=== PATIENT | female | born 1935 | race Caucasian/White ===

== ENCOUNTER 2017-07-02 12:01 | Inpatient (IN) | payer MEDICARE, OTHER ==
[~2017-07-02] VITALS: Ht 157.5 cm; Wt 51.9 kg
[~2017-07-02 12:01] MED LIST: ATV/1 PO; LEVO50TA6 PO; LSN5 PO; MULTTAB58 PO; QUET1TAB34 PO; THM100 PO; ULT50X PO; VENL150T33 PO; VERA240C2 PO; WLLXL300 PO
[2017-07-02] MEDS ORDERED: SODIUM CHLORIDE 0.9% 1000ML 1,000 ML IV STA (12:17)
[2017-07-02] MEDS ORDERED: ACETAMINOPHEN 500 MG TAB PO STA (12:17)
[2017-07-02] MEDS ORDERED: SODIUM CHLORIDE 0.9% 1000ML 1,000 ML IV ONE (12:17)
--- NOTE | 2017-07-02 12:18 | EMERGENCY ROOM VISIT NOTE ---
History Report prepared by Cain: Elizabeth Foote Under the Supervision of: Dr. Chencho Phillips M.D. First contact with patient: 12:11 Chief Complaint: RESPIRATORY PROBLEMS Stated Complaint: COUGH,ACHY, CAN' WALK, TROUBLE BREATHING Nursing Triage Summary: c/o dry cough for 1 wk getting worse and increasing weakness and feeling like she is going to fall History of Present Illness The patient is a 81 year old female who presents to the Emergency Room with complaints of constant generalized illness beginning two days ago. The patient notes a difficulty ambulating, sore throat, cough, and fever. She denies any nausea, vomiting, or diarrhea. She reports taking alkalizer and aspirin for her symptoms with no relief. The patient takes a baby aspirin daily. Source of History: patient Onset: two days ago Position: other (generalized) Quality: other (illness) Timing: constant Associated Symptoms: + fevers, + sorethroat, + cough, No nausea, No vomiting Review of Systems See HPI for pertinent positives & negatives. A total of 10 systems reviewed and were otherwise negative. Past Medical & Surgical Medical Problems: (1) Alcohol abuse (2) Anxiety (3) Anxiety disorder (4) Chronic back pain (5) Chronic hepatitis C (6) Chronic pain (7) Depression (8) Essential hypertension (9) History of alcohol abuse (10) Hypothyroidism (11) Mechanincal Fall (12) Skin Tare/Skin infection Surgical Problems: (1) History of appendectomy (2) Hx of cholecystectomy Family History Patient reports no known family medical history. Social History Smoking Status: Former Smoker Alcohol Use: occasionally Drug Use: none Marital Status: Housing Status: lives with significant other Occupation Status: retired Current/Historical Medications Scheduled Amlodipine Besylate (Amlodipine Besylate), 10 MG PO DAILY Buspirone HCl (Buspirone HCl), 5 MG PO BID Duloxetine HCl (Duloxetine HCl), 20 MG PO DAILY Duloxetine HCl (Duloxetine HCl), 60 MG PO DAILY Folic Acid (Folic Acid), 1 MG PO DAILY Levothyroxine Sodium (Levothyroxine Sodium), 50 MCG PO DAILY Olanzapine (Olanzapine), 15 MG PO DAILY Trazodone Hcl (Trazodone), 50 MG PO DAILY Allergies Coded Allergies: No Known Allergies (Verified , 05/12/13) Physical Exam Vital Signs Date Time Temp Pulse Resp B/P (MAP) Pulse Ox O2 Delivery O2 Flow Rate FiO2 07/02/17 14:39 93 20 93/43 91 Room Air 07/02/17 13:22 37.7 85 20 93/58 94 Room Air 07/02/17 12:34 93 07/02/17 12:27 93 Room Air 07/02/17 12:03 38.1 111 22 106/72 94 Physical Exam GENERAL: Awake, alert, well-appearing, in no acute distress HENT: Normocephalic, atraumatic. Oropharynx unremarkable. EYES: Normal conjunctiva. Sclera non-icteric. NECK: Supple. No nuchal rigidity. FROM. No JVD. RESPIRATORY: Clear to auscultation. CARDIAC: Regular rate, normal rhythm. Extremities warm and well perfused. Pulses equal. ABDOMEN: Soft, non-distended. No tenderness to palpation. No rebound or guarding. No masses. RECTAL: Deferred. MUSCULOSKELETAL: Chest examination reveals no tenderness. The back is symmetrical on inspection without obvious abnormality. There is no CVA tenderness to palpation. No joint edema. LOWER EXTREMITIES: Calves are equal size bilaterally and non-tender. No edema. No discoloration. NEURO: Normal sensorium. No sensory or motor deficits noted. SKIN: No rash or jaundice noted. Medical Decision & Procedures ER Provider Diagnostic Interpretation: Radiology results as stated below per my review and radiologist interpretation: CHEST ONE VIEW PORTABLE FINDINGS: The bones soft tissues and hemidiaphragms are normal. The cardiomediastinal silhouette is normal. The lungs are clear. The pulmonary vasculature is normal. IMPRESSION: Negative chest. The above report was generated using voice recognition software. It may contain grammatical, syntax or spelling errors. Electronically signed by: Ander Rivera M.D. Laboratory Results 07/02/17 12:38 Red Blood Count 4.13, Mean Corpuscular Volume 93.7, Mean Corpuscular Hemoglobin 32.0, Mean Corpuscular Hemoglobin Concent 34.1, Mean Platelet Volume 10.3, Neutrophils (%) (Auto) 80.0, Lymphocytes (%) (Auto) 9.3, Monocytes (%) (Auto) 10.1, Eosinophils (%) (Auto) 0.0, Basophils (%) (Auto) 0.2, Neutrophils # (Auto ) 10.97, Lymphocytes # (Auto) 1.28, Monocytes # (Auto) 1.38, Eosinophils # (Auto ) 0.00, Basophils # (Auto) 0.03 07/02/17 12:38 Test 07/02/17 12:38 07/02/17 13:01 07/02/17 13:16 White Blood Count 13.71 K/uL (4.8-10.8) Red Blood Count 4.13 M/uL (4.2-5.4) Hemoglobin 13.2 g/dL (12.0-16.0) Hematocrit 38.7 % (37-47) Mean Corpuscular Volume 93.7 fL (80-100) Mean Corpuscular Hemoglobin 32.0 pg (25-34) Mean Corpuscular Hemoglobin Concent 34.1 g/dl (32-36) Platelet Count 186 K/uL (130-400) Mean Platelet Volume 10.3 fL (7.4-10.4) Neutrophils (%) (Auto) 80.0 % Lymphocytes (%) (Auto) 9.3 % Monocytes (%) (Auto) 10.1 % Eosinophils (%) (Auto) 0.0 % Basophils (%) (Auto) 0.2 % Neutrophils # (Auto) 10.97 K/uL (1.4-6.5) Lymphocytes # (Auto) 1.28 K/uL (1.2-3.4) Monocytes # (Auto) 1.38 K/uL (0.11-0.59) Eosinophils # (Auto) 0.00 K/uL (0-0.5) Basophils # (Auto) 0.03 K/uL (0-0.2) RDW Standard Deviation 50.0 fL (36.4-46.3) RDW Coefficient of Variation 14.9 % (11.5-14.5) Immature Granulocyte % (Auto) 0.4 % Immature Granulocyte # (Auto) 0.05 K/uL (0.00-0.02) Prothrombin Time 10.8 SECONDS (9.0-12.0) Prothromb Time International Ratio 1.0 (0.9-1.1) Activated Partial Thromboplast Time 25.4 SECONDS (21.0-31.0) Partial Thromboplastin Ratio 1.0 Anion Gap 9.0 mmol/L (3-11) Est Creatinine Clear Calc Drug Dose 25.4 ml/min Estimated GFR () 40.9 Estimated GFR (Non- 35.3 BUN/Creatinine Ratio 10.3 (10-20) Calcium Level 7.9 mg/dl (8.5-10.1) Total Bilirubin 0.5 mg/dl (0.2-1) Aspartate Amino Transf (AST/SGOT) 38 U/L (15-37) Alanine Aminotransferase (ALT/SGPT) 39 U/L (12-78) Alkaline Phosphatase 91 U/L (45-117) Total Creatine Kinase 52 U/L (26-192) Creatine Kinase MB 0.5 ng/ml (0.5-3.6) Creatine Kinase MB Ratio 1.0 (0-3.0) Troponin I 0.040 ng/ml (0-0.045) Total Protein 7.0 gm/dl (6.4-8.2) Albumin 3.1 gm/dl (3.4-5.0) Globulin 3.9 gm/dl (2.5-4.0) Albumin/Globulin Ratio 0.8 (0.9-2) Influenza Type A Antigen Neg for Influ A (NEG) Influenza Type B Antigen Neg for Influ B (NEG) Bedside Lactic Acid Venous 2.89 mmol/L (0.90-1.70) Labs reviewed by ED physician. Medications Administered Medications (Trade) Dose Ordered Sig/Kenzie Route Start Time Stop Time Status Last Admin Dose Admin Sodium Chloride 1,000 ml @ 999 mls/hr Q1H1M STAT IV 07/02/17 12:17 07/02/17 13:17 DC 07/02/17 12:17 999 MLS/HR Acetaminophen (Tylenol Tab) 1,000 mg NOW STAT PO 07/02/17 12:17 07/02/17 12:21 DC 07/02/17 12:24 1,000 MG Albuterol Sulfate (Ventolin 0.083% 2.5MG/3ML Neb) 2.5 mg NOW STAT INH 07/02/17 13:08 07/02/17 13:09 DC 07/02/17 13:34 2.5 MG Albuterol Sulfate (Ventolin 0.083% 2.5MG/3ML Neb) 2.5 mg NOW STAT INH 07/02/17 13:23 07/02/17 13:25 DC 07/02/17 13:23 2.5 MG Potassium Chloride (Stephie Ciel Elix) 40 meq NOW STAT PO 07/02/17 13:23 07/02/17 13:25 DC 07/02/17 13:33 40 MEQ Ceftriaxone Sodium (Rocephin Inj) 1 gm NOW STAT IV 07/02/17 14:13 07/02/17 14:15 DC 07/02/17 14:29 1 GM Vancomycin HCl (Vancomycin 1gm/ 270ml Nss) 1 gm NOW STAT IV 07/02/17 14:13 07/02/17 14:15 DC 07/02/17 14:30 1 GM Potassium Chloride (Stephie Ciel Elix) 40 meq NOW STAT PO 07/02/17 14:45 07/02/17 14:47 DC 07/02/17 16:10 40 MEQ ECG Per My Interpretation Indication: weakness Rate (beats per minute): 96 Rhythm: sinus rhythm Findings: T-wave inversion (Lateral), other (no ST elevation or depression) ED Course 1212: Past medical records reviewed. The patient was evaluated in room A3. A complete history and physical examination was performed. 1217: Ordered Tylenol Tab 1000 mg PO, Sodium Chloride 1000 ml @ 999 mls/hr, Sodium Chloride 1000 ml @ 999 mls/hr. 1308: Ordered Albuterol Sulfate 2.5 mg INH. 1323: Ordered Potassium Chloride 40 meq PO, Albuterol Sulfate 2.5 mg INH. 1339: I updated the patient on her test results. She is resting comfortably. 1413: Ordered Vancomycin HCl 1 gm IV, Rocephin Inj 1 gm IV. 1427: I discussed the patient's case with Dr. Vargas, he has agreed to evaluate the patient for further management and care. Medical Decision Differential diagnosis: Etiologies such as viral syndrome, otitis, pharyngitis, pneumonia, influenza, meningitis, urinary tract infection, sepsis, bacteremia, as well as others were entertained. This is an 81-year-old female who presents complaining of weakness. Patient is hypotensive tachycardic and febrile upon arrival to the emergency department and therefore blood cultures and lactic acid were obtained. The patient was given 30 mL's per kilogram of fluid and started on antibiotics. Patient does not have any evidence of pneumonia on chest x-ray. Flu swab is negative. Patient does have an elevation in her white blood cell count. I did discuss the case with the hospitalist service who agreed to admit the patient. Patient is in agreement with treatment plan. Medication Reconcilliation Current Medication List: was personally reviewed by me Blood Pressure Screening Patient's blood pressure: Low blood pressure Consults Time Called: 1420 Consulting Physician: Dr. Vargas Returned Call: 1429 I discussed the patient's case with Dr. Vargas, he has agreed to evaluate the patient for further management and care. Impression Primary Impression: Sepsis Critical Care I have personally spent greater than 30 minutes of critical care time in the direct management of this patient. This includes bedside care, interpretation of diagnostic studies, and testing, discussion with consultants, patient, and family members, and other required patient management activities. This 30 minutes is in excess of all separately billable procedures. Scribe Attestation The scribe's documentation has been prepared under my direction and personally reviewed by me in its entirety. I confirm that the note above accurately reflects all work, treatment, procedures, and medical decision making performed by me. Departure Information Dispostion Being Evaluated By Hospitalist Referrals Cesar Parra M.D. (PCP) Patient Instructions My [facility] Problem Qualifiers Primary Impression: Sepsis Sepsis type: sepsis due to unspecified organism Qualified Codes: A41.9 - Sepsis, unspecified organism
[2017-07-02 13:01] LABS: HEMATOCRIT 38.7 % (37-47); HEMOGLOBIN 13.2 g/dL (12.0-16.0); MEAN CELL VOLUME 93.7 fL (80-100); MEAN CORPUSCULAR HGB CONC 34.1 g/dl (32-36); MEAN PLATELET VOLUME 10.3 fL (7.4-10.4); PLATELET COUNT 186 K/uL (130-400); RED CELL DISTRIBUTION WIDTH CV 14.9 % (11.5-14.5); WHITE BLOOD COUNT 13.71 K/uL (4.8-10.8)
[2017-07-02] MEDS ORDERED: ALBUTEROL 0.083% NEBU SOLN 3 ML VIAL INH STA ×2 (13:08→13:23)
[2017-07-02 13:09] LABS: PTT PATIENT 25.4 SECONDS (21.0-31.0)
[2017-07-02 13:18] LABS: BASO % 0.2 %; BASO ABS # 0.03 K/uL (0-0.2); IG# 0.05 K/uL (0.00-0.02); LYMPH % 9.3 %; LYMPH ABS # 1.28 K/uL (1.2-3.4); MONO % 10.1 %; MONO ABS # 1.38 K/uL (0.11-0.59); NEUT ABS # 10.97 K/uL (1.4-6.5)
[2017-07-02 13:19] LABS: ALBUMIN 3.1 gm/dl (3.4-5.0); CALCIUM 7.9 mg/dl (8.5-10.1); CREATININE 1.38 mg/dl (0.60-1.20); POTASSIUM 3.1 mmol/L (3.5-5.1)
[2017-07-02] MEDS ORDERED: POTASSIUM CHLORIDE 20 MEQ/15 ML UDC PO STA ×2 (13:23→14:45)
[2017-07-02 13:24] LABS: CKMB 0.5 ng/ml (0.5-3.6)
[2017-07-02] MEDS ORDERED: BSP/5 PO (13:40)
[2017-07-02] MEDS ORDERED: ZYP15 PO (13:40)
[2017-07-02] MEDS ORDERED: NRV/10 PO (13:40)
[2017-07-02] MEDS ORDERED: FLV1 PO (13:40)
[2017-07-02] MEDS ORDERED: TRAZ50TA35 PO (13:40)
[2017-07-02] MEDS ORDERED: CYM20 PO (13:40)
[2017-07-02] MEDS ORDERED: CYM60 PO (13:40)
[2017-07-02 13:46] LABS: INFLUENZA B ANTIGEN Neg for Influ B (NEG)
--- NOTE | 2017-07-02 13:53 | DIAGNOSTIC IMAGING REPORT ---
CHEST ONE VIEW PORTABLE CLINICAL HISTORY: Sepsis dyspnea COMPARISON STUDY: 05/12/2013 FINDINGS: The bones soft tissues and hemidiaphragms are normal. The cardiomediastinal silhouette is normal. The lungs are clear. The pulmonary vasculature is normal. IMPRESSION: Negative chest. The above report was generated using voice recognition software. It may contain grammatical, syntax or spelling errors. Electronically signed by: Ander Rivera M.D. 07/02/2017 1:52 PM Dictated Date/Time: 07/02/2017 1:51 PM
[2017-07-02] MEDS ORDERED: CEFTRIAXONE SOD INJ 1 GM ADDVIAL IV STA (14:13)
[2017-07-02] MEDS ORDERED: VANCOMYCIN 1GM ED/ASU OMNICELL IV STA (14:13)
[2017-07-02] MEDS ORDERED: ONDANSETRON INJ 2 MG/ML 2 ML VIAL IV STA (14:45)
[2017-07-02] MEDS ORDERED: ALUMINUM/MAGNESIUM/SIMETH (MAALOX MAX) 30 ML UDC PO PRN (15:45)
[2017-07-02] MEDS ORDERED: ONDANSETRON INJ 2 MG/ML 2 ML VIAL IV PRN (15:45)
[2017-07-02] MEDS ORDERED: MAGNESIUM HYDROXIDE SUSP 30 ML UDC PO PRN (15:45)
[2017-07-02] MEDS ORDERED: ACETAMINOPHEN 325 MG TAB PO PRN (15:45)
[2017-07-02 17:04] VITALS: BP 114/60; PULSE 89; TEMP 36.9; O2SAT 91; Ht 157.5 cm; Wt 51.9 kg
--- NOTE | 2017-07-02 17:24 | History and Physical ---
History & Physical Date & Time of Service: Jul 02, 2017 at 17:10 Chief Complaint: Sepsis Primary Care Physician: Cesar Parra M.D. History of Present Illness Source: patient, family, clinic records This is an 81 year old female with a PMH of major depressive disorder with anxiety, hypertension, hypothyroidism, CKD stage 3 - presents with a 3-4 day history of a cough, which became more productive yesterday (07/01) - and worsening weakness/ambulatory dysfunction and lethargy. Patient tells me she feels some fevers/chills, muscle weakness throughout; she has a cough. Patient' s son brought her in because he was concerned with how weak she was. Upon presentation, patient noted to have a fever, hypotension, tachycardia, elevated white count and lactic acid level. Patient tells me the only difference she noted was urinary frequency nocturnally. As per family though, she has had this for a long-time now. Denies chest pain, minimal shortness of breath. Past Medical/Surgical History Medical Problems: (1) Abdominal pain (2) Alcohol abuse (3) Anxiety (4) Anxiety disorder (5) Chronic back pain (6) Chronic hepatitis C (7) Chronic pain (8) Contusion of multiple sites (9) Depression (10) Diarrhea (11) Diarrhea (12) Diverticulitis (13) Essential hypertension (14) Fall (15) Fall (16) Forehead laceration (17) Hematoma (18) Hematoma (19) History of alcohol abuse (20) Hypothyroidism (21) Mechanincal Fall (22) Pelvic fracture (23) Radius fracture (24) Skin Tare/Skin infection (25) Wrist fracture, left Surgical Problems: (1) History of appendectomy (2) Hx of cholecystectomy Family History Patient reports no known family medical history. Social History Smoking Status: Former Smoker Drug Use: none Marital Status: Housing status: lives with family Occupational Status: retired Immunizations History of Influenza Vaccine: Unknown History of Tetanus Vaccine?: UNKNOWN Tetanus Immunization Date: Sep 19, 1999 History of Pneumococcal: Yes Pneumococcal Date: Jan 18, 2006 History of Hepatitis B Vaccine: No Hepatitis Immunization Date: Dec 18, 2000 Allergies Coded Allergies: No Known Allergies (Verified , 05/12/13) Home Medications Scheduled Amlodipine Besylate (Amlodipine Besylate), 10 MG PO DAILY Buspirone HCl (Buspirone HCl), 5 MG PO BID Duloxetine HCl (Duloxetine HCl), 20 MG PO DAILY Duloxetine HCl (Duloxetine HCl), 60 MG PO DAILY Folic Acid (Folic Acid), 1 MG PO DAILY Levothyroxine Sodium (Levothyroxine Sodium), 50 MCG PO DAILY Olanzapine (Olanzapine), 15 MG PO DAILY Trazodone Hcl (Trazodone), 50 MG PO DAILY Review of Systems Constitutional: No fever, No chills Eyes: No worsening of vision ENT: No hearing loss Respiratory: + cough, + dyspnea on exertion, No sputum, No wheezing, No shortness of breath, No dyspnea at rest, No hemoptysis Cardiovascular: No chest pain, No edema, No palpitations Abdomen: No pain, No nausea, No vomiting, No diarrhea, No constipation, No GI bleeding Musculoskeletal: No joint pain, No muscle pain Genitourinary - Female: + urinary frequency, No dysuria, No urinary urgency, No urinary incontinence, No urinary retention, No hematuria Neurologic: No memory loss Psychiatric: No depression symptoms, No anxiety, No insomnia Endocrine: No fatigue Hematologic / Lymphatic: No abnormal bleeding/bruising Integumentary: No rash Allergic / Immunologic: No environmental allergies, No seasonal allergies Physical Exam Vital Signs Date Time Temp Pulse Resp B/P (MAP) Pulse Ox O2 Delivery O2 Flow Rate FiO2 07/02/17 16:47 92 20 111/60 92 07/02/17 16:14 92 20 111/60 92 Room Air 07/02/17 14:39 93 20 93/43 91 Room Air 07/02/17 13:22 37.7 85 20 93/58 94 Room Air 07/02/17 12:34 93 07/02/17 12:27 93 Room Air 07/02/17 12:03 38.1 111 22 106/72 94 General Appearance: WD/WN, no apparent distress Head: normocephalic, atraumatic Eyes: normal inspection ENT: hearing grossly normal Neck: supple Respiratory/Chest: chest non-tender, lungs clear, normal breath sounds, no respiratory distress, no accessory muscle use Cardiovascular: no edema, no murmur, normal peripheral pulses, + tachycardia Abdomen/GI: normal bowel sounds, non tender, soft Back: no muscle spasm Extremities/Musculoskelatal: normal inspection, no calf tenderness, normal capillary refill, no pedal edema, normal range of motion Neurologic/Psych: tax manager II-XII nml as tested, no motor/sensory deficits, alert, normal mood/affect, oriented x 3 Skin: normal color Lymphatic: no adenopathy Diagnostics Laboratory Results Results Past 24 Hours Test 07/02/17 12:38 07/02/17 13:01 07/02/17 13:16 07/02/17 16:43 Range/Units White Blood Count 13.71 4.8-10.8 K/uL Red Blood Count 4.13 4.2-5.4 M/uL Hemoglobin 13.2 12.0-16.0 g/dL Hematocrit 38.7 37-47 % Mean Corpuscular Volume 93.7 80-100 fL Mean Corpuscular Hemoglobin 32.0 25-34 pg Mean Corpuscular Hemoglobin Concent 34.1 32-36 g/dl Platelet Count 186 130-400 K/uL Mean Platelet Volume 10.3 7.4-10.4 fL Neutrophils (%) (Auto) 80.0 % Lymphocytes (%) (Auto) 9.3 % Monocytes (%) (Auto) 10.1 % Eosinophils (%) (Auto) 0.0 % Basophils (%) (Auto) 0.2 % Neutrophils # (Auto) 10.97 1.4-6.5 K/uL Lymphocytes # (Auto) 1.28 1.2-3.4 K/uL Monocytes # (Auto) 1.38 0.11-0.59 K/uL Eosinophils # (Auto) 0.00 0-0.5 K/uL Basophils # (Auto) 0.03 0-0.2 K/uL RDW Standard Deviation 50.0 36.4-46.3 fL RDW Coefficient of Variation 14.9 11.5-14.5 % Immature Granulocyte % (Auto) 0.4 % Immature Granulocyte # (Auto) 0.05 0.00-0.02 K/uL Prothrombin Time 10.8 9.0-12.0 SECONDS Prothromb Time International Ratio 1.0 0.9-1.1 Activated Partial Thromboplast Time 25.4 21.0-31.0 SECONDS Partial Thromboplastin Ratio 1.0 Sodium Level 136 136-145 mmol/L Potassium Level 3.1 3.5-5.1 mmol/L Chloride Level 100 98-107 mmol/L Carbon Dioxide Level 27 21-32 mmol/L Anion Gap 9.0 3-11 mmol/L Blood Urea Nitrogen 14 7-18 mg/dl Creatinine 1.38 0.60-1.20 mg/dl Est Creatinine Clear Calc Drug Dose 25.4 ml/min Estimated GFR () 40.9 Estimated GFR (Non- 35.3 BUN/Creatinine Ratio 10.3 10-20 Random Glucose 182 70-99 mg/dl Calcium Level 7.9 8.5-10.1 mg/dl Total Bilirubin 0.5 0.2-1 mg/dl Aspartate Amino Transf (AST/SGOT) 38 15-37 U/L Alanine Aminotransferase (ALT/SGPT) 39 12-78 U/L Alkaline Phosphatase 91 45-117 U/L Total Creatine Kinase 52 26-192 U/L Creatine Kinase MB 0.5 0.5-3.6 ng/ml Creatine Kinase MB Ratio 1.0 0-3.0 Troponin I 0.040 0-0.045 ng/ml Total Protein 7.0 6.4-8.2 gm/dl Albumin 3.1 3.4-5.0 gm/dl Globulin 3.9 2.5-4.0 gm/dl Albumin/Globulin Ratio 0.8 0.9-2 Influenza Type A Antigen Neg for Influ A NEG Influenza Type B Antigen Neg for Influ B NEG Bedside Lactic Acid Venous 2.89 0.90-1.70 mmol/L Urine Color DK YELLOW Urine Appearance CLOUDY CLEAR Urine pH 6.0 4.5-7.5 Urine Specific [place] 1.021 1.000-1.030 Urine Protein TRACE NEG Urine Glucose (UA) NEG NEG Urine Ketones TRACE NEG Urine Occult Blood NEG NEG Urine Nitrite NEG NEG Urine Bilirubin NEG NEG Urine Urobilinogen NEG NEG Urine Leukocyte Esterase MODERATE NEG Urine WBC (Auto) 10-30 0-5 /hpf Urine RBC (Auto) 0-4 0-4 /hpf Urine Hyaline Casts (Auto) 1-5 0-5 /lpf Urine Epithelial Cells (Auto) >30 0-5 /lpf Urine Bacteria (Auto) NEG NEG Urine Renal Epithelial Cells 10-20 0-5 /lpf Test 07/02/17 17:00 Range/Units Microbiology Results 07/02/17 Blood Culture, Received Pending 07/02/17 Blood Culture, Received Pending 07/02/17 Urine Culture, Received Pending Diagnostic Radiology CHEST ONE VIEW PORTABLE CLINICAL HISTORY: Sepsis dyspnea COMPARISON STUDY: 05/12/2013 FINDINGS: The bones soft tissues and hemidiaphragms are normal. The cardiomediastinal silhouette is normal. The lungs are clear. The pulmonary vasculature is normal. IMPRESSION: Negative chest. EKG Sinus rhythm with Premature atrial complexes ST & T wave abnormality, consider inferior ischemia Impression Assessment and Plan This is an 81 year old female with a PMH of major depressive disorder with anxiety, hypertension, hypothyroidism, CKD stage 3 - presents with flu-like symptoms and found to meet sepsis criteria Sepsis - unsure of the cause - possibly related to urine infection, blood culture and urine culture pending - patient meets sepsis criteria, fever, tachycardia, hypotension, leukocytosis, lactic acidosis - plan for broad abx. - will give Rocephin and Azithromycin for now - will give IVFs - monitor vitals, monitor in tele - check flu PCR - recheck lactic acid at 1700 Acute Kidney Injury superimposed on CKD stage 3 - creatinine at baseline is around 0.9 - creatinine today is closer to 1.4 - received bolus in the ED - will give NS @ 100mL/hr Major Depressive Disorder with Anxiety - continue home medications: Buspar, Cymbalta, Trazodone, Zyprexa HTN - hold Amlodipine - monitor BP Hypothyroidism - continue Synthroid DVT ppx - subq heparin FULL CODE Resuscitation Status VTE Prophylaxis Will order VTE Prophylaxis: Yes
[2017-07-02] MEDS: SODIUM CHLORIDE 0.9% 1000ML 1,000 ML IV SCH ×2 (17:44→18:23)
[2017-07-02] MEDS ORDERED: AZITHROMYCIN 250 MG TAB PO SCH (18:00)
[2017-07-02 18:26] LABS: INFLUENZA A PCR Neg for Influ A (NEG)
[2017-07-02 18:28] LABS: INFLUENZA B PCR POS for Influ B (NEG)
[2017-07-02 18:46] VITALS: BP 91/54; PULSE 80; TEMP 36.7; O2SAT 96
--- NOTE | 2017-07-02 19:59 | History and Physical ---
History & Physical Date of Service Jul 02, 2017. History & Physical At about 5PM, patient's serum lactic acid returned >5. Patient had been getting NS @ 100mL/hr. This was changed to NS @ 150mL/hr. Repeat lactic acid ordered for around 9PM. Examined the patient; patient clinically feeling better. Does not appear significantly dehydrated. Patient's Influenza PCR returned + for influenza B. Added Tamiflu, renally dosed. Sepsis likely secondary to Influenza B. Will continue Rocephin to cover possible UTI. Stopped azithromycin at this time; if cough persists or worsens, may add this back on to cover possible bronchitis.
[2017-07-02] MEDS ORDERED: OSELTAMIVIR PHOSPHATE SUSP 30 MG/5 ML UDP PO ONE (20:15)
[2017-07-02] MEDS: HEPARIN SOD 5000 UNIT/0.5 ML CARP SQ SCH (22:13)
[2017-07-02] MEDS ORDERED: ZOLPIDEM TARTRATE 5 MG TAB PO ONE (23:15)
[2017-07-02 23:38] VITALS: BP 93/46; PULSE 77; TEMP 36.7; O2SAT 96
[2017-07-03] VITALS (9 sets, daily range): BP systolic 100–164; BP diastolic 57–90; PULSE 67–118; TEMP 36.7–37.2; O2SAT 92–98
[2017-07-03] MEDS: SODIUM CHLORIDE 0.9% 1000ML 1,000 ML IV SCH (00:22)
[2017-07-03] MEDS ORDERED: ALBUTEROL 0.083% NEBU SOLN 3 ML VIAL INH STA (05:11)
[2017-07-03] MEDS: LEVOTHYROXINE 50 MCG TAB PO SCH (05:36)
[2017-07-03] MEDS: HEPARIN SOD 5000 UNIT/0.5 ML CARP SQ SCH ×3 (05:41→20:14)
--- NOTE | 2017-07-03 06:21 | DIAGNOSTIC IMAGING REPORT ---
CHEST ONE VIEW PORTABLE CLINICAL HISTORY: 81 years-old Female presenting with rule out pulmonary congestion. TECHNIQUE: Portable upright AP view of the chest was obtained. COMPARISON: 07/02/2017. FINDINGS: Atherosclerosis of the aortic arch. Cardiac silhouette normal in size. Mitral annular calcification noted. Bronchial wall thickening. Interval development of right basilar hazy and reticular opacities. Small right pleural effusion suspected. No large pneumothorax. Bandlike opacity at the left lung base. Osteopenia may be present. IMPRESSION: 1. Right basilar infiltrate raises concern for pneumonia, aspiration, or asymmetric edema. 2. Small right pleural effusion. 3. Bronchial wall thickening, nonspecific and could be seen in the setting of congestive change or bronchitis. Electronically signed by: Pacheco Blount M.D. 07/03/2017 6:20 AM Dictated Date/Time: 07/03/2017 6:18 AM
[2017-07-03 06:57] LABS: BASO % 0.3 %; BASO ABS # 0.02 K/uL (0-0.2); EOS % 0.4 %; EOS ABS # 0.03 K/uL (0-0.5); HEMATOCRIT 34.6 % (37-47); HEMOGLOBIN 11.6 g/dL (12.0-16.0); IG# 0.02 K/uL (0.00-0.02); LYMPH % 19.6 %; LYMPH ABS # 1.46 K/uL (1.2-3.4); MEAN CELL VOLUME 96.1 fL (80-100); MEAN CORPUSCULAR HEMOGLOBIN 32.2 pg (25-34); MEAN CORPUSCULAR HGB CONC 33.5 g/dl (32-36); MEAN PLATELET VOLUME 10.3 fL (7.4-10.4); MONO % 10.3 %; MONO ABS # 0.77 K/uL (0.11-0.59); NEUT % 69.1 %; NEUT ABS # 5.15 K/uL (1.4-6.5); PLATELET COUNT 147 K/uL (130-400); RED CELL DISTRIBUTION WIDTH CV 15.1 % (11.5-14.5); RED CELL DISTRIBUTION WIDTH SD 53.6 fL (36.4-46.3); WHITE BLOOD COUNT 7.45 K/uL (4.8-10.8)
[2017-07-03] MEDS: DULOXETINE HCL 20 MG CAP PO SCH (07:18)
[2017-07-03] MEDS: DULOXETINE HCL 60 MG CAP PO SCH (07:19)
[2017-07-03 07:32] LABS: CALCIUM 7.4 mg/dl (8.5-10.1); CREATININE 0.79 mg/dl (0.60-1.20); POTASSIUM 3.6 mmol/L (3.5-5.1)
[2017-07-03] MEDS: ALBUTEROL 0.083% NEBU SOLN 3 ML VIAL INH PRN ×2 (07:47→19:09)
[2017-07-03] MEDS ORDERED: OLANZAPINE 5 MG TAB PO SCH (09:00)
[2017-07-03] MEDS ORDERED: TRAZODONE HCL 50 MG TAB PO SCH (09:00)
[2017-07-03] MEDS ORDERED: LEVOFLOXACIN CONSULT ACTIVE PRN (10:45)
[2017-07-03] MEDS ORDERED: LEVOFLOXACIN / D5W 750 MG in PREMIXED IN D5W 150 ML IV SCH (11:00)
--- NOTE | 2017-07-03 12:27 | Progress Note ---
Internal Med Progress Note Date of Service: Jul 03, 2017. Provider Documentation: SUBJECTIVE: The patient was seen and examined in the telemetry unit She is admitted with sepsis secondary to pneumonia and complicated by influenza She has been feeling a little better this morning. OBJECTIVE: Vital Signs-as noted below Exam: General-no apparent distress Eyes-normal ENT-normal Neck-supple Lungs-decreased breath sounds bilaterally with crackles in the right base Heart-S1-S2 regular no murmur appreciated Abdomen-benign, soft, nontender bowel sounds present Extremities-no edema Neuro-alert awake and oriented 3 No focal sensory or motor deficit appreciated Lab data as noted below. ASSESSMENT & PLAN: This is an 81 year old female with a PMH of major depressive disorder with anxiety, hypertension, hypothyroidism, CKD stage 3 - presents with flu-like symptoms and found to meet sepsis criteria Sepsis -Secondary to right lower lobe infiltration and complicated by influenza B -May have urine infection urine infection, blood culture and urine culture pending - patient met sepsis criteria, fever, tachycardia, hypotension, leukocytosis, lactic acidosis -Received 1 dose of Rocephin and azithromycin, antibiotic changed to Levaquin - will give IVFs -Initial lactic acidosis improved Acute Kidney Injury superimposed on CKD stage 3 - creatinine at baseline is around 0.9 - creatinine today is closer to 1.4 - received bolus in the ED - will give NS @ 100mL/hr -normalized Major Depressive Disorder with Anxiety - continue home medications: Buspar, Cymbalta, Trazodone, Zyprexa HTN - hold Amlodipine - monitor BP Hypothyroidism - continue Synthroid DVT ppx - subq heparin FULL CODE Vital Signs: Date Time Temp Pulse Resp B/P (MAP) Pulse Ox O2 Delivery O2 Flow Rate FiO2 07/03/17 10:51 37.1 78 16 100/61 (74) 97 2.0 07/03/17 07:48 80 18 95 Nasal Cannula 2.0 07/03/17 07:46 36.7 90 16 109/70 (83) 97 2.0 07/03/17 06:02 79 18 97 Nasal Cannula 3.0 07/03/17 04:00 Nasal Cannula 3.0 07/03/17 03:16 37.1 67 20 100/57 (71) 94 Nasal Cannula 3.0 07/03/17 00:01 Nasal Cannula 3.0 07/02/17 23:38 36.7 77 20 93/46 (62) 96 Nasal Cannula 3.0 07/02/17 20:00 Nasal Cannula 3.0 07/02/17 18:46 36.7 80 18 91/54 (66) 96 Room Air 3.0 07/02/17 17:04 36.9 89 20 114/60 91 Room Air 07/02/17 16:47 92 20 111/60 92 07/02/17 16:14 92 20 111/60 92 Room Air 07/02/17 14:39 93 20 93/43 91 Room Air 07/02/17 13:22 37.7 85 20 93/58 94 Room Air 07/02/17 12:34 93 07/02/17 12:27 93 Room Air Lab Results: Results Past 24 Hours Test 07/02/17 12:38 07/02/17 13:01 07/02/17 13:16 07/02/17 16:43 Range/Units White Blood Count 13.71 4.8-10.8 K/uL Red Blood Count 4.13 4.2-5.4 M/uL Hemoglobin 13.2 12.0-16.0 g/dL Hematocrit 38.7 37-47 % Mean Corpuscular Volume 93.7 80-100 fL Mean Corpuscular Hemoglobin 32.0 25-34 pg Mean Corpuscular Hemoglobin Concent 34.1 32-36 g/dl Platelet Count 186 130-400 K/uL Mean Platelet Volume 10.3 7.4-10.4 fL Neutrophils (%) (Auto) 80.0 % Lymphocytes (%) (Auto) 9.3 % Monocytes (%) (Auto) 10.1 % Eosinophils (%) (Auto) 0.0 % Basophils (%) (Auto) 0.2 % Neutrophils # (Auto) 10.97 1.4-6.5 K/uL Lymphocytes # (Auto) 1.28 1.2-3.4 K/uL Monocytes # (Auto) 1.38 0.11-0.59 K/uL Eosinophils # (Auto) 0.00 0-0.5 K/uL Basophils # (Auto) 0.03 0-0.2 K/uL RDW Standard Deviation 50.0 36.4-46.3 fL RDW Coefficient of Variation 14.9 11.5-14.5 % Immature Granulocyte % (Auto) 0.4 % Immature Granulocyte # (Auto) 0.05 0.00-0.02 K/uL Prothrombin Time 10.8 9.0-12.0 SECONDS Prothromb Time International Ratio 1.0 0.9-1.1 Activated Partial Thromboplast Time 25.4 21.0-31.0 SECONDS Partial Thromboplastin Ratio 1.0 Sodium Level 136 136-145 mmol/L Potassium Level 3.1 3.5-5.1 mmol/L Chloride Level 100 98-107 mmol/L Carbon Dioxide Level 27 21-32 mmol/L Anion Gap 9.0 3-11 mmol/L Blood Urea Nitrogen 14 7-18 mg/dl Creatinine 1.38 0.60-1.20 mg/dl Est Creatinine Clear Calc Drug Dose 25.4 ml/min Estimated GFR () 40.9 Estimated GFR (Non- 35.3 BUN/Creatinine Ratio 10.3 10-20 Random Glucose 182 70-99 mg/dl Calcium Level 7.9 8.5-10.1 mg/dl Total Bilirubin 0.5 0.2-1 mg/dl Aspartate Amino Transf (AST/SGOT) 38 15-37 U/L Alanine Aminotransferase (ALT/SGPT) 39 12-78 U/L Alkaline Phosphatase 91 45-117 U/L Total Creatine Kinase 52 26-192 U/L Creatine Kinase MB 0.5 0.5-3.6 ng/ml Creatine Kinase MB Ratio 1.0 0-3.0 Troponin I 0.040 0-0.045 ng/ml Total Protein 7.0 6.4-8.2 gm/dl Albumin 3.1 3.4-5.0 gm/dl Globulin 3.9 2.5-4.0 gm/dl Albumin/Globulin Ratio 0.8 0.9-2 Influenza Type A Antigen Neg for Influ A NEG Influenza Type B Antigen Neg for Influ B NEG Bedside Lactic Acid Venous 2.89 0.90-1.70 mmol/L Urine Color DK YELLOW Urine Appearance CLOUDY CLEAR Urine pH 6.0 4.5-7.5 Urine Specific [place] 1.021 1.000-1.030 Urine Protein TRACE NEG Urine Glucose (UA) NEG NEG Urine Ketones TRACE NEG Urine Occult Blood NEG NEG Urine Nitrite NEG NEG Urine Bilirubin NEG NEG Urine Urobilinogen NEG NEG Urine Leukocyte Esterase MODERATE NEG Urine WBC (Auto) 10-30 0-5 /hpf Urine RBC (Auto) 0-4 0-4 /hpf Urine Hyaline Casts (Auto) 1-5 0-5 /lpf Urine Epithelial Cells (Auto) >30 0-5 /lpf Urine Bacteria (Auto) NEG NEG Urine Renal Epithelial Cells 10-20 0-5 /lpf Test 07/02/17 17:25 07/02/17 17:35 07/02/17 21:08 07/02/17 23:07 Range/Units Lactic Acid Level 5.6 1.8 0.4-2.0 mmol/L Influenza Type A (RT-PCR) Neg for Influ A NEG Influenza Type B (RT-PCR) POS for Influ B NEG Troponin I 0.039 0-0.045 ng/ml Test 07/03/17 06:37 07/03/17 11:28 Range/Units White Blood Count 7.45 4.8-10.8 K/uL Red Blood Count 3.60 4.2-5.4 M/uL Hemoglobin 11.6 12.0-16.0 g/dL Hematocrit 34.6 37-47 % Mean Corpuscular Volume 96.1 80-100 fL Mean Corpuscular Hemoglobin 32.2 25-34 pg Mean Corpuscular Hemoglobin Concent 33.5 32-36 g/dl Platelet Count 147 130-400 K/uL Mean Platelet Volume 10.3 7.4-10.4 fL Neutrophils (%) (Auto) 69.1 % Lymphocytes (%) (Auto) 19.6 % Monocytes (%) (Auto) 10.3 % Eosinophils (%) (Auto) 0.4 % Basophils (%) (Auto) 0.3 % Neutrophils # (Auto) 5.15 1.4-6.5 K/uL Lymphocytes # (Auto) 1.46 1.2-3.4 K/uL Monocytes # (Auto) 0.77 0.11-0.59 K/uL Eosinophils # (Auto) 0.03 0-0.5 K/uL Basophils # (Auto) 0.02 0-0.2 K/uL RDW Standard Deviation 53.6 36.4-46.3 fL RDW Coefficient of Variation 15.1 11.5-14.5 % Immature Granulocyte % (Auto) 0.3 % Immature Granulocyte # (Auto) 0.02 0.00-0.02 K/uL Sodium Level 142 136-145 mmol/L Potassium Level 3.6 3.5-5.1 mmol/L Chloride Level 112 98-107 mmol/L Carbon Dioxide Level 25 21-32 mmol/L Anion Gap 5.0 3-11 mmol/L Blood Urea Nitrogen 9 7-18 mg/dl Creatinine 0.79 0.60-1.20 mg/dl Est Creatinine Clear Calc Drug Dose 42.7 ml/min Estimated GFR () 80.2 Estimated GFR (Non- 69.2 BUN/Creatinine Ratio 11.9 10-20 Random Glucose 95 70-99 mg/dl Lactic Acid Level 1.3 0.4-2.0 mmol/L Calcium Level 7.4 8.5-10.1 mg/dl Troponin I 0.037 0-0.045 ng/ml Microbiology Results 07/02/17 Blood Culture, Received Pending 07/02/17 Blood Culture, Received Pending 07/02/17 Urine Culture, Received Pending
[2017-07-03] MEDS ORDERED: NURSING VERBAL MED ORDER ONE (13:15)
[2017-07-03] MEDS ORDERED: CEFTRIAXONE SOD INJ 1 GM in DEXTROSE 5% ADD-VANTAGE 50ML 50 ML IV SCH (14:00)
[2017-07-03] MEDS ORDERED: OSELTAMIVIR PHOSPHATE SUSP 30 MG/5 ML UDP PO SCH (21:00)
[2017-07-03] MEDS: ZOLPIDEM TARTRATE 5 MG TAB PO PRN (21:42)
[2017-07-04] VITALS (7 sets, daily range): BP systolic 94–135; BP diastolic 51–78; PULSE 81–97; TEMP 36.9–37.8; O2SAT 92–97
[2017-07-04] MEDS: LEVOTHYROXINE 50 MCG TAB PO SCH (06:15)
[2017-07-04] MEDS: HEPARIN SOD 5000 UNIT/0.5 ML CARP SQ SCH ×3 (06:16→19:56)
[2017-07-04 06:44] LABS: HEMATOCRIT 35.4 % (37-47); MEAN CELL VOLUME 93.2 fL (80-100); MEAN CORPUSCULAR HEMOGLOBIN 31.6 pg (25-34); MEAN CORPUSCULAR HGB CONC 33.9 g/dl (32-36); MEAN PLATELET VOLUME 10.8 fL (7.4-10.4); PLATELET COUNT 136 K/uL (130-400); RED CELL DISTRIBUTION WIDTH CV 14.9 % (11.5-14.5); RED CELL DISTRIBUTION WIDTH SD 50.9 fL (36.4-46.3); WHITE BLOOD COUNT 6.94 K/uL (4.8-10.8)
[2017-07-04 07:21] LABS: CALCIUM 7.7 mg/dl (8.5-10.1); CREATININE 0.66 mg/dl (0.60-1.20)
[2017-07-04] MEDS ORDERED: POTASSIUM CHLORIDE 10 MEQ TABCR PO STA (07:25)
[2017-07-04] MEDS: DULOXETINE HCL 20 MG CAP PO SCH (08:16)
[2017-07-04] MEDS: DULOXETINE HCL 60 MG CAP PO SCH (08:16)
[2017-07-04] MEDS: OSELTAMIVIR PHOSPHATE SUSP 30 MG/5 ML UDP PO SCH ×2 (11:08→19:56)
[2017-07-04] MEDS ORDERED: LEVOFLOXACIN / D5W 750 MG in PREMIXED IN D5W 150 ML IV SCH (13:00)
--- NOTE | 2017-07-04 13:30 | Progress Note ---
Internal Med Progress Note Date of Service: Jul 04, 2017. Provider Documentation: SUBJECTIVE: The patient was seen and examined in the telemetry unit She is admitted with sepsis secondary to pneumonia and complicated by influenza Remains weak and anorexic has cough OBJECTIVE: Vital Signs-as noted below Exam: General-no apparent distress Generally weak and lethargic Eyes-normal ENT-normal Neck-supple Lungs-decreased breath sounds bilaterally with crackles in the right base Heart-S1-S2 regular no murmur appreciated Abdomen-benign, soft, nontender bowel sounds present Extremities-no edema Neuro-alert awake and oriented 3 No focal sensory or motor deficit appreciated Lab data as noted below. ASSESSMENT & PLAN: This is an 81 year old female with a PMH of major depressive disorder with anxiety, hypertension, hypothyroidism, CKD stage 3 - presents with flu-like symptoms and found to meet sepsis criteria Sepsis-Right Lower Lobe Pneumonia -Secondary to right lower lobe infiltration and complicated by influenza B -May have urine infection urine infection, blood culture and urine culture pending - patient met sepsis criteria, fever, tachycardia, hypotension, leukocytosis, lactic acidosis -Received 1 dose of Rocephin and azithromycin, antibiotic changed to Levaquin - will give IVFs -Initial lactic acidosis improved -Has cough otherwise doing OK -clinically a lot better Acute Kidney Injury superimposed on CKD stage 3 - creatinine at baseline is around 0.9 - creatinine today is closer to 1.4 - received bolus in the ED - will give NS @ 100mL/hr -normalized -Push oral fluid Major Depressive Disorder with Anxiety - continue home medications: Buspar, Cymbalta, Trazodone, Zyprexa -no acute issue HTN - hold Amlodipine - monitor BP Hypothyroidism - continue Synthroid DVT ppx - subq heparin FULL CODE Likely home in a day or two Vital Signs: Date Time Temp Pulse Resp B/P (MAP) Pulse Ox O2 Delivery O2 Flow Rate FiO2 07/04/17 12:22 37.7 91 20 99/62 (74) 97 07/04/17 12:00 Room Air 07/04/17 08:05 Room Air 07/04/17 07:44 37.7 88 18 107/55 (72) 92 Nasal Cannula 07/04/17 04:00 Nasal Cannula 2.0 07/04/17 03:44 37.8 95 18 94/51 (65) 95 Nasal Cannula 07/04/17 00:00 Nasal Cannula 2.0 07/03/17 23:51 37.2 118 22 164/90 (114) 92 Room Air 2.0 07/03/17 20:00 Room Air 07/03/17 19:10 73 18 98 Nasal Cannula 1.0 07/03/17 19:06 37.0 109 24 150/71 (97) 94 Nasal Cannula 1.5 07/03/17 16:00 Room Air 07/03/17 15:51 36.8 101 18 128/66 (86) 94 Nasal Cannula 1.5 Lab Results: Results Past 24 Hours Test 07/03/17 17:00 07/04/17 06:03 Range/Units Troponin I 0.060 0-0.045 ng/ml White Blood Count 6.94 4.8-10.8 K/uL Red Blood Count 3.80 4.2-5.4 M/uL Hemoglobin 12.0 12.0-16.0 g/dL Hematocrit 35.4 37-47 % Mean Corpuscular Volume 93.2 80-100 fL Mean Corpuscular Hemoglobin 31.6 25-34 pg Mean Corpuscular Hemoglobin Concent 33.9 32-36 g/dl RDW Standard Deviation 50.9 36.4-46.3 fL RDW Coefficient of Variation 14.9 11.5-14.5 % Platelet Count 136 130-400 K/uL Mean Platelet Volume 10.8 7.4-10.4 fL Sodium Level 138 136-145 mmol/L Potassium Level 3.0 3.5-5.1 mmol/L Chloride Level 102 98-107 mmol/L Carbon Dioxide Level 30 21-32 mmol/L Anion Gap 6.0 3-11 mmol/L Blood Urea Nitrogen 7 7-18 mg/dl Creatinine 0.66 0.60-1.20 mg/dl Est Creatinine Clear Calc Drug Dose 51.1 ml/min Estimated GFR () 94.7 Estimated GFR (Non- 81.7 BUN/Creatinine Ratio 10.0 10-20 Random Glucose 80 70-99 mg/dl Calcium Level 7.7 8.5-10.1 mg/dl Magnesium Level 2.0 1.8-2.4 mg/dl
[2017-07-04] MEDS: ZOLPIDEM TARTRATE 5 MG TAB PO PRN (19:47)
[2017-07-04] MEDS ORDERED: TRAZODONE HCL 50 MG TAB PO SCH (21:00)
[2017-07-04] MEDS ORDERED: OLANZAPINE 5 MG TAB PO SCH (21:00)
[2017-07-05 00:12] VITALS: BP 94/60; PULSE 93; TEMP 37.6; O2SAT 92
[2017-07-05] MEDS: HEPARIN SOD 5000 UNIT/0.5 ML CARP SQ SCH ×2 (05:50→13:22)
[2017-07-05] MEDS: LEVOTHYROXINE 50 MCG TAB PO SCH (05:50)
[2017-07-05 06:11] LABS: HEMATOCRIT 35.6 % (37-47); HEMOGLOBIN 12.2 g/dL (12.0-16.0); MEAN CORPUSCULAR HEMOGLOBIN 31.9 pg (25-34); MEAN CORPUSCULAR HGB CONC 34.3 g/dl (32-36); MEAN PLATELET VOLUME 10.6 fL (7.4-10.4); PLATELET COUNT 154 K/uL (130-400); RED CELL DISTRIBUTION WIDTH CV 14.9 % (11.5-14.5); WHITE BLOOD COUNT 4.38 K/uL (4.8-10.8)
[2017-07-05 06:54] LABS: CALCIUM 8.1 mg/dl (8.5-10.1); CREATININE 0.73 mg/dl (0.60-1.20); POTASSIUM 3.3 mmol/L (3.5-5.1)
[2017-07-05 07:40] VITALS: BP 88/52; PULSE 92; TEMP 37; O2SAT 90
[2017-07-05] MEDS ORDERED: POTASSIUM CHLORIDE 10 MEQ TABCR PO STA (08:37)
[2017-07-05] MEDS: DULOXETINE HCL 20 MG CAP PO SCH (09:25)
[2017-07-05] MEDS: DULOXETINE HCL 60 MG CAP PO SCH (09:25)
[2017-07-05] MEDS: OSELTAMIVIR PHOSPHATE SUSP 30 MG/5 ML UDP PO SCH (09:27)
--- NOTE | 2017-07-05 09:40 | Progress Note ---
Internal Med Progress Note Date of Service: Jul 05, 2017. Provider Documentation: SUBJECTIVE: The patient was seen and examined in the telemetry unit She is admitted with sepsis secondary to pneumonia and complicated by influenza Remains weak and anorexic No more cough ,fever and or chills No more sneezing OBJECTIVE: Vital Signs-as noted below Exam: General-no apparent distress Generally weak and lethargic Eyes-normal ENT-normal Neck-supple Lungs-decreased breath sounds bilaterally with crackles in the right base Heart-S1-S2 regular no murmur appreciated Abdomen-benign, soft, nontender bowel sounds present Extremities-no edema Neuro-alert awake and oriented 3 No focal sensory or motor deficit appreciated Lab data as noted below. ASSESSMENT & PLAN: This is an 81 year old female with a PMH of major depressive disorder with anxiety, hypertension, hypothyroidism, CKD stage 3 - presents with flu-like symptoms and found to meet sepsis criteria Hypokalemia Supplement and advised to take potassium containing foods Sepsis-Right Lower Lobe Pneumonia -Secondary to right lower lobe infiltration and complicated by influenza B -May have urine infection urine infection, blood culture and urine culture pending - patient met sepsis criteria, fever, tachycardia, hypotension, leukocytosis, lactic acidosis -Received 1 dose of Rocephin and azithromycin, antibiotic changed to Levaquin - will give IVFs -Initial lactic acidosis improved -Has cough otherwise doing OK -clinically a lot better -Has had PT evaluation -recommended home Acute Kidney Injury superimposed on CKD stage 3 - creatinine at baseline is around 0.9 - creatinine today is closer to 1.4 - received bolus in the ED - will give NS @ 100mL/hr -normalized -Push oral fluid Major Depressive Disorder with Anxiety - continue home medications: Buspar, Cymbalta, Trazodone, Zyprexa -no acute issue HTN - hold Amlodipine - monitor BP Hypothyroidism - continue Synthroid DVT ppx - subq heparin FULL CODE Likely home today Vital Signs: Date Time Temp Pulse Resp B/P (MAP) Pulse Ox O2 Delivery O2 Flow Rate FiO2 07/05/17 07:40 37.0 92 20 88/52 (64) 90 Room Air 07/05/17 00:15 Room Air 07/05/17 00:12 37.6 93 20 94/60 (71) 92 Room Air 07/04/17 17:44 36.9 97 18 135/78 (97) 95 Nasal Cannula 2.0 07/04/17 16:00 96 Nasal Cannula 2.0 07/04/17 15:17 36.9 87 18 103/61 (75) 96 Nasal Cannula 2.0 07/04/17 12:22 37.7 91 20 99/62 (74) 97 07/04/17 12:00 Room Air 07/04/17 11:29 81 96 Lab Results: Results Past 24 Hours Test 07/05/17 05:25 Range/Units White Blood Count 4.38 4.8-10.8 K/uL Red Blood Count 3.83 4.2-5.4 M/uL Hemoglobin 12.2 12.0-16.0 g/dL Hematocrit 35.6 37-47 % Mean Corpuscular Volume 93.0 80-100 fL Mean Corpuscular Hemoglobin 31.9 25-34 pg Mean Corpuscular Hemoglobin Concent 34.3 32-36 g/dl RDW Standard Deviation 51.0 36.4-46.3 fL RDW Coefficient of Variation 14.9 11.5-14.5 % Platelet Count 154 130-400 K/uL Mean Platelet Volume 10.6 7.4-10.4 fL Sodium Level 139 136-145 mmol/L Potassium Level 3.3 3.5-5.1 mmol/L Chloride Level 104 98-107 mmol/L Carbon Dioxide Level 26 21-32 mmol/L Anion Gap 9.0 3-11 mmol/L Blood Urea Nitrogen 10 7-18 mg/dl Creatinine 0.73 0.60-1.20 mg/dl Est Creatinine Clear Calc Drug Dose 46.2 ml/min Estimated GFR () 88.3 Estimated GFR (Non- 76.2 BUN/Creatinine Ratio 14.0 10-20 Random Glucose 80 70-99 mg/dl Calcium Level 8.1 8.5-10.1 mg/dl Magnesium Level 2.1 1.8-2.4 mg/dl
[2017-07-05] MEDS ORDERED: TMFUDL30 PO (11:07)
[2017-07-05] MEDS ORDERED: LVQ750 PO (11:07)
[2017-07-05] MEDS ORDERED: LCTX PO (11:07)
--- NOTE | 2017-07-05 11:09 | Discharge Instructions ---
Discharge Instructions Date of Service Jul 05, 2017. Admission Reason for Admission: Sepsis Discharge Discharge Diagnosis / Problem: Influenza B,Pneumonia Discharge Goals Goal(s): Prevent Disease Progression Activity Recommendations Activity Limitations: resume your previous activity . Instructions / Follow-Up Instructions / Follow-Up Dr Parra on 07/11/17 at 9:25AM Current Hospital Diet Patient's current hospital diet: Regular Diet Discharge Diet Recommended Diet: Regular Diet Pending Studies Studies pending at discharge: no Medical Emergencies . Who to Call and When: Medical Emergencies: If at any time you feel your situation is an emergency, please call 911 immediately. . Non-Emergent Contact Non-Emergency issues call your: Primary Care Provider . Past History Medical & Surgical History: (1) Pneumonia (2) Influenza B (3) History of appendectomy (4) Hx of cholecystectomy (5) Sepsis . "Provider Documentation" section prepared by Cherelle Beasley. .
[2017-07-05 11:11] VITALS: BP 109/67; PULSE 84; O2SAT 94
[2017-07-05 11:13] VITALS: BP 170/96; PULSE 61
--- NOTE | 2017-07-05 11:45 | Discharge Summary ---
Discharge Summary Date of Service Jul 05, 2017. Discharge Summary Admission Date: Jul 02, 2017 at 15:41 Discharge Date: Jul 05, 2017 Discharge Disposition: Home Principal Diagnosis: Influenza B,Pneumonia Secondary Diagnoses/Problems: Please see H&P and Hospital progress note Medication Reconciliation New Medications: Lactobacillus Acidophilus (Lactinex) Tab 2 TAB PO BID, #30 TAB Levofloxacin (Levofloxacin) 750 Mg Tab 750 MG PO Q2D, #3 Oseltamivir Phosphate (Tamiflu) 6 Mg/Ml Tereza 30 MG PO BID for 2 Days, #4 Continued Medications: Amlodipine Besylate (Amlodipine Besylate) 10 Mg Tab 10 MG PO DAILY Buspirone HCl (Buspirone HCl) 5 Mg Tab 5 MG PO BID Duloxetine HCl (Duloxetine HCl) 20 Mg Cap 20 MG PO DAILY Duloxetine HCl (Duloxetine HCl) 60 Mg Cap 60 MG PO DAILY Folic Acid (Folic Acid) 1 Mg Tab 1 MG PO DAILY Levothyroxine Sodium (Levothyroxine Sodium) 50 Mcg Tab 50 MCG PO DAILY, #30 Olanzapine (Olanzapine) 15 Mg Tab 15 MG PO DAILY Trazodone Hcl (Trazodone) 50 Mg Tab 50 MG PO DAILY Admission Information HPI (per Admitting provider): This is an 81 year old female with a PMH of major depressive disorder with anxiety, hypertension, hypothyroidism, CKD stage 3 - presents with a 3-4 day history of a cough, which became more productive yesterday (07/01) - and worsening weakness/ambulatory dysfunction and lethargy. Patient tells me she feels some fevers/chills, muscle weakness throughout; she has a cough. Patient' s son brought her in because he was concerned with how weak she was. Upon presentation, patient noted to have a fever, hypotension, tachycardia, elevated white count and lactic acid level. Patient tells me the only difference she noted was urinary frequency nocturnally. As per family though, she has had this for a long-time now. Denies chest pain, minimal shortness of breath. Past Medical/Surgical History Medical Problems: (1) Abdominal pain (2) Alcohol abuse (3) Anxiety (4) Anxiety disorder (5) Chronic back pain (6) Chronic hepatitis C (7) Chronic pain (8) Contusion of multiple sites (9) Depression (10) Diarrhea (11) Diarrhea (12) Diverticulitis (13) Essential hypertension (14) Fall (15) Fall (16) Forehead laceration (17) Hematoma (18) Hematoma (19) History of alcohol abuse (20) Hypothyroidism (21) Mechanincal Fall (22) Pelvic fracture (23) Radius fracture (24) Skin Tare/Skin infection (25) Wrist fracture, left Surgical Problems: (1) History of appendectomy (2) Hx of cholecystectomy Family History Patient reports no known family medical history. Social History Smoking Status: Former Smoker Drug Use: none Marital Status: Housing status: lives with family Occupational Status: retired Immunizations History of Influenza Vaccine: Unknown History of Tetanus Vaccine?: UNKNOWN Tetanus Immunization Date: Sep 19, 1999 History of Pneumococcal: Yes Pneumococcal Date: Jan 18, 2006 History of Hepatitis B Vaccine: No Hepatitis Immunization Date: Dec 18, 2000 Allergies Coded Allergies: No Known Allergies (Verified , 05/12/13) Home Medications Scheduled Amlodipine Besylate (Amlodipine Besylate), 10 MG PO DAILY Buspirone HCl (Buspirone HCl), 5 MG PO BID Duloxetine HCl (Duloxetine HCl), 20 MG PO DAILY Duloxetine HCl (Duloxetine HCl), 60 MG PO DAILY Folic Acid (Folic Acid), 1 MG PO DAILY Levothyroxine Sodium (Levothyroxine Sodium), 50 MCG PO DAILY Olanzapine (Olanzapine), 15 MG PO DAILY Trazodone Hcl (Trazodone), 50 MG PO DAILY Review of Systems Constitutional: No fever, No chills Eyes: No worsening of vision ENT: No hearing loss Respiratory: + cough, + dyspnea on exertion, No sputum, No wheezing, No shortness of breath, No dyspnea at rest, No hemoptysis Cardiovascular: No chest pain, No edema, No palpitations Abdomen: No pain, No nausea, No vomiting, No diarrhea, No constipation, No GI bleeding Musculoskeletal: No joint pain, No muscle pain Genitourinary - Female: + urinary frequency, No dysuria, No urinary urgency, No urinary incontinence, No urinary retention, No hematuria Neurologic: No memory loss Psychiatric: No depression symptoms, No anxiety, No insomnia Endocrine: No fatigue Hematologic / Lymphatic: No abnormal bleeding/bruising Integumentary: No rash Allergic / Immunologic: No environmental allergies, No seasonal allergies Physical Exam H&P v2 Physical Exam Vital Signs Date Time Temp Pulse Resp B/P (MAP) Pulse Ox O2 Delivery O2 Flow Rate FiO2 07/02/17 16:47 92 20 111/60 92 07/02/17 16:14 92 20 111/60 92 Room Air 07/02/17 14:39 93 20 93/43 91 Room Air 07/02/17 13:22 37.7 85 20 93/58 94 Room Air 07/02/17 12:34 93 07/02/17 12:27 93 Room Air 07/02/17 12:03 38.1 111 22 106/72 94 General Appearance: WD/WN, no apparent distress Head: normocephalic, atraumatic Eyes: normal inspection ENT: hearing grossly normal Neck: supple Respiratory/Chest: chest non-tender, lungs clear, normal breath sounds, no respiratory distress, no accessory muscle use Cardiovascular: no edema, no murmur, normal peripheral pulses, + tachycardia Abdomen/GI: normal bowel sounds, non tender, soft Back: no muscle spasm Extremities/Musculoskelatal: normal inspection, no calf tenderness, normal capillary refill, no pedal edema, normal range of motion 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, no motor/sensory deficits, alert, normal mood/affect, oriented x 3 Skin: normal color Lymphatic: no adenopathy Diagnostics H&P v2 Diagnostics Laboratory Results Results Past 24 Hours Test 07/02/17 12:38 07/02/17 13:01 07/02/17 13:16 07/02/17 16:43 Range/Units White Blood Count 13.71 4.8-10.8 K/uL Red Blood Count 4.13 4.2-5.4 M/uL Hemoglobin 13.2 12.0-16.0 g/dL Hematocrit 38.7 37-47 % Mean Corpuscular Volume 93.7 80-100 fL Mean Corpuscular Hemoglobin 32.0 25-34 pg Mean Corpuscular Hemoglobin Concent 34.1 32-36 g/dl Platelet Count 186 130-400 K/uL Mean Platelet Volume 10.3 7.4-10.4 fL Neutrophils (%) (Auto) 80.0 % Lymphocytes (%) (Auto) 9.3 % Monocytes (%) (Auto) 10.1 % Eosinophils (%) (Auto) 0.0 % Basophils (%) (Auto) 0.2 % Neutrophils # (Auto) 10.97 1.4-6.5 K/uL Lymphocytes # (Auto) 1.28 1.2-3.4 K/uL Monocytes # (Auto) 1.38 0.11-0.59 K/uL Eosinophils # (Auto) 0.00 0-0.5 K/uL Basophils # (Auto) 0.03 0-0.2 K/uL RDW Standard Deviation 50.0 36.4-46.3 fL RDW Coefficient of Variation 14.9 11.5-14.5 % Immature Granulocyte % (Auto) 0.4 % Immature Granulocyte # (Auto) 0.05 0.00-0.02 K/uL Prothrombin Time 10.8 9.0-12.0 SECONDS Prothromb Time International Ratio 1.0 0.9-1.1 Activated Partial Thromboplast Time 25.4 21.0-31.0 SECONDS Partial Thromboplastin Ratio 1.0 Sodium Level 136 136-145 mmol/L Potassium Level 3.1 3.5-5.1 mmol/L Chloride Level 100 98-107 mmol/L Carbon Dioxide Level 27 21-32 mmol/L Anion Gap 9.0 3-11 mmol/L Blood Urea Nitrogen 14 7-18 mg/dl Creatinine 1.38 0.60-1.20 mg/dl Est Creatinine Clear Calc Drug Dose 25.4 ml/min Estimated GFR () 40.9 Estimated GFR (Non- 35.3 BUN/Creatinine Ratio 10.3 10-20 Random Glucose 182 70-99 mg/dl Calcium Level 7.9 8.5-10.1 mg/dl Total Bilirubin 0.5 0.2-1 mg/dl Aspartate Amino Transf (AST/SGOT) 38 15-37 U/L Alanine Aminotransferase (ALT/SGPT) 39 12-78 U/L Alkaline Phosphatase 91 45-117 U/L Total Creatine Kinase 52 26-192 U/L Creatine Kinase MB 0.5 0.5-3.6 ng/ml Creatine Kinase MB Ratio 1.0 0-3.0 Troponin I 0.040 0-0.045 ng/ml Total Protein 7.0 6.4-8.2 gm/dl Albumin 3.1 3.4-5.0 gm/dl Globulin 3.9 2.5-4.0 gm/dl Albumin/Globulin Ratio 0.8 0.9-2 Influenza Type A Antigen Neg for Influ A NEG Influenza Type B Antigen Neg for Influ B NEG Bedside Lactic Acid Venous 2.89 0.90-1.70 mmol/L Urine Color DK YELLOW Urine Appearance CLOUDY CLEAR Urine pH 6.0 4.5-7.5 Urine Specific [place] 1.021 1.000-1.030 Urine Protein TRACE NEG Urine Glucose (UA) NEG NEG Urine Ketones TRACE NEG Urine Occult Blood NEG NEG Urine Nitrite NEG NEG Urine Bilirubin NEG NEG Urine Urobilinogen NEG NEG Urine Leukocyte Esterase MODERATE NEG Urine WBC (Auto) 10-30 0-5 /hpf Urine RBC (Auto) 0-4 0-4 /hpf Urine Hyaline Casts (Auto) 1-5 0-5 /lpf Urine Epithelial Cells (Auto) >30 0-5 /lpf Urine Bacteria (Auto) NEG NEG Urine Renal Epithelial Cells 10-20 0-5 /lpf Test 07/02/17 17:00 Range/Units Microbiology Results 07/02/17 Blood Culture, Received Pending 07/02/17 Blood Culture, Received Pending 07/02/17 Urine Culture, Received Pending Diagnostic Radiology CHEST ONE VIEW PORTABLE CLINICAL HISTORY: Sepsis dyspnea COMPARISON STUDY: 05/12/2013 FINDINGS: The bones soft tissues and hemidiaphragms are normal. The cardiomediastinal silhouette is normal. The lungs are clear. The pulmonary vasculature is normal. IMPRESSION: Negative chest. EKG Sinus rhythm with Premature atrial complexes ST & T wave abnormality, consider inferior ischemia Impression H&P v2 Impression Assessment and Plan This is an 81 year old female with a PMH of major depressive disorder with anxiety, hypertension, hypothyroidism, CKD stage 3 - presents with flu-like symptoms and found to meet sepsis criteria Sepsis - unsure of the cause - possibly related to urine infection, blood culture and urine culture pending - patient meets sepsis criteria, fever, tachycardia, hypotension, leukocytosis, lactic acidosis - plan for broad abx. - will give Rocephin and Azithromycin for now - will give IVFs - monitor vitals, monitor in tele - check flu PCR - recheck lactic acid at 1700 Acute Kidney Injury superimposed on CKD stage 3 - creatinine at baseline is around 0.9 - creatinine today is closer to 1.4 - received bolus in the ED - will give NS @ 100mL/hr Major Depressive Disorder with Anxiety - continue home medications: Buspar, Cymbalta, Trazodone, Zyprexa HTN - hold Amlodipine - monitor BP Hypothyroidism - continue Synthroid DVT ppx - subq heparin FULL CODE Resuscitation Status VTE Prophylaxis Will order VTE Prophylaxis: Yes Physical Exam (per Admitting): General Appearance: WD/WN, no apparent distress Head: normocephalic, atraumatic Eyes: normal inspection ENT: hearing grossly normal Neck: supple Respiratory/Chest: chest non-tender, lungs clear, normal breath sounds, no respiratory distress, no accessory muscle use Cardiovascular: no edema, no murmur, normal peripheral pulses, + tachycardia Abdomen/GI: normal bowel sounds, non tender, soft Back: no muscle spasm Extremities/Musculoskelatal: normal inspection, no calf tenderness, normal capillary refill, no pedal edema, normal range of motion 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, no motor/sensory deficits, alert , normal mood/affect, oriented x 3 Skin: normal color Lymphatic: no adenopathy Hospital Course This is an 81 year old female with a PMH of major depressive disorder with anxiety, hypertension, hypothyroidism, CKD stage 3 - presents with flu-like symptoms and found to meet sepsis criteria Hypokalemia Supplement and advised to take potassium containing foods Sepsis-Right Lower Lobe Pneumonia -Secondary to right lower lobe infiltration and complicated by influenza B -May have urine infection urine infection, blood culture and urine culture pending - patient met sepsis criteria, fever, tachycardia, hypotension, leukocytosis, lactic acidosis -Received 1 dose of Rocephin and azithromycin, antibiotic changed to Levaquin - will give IVFs -Initial lactic acidosis improved -Has cough otherwise doing OK -clinically a lot better -Has had PT evaluation -recommended home Acute Kidney Injury superimposed on CKD stage 3 - creatinine at baseline is around 0.9 - creatinine today is closer to 1.4 - received bolus in the ED - will give NS @ 100mL/hr -normalized -Push oral fluid Major Depressive Disorder with Anxiety - continue home medications: Buspar, Cymbalta, Trazodone, Zyprexa -no acute issue HTN - hold Amlodipine - monitor BP Hypothyroidism - continue Synthroid DVT ppx - subq heparin FULL CODE Likely home today Total time spent on discharge = 35 minutes This includes examination of the patient, discharge planning, medication reconciliation, and communication with other providers. Discharge Instructions Date of Service Jul 05, 2017. Admission Reason for Admission: Sepsis Discharge Discharge Diagnosis / Problem: Influenza B,Pneumonia Discharge Goals Goal(s): Prevent Disease Progression Activity Recommendations Activity Limitations: resume your previous activity . Instructions / Follow-Up Instructions / Follow-Up Dr Parra on 07/11/17 at 9:25AM Current Hospital Diet Patient's current hospital diet: Regular Diet Discharge Diet Recommended Diet: Regular Diet Pending Studies Studies pending at discharge: no Medical Emergencies . Who to Call and When: Medical Emergencies: If at any time you feel your situation is an emergency, please call 911 immediately. . Non-Emergent Contact Non-Emergency issues call your: Primary Care Provider . Past History Medical & Surgical History: (1) Pneumonia (2) Influenza B (3) History of appendectomy (4) Hx of cholecystectomy (5) Sepsis . "Provider Documentation" section prepared by Cherelle Beasley. . <Electronically signed by Cherelle Beasley M.D.> Signed: 07/05/17 [id number] Additional Copies To Cesar Parra M.D.
[2017-07-05 11:55] VITALS: BP 109/67; PULSE 84; TEMP 37; O2SAT 94
[2017-07-05 14:52] VITALS: BP 105/70; PULSE 91; TEMP 37; O2SAT 91
[2017-07-06] MEDS ORDERED: LEVOFLOXACIN / D5W 750 MG in PREMIXED IN D5W 150 ML IV SCH (13:00)
== END 2017-07-05 15:15 | disposition home or self-care (01) | DRG 871 ==
LOC: C.EDB 12:02 → C.2T 15:41 → ENRESERV 16:00 → C.2T 18:40 → ENRESERV 07-04 17:04 → C.4E 07-04 17:39
PROVIDERS: ADMIT Family Medicine; ATTEND Internal Medicine
DX: A41.9 Sepsis, unspecified organism (principal); J10.00 Influenza due to other identified influenza virus with unspecified type of pneumonia; N17.9 Acute kidney failure, unspecified; N39.0 Urinary tract infection, site not specified; E87.6 Hypokalemia; F32.9 Major depressive disorder, single episode, unspecified; F41.8 Other specified anxiety disorders; I12.9 Hypertensive chronic kidney disease with stage 1 through stage 4 chronic kidney disease, or unspecified chronic kidney disease; N18.3 Chronic kidney disease, stage 3 (moderate); E03.9 Hypothyroidism, unspecified; Z87.891 Personal history of nicotine dependence; Z79.899 Other long term (current) drug therapy

== ENCOUNTER 2018-04-16 17:04 | Observation (INO) ==
[2018-04-16] MEDS ORDERED: ALBUT/IPRATROP 3MG/0.5MG NEB 3 ML VIAL NEB STA (17:13)
[2018-04-16] MEDS ORDERED: SODIUM CHLORIDE 0.9% 500 ML IV SCH (17:15)
[2018-04-16 17:32] LABS: Basophils # (auto) 0.04 K/uL (0-0.2); Basophils % (auto) 0.4 %; Eosinophils # (auto) 0.19 K/uL (0-0.5); Eosinophils % (auto) 1.8 %; Hematocrit (blood only) 41.6 % (37-47); Hemoglobin 14.1 g/dL (12.0-16.0); Immature Granulocytes # (auto) 0.02 K/uL (0.00-0.02); Immature Granulocytes % (auto) 0.2 %; Lymphocytes # (auto) 2.43 K/uL (1.2-3.4); Lymphocytes % (auto) 23.6 %; Mean Corpuscular Hgb Conc 33.9 g/dL (32-36); Mean Corpuscular Volume 93.3 fL (80-100); Mean Platelet Volume 10.9 fL (7.4-10.4); Monocytes # (auto) 0.64 K/uL (0.11-0.59); Monocytes % (auto) 6.2 %; Neutrophils # (auto) 6.97 K/uL (1.4-6.5); Neutrophils % (auto) 67.8 %; Platelet Count 256 K/uL (130-400); RDW Coefficient of Variation 14.3 % (11.5-14.5); RDW Standard Deviation 48.1 fL (36.4-46.3); Red Blood Count 4.46 M/uL (4.2-5.4); White Blood Count 10.29 K/uL (4.8-10.8)
--- NOTE | 2018-04-16 17:32 | XRay Report ---
SINGLE VIEW CHEST CLINICAL HISTORY: Atypical chest pain. FINDINGS: An AP, portable, upright chest radiograph is compared to study dated 01/29/2018. The examin ation is degraded by portable technique and patient rotation. The cardiomediastinal silhouette is un remarkable, noting atherosclerotic calcification of the thoracic aorta. The mitral annulus is densely calcified. A calcified granuloma is noted at the right lung base. Chronic interstitial thickening is similar to previous. No airspace consolidation or large pleural effusion is identified. No pneumotho rax is seen. The skeletal structures are osteopenic. There are healed right-sided rib fractures. Chol ecystectomy clips are identified in the right upper quadrant. IMPRESSION: No active disease in the chest. Electronically signed by: Miguel Mann M.D. 04/16/2018 5:30 PM
[2018-04-16 17:54] LABS: Alanine Aminotransferase 41 U/L (12-78); Albumin Level 3.8 gm/dl (3.4-5.0); Aspartate Aminotransferase 36 U/L (15-37); Blood Urea Nitrogen 20 mg/dl (7-18); Calcium 9.5 mg/dl (8.5-10.1); Carbon Dioxide 25 mmol/L (21-32); Chloride 103 mmol/L (98-107); Creatinine Clr Calc Pharmacy 29.8 ml/min; Est GFR (African American) 52.8; Est GFR (Non-African American) 45.6; Glucose 96 mg/dl (70-99); Potassium 3.5 mmol/L (3.5-5.1); Sodium 138 mmol/L (136-145)
[2018-04-16 18:05] LABS: Albumin Globulin Ratio 0.9 (0.9-2); Alkaline Phosphatase 92 U/L (45-117); Bilirubin,Total 0.6 mg/dl (0.2-1); Globulin 4.3 gm/dl (2.5-4.0); NT Pro B Type Natriuretic Pept 74 pg/ml (0-1800); Phosphorus 3.2 mg/dl (2.5-4.9); Total Protein 8.1 gm/dl (6.4-8.2); Troponin I < 0.015 ng/ml (0-0.045)
[2018-04-16 18:17] LABS: Influenza A virus by PCR Neg for Influ A (Neg); Influenza B virus by PCR Neg for Influ B (Neg)
[2018-04-16] MEDS ORDERED: SODIUM CHLORIDE 0.9% 1000ML 500 ML IV ONE (18:47)
[2018-04-16 20:02] LABS: Appearance Urine Clear (Clear); Bacteria Urine Automated Negative (Negative); Bilirubin Urine Negative (Negative); Color Urine Yellow; Glucose Urine UA Negative (Negative); Ketones Urine 1+ (Negative); Leukocyte Esterase Urine 2+ (Negative); Nitrite Urine Negative (Negative); Protein Urine Negative (Negative); Specific Gravity Urine 1.011 (1.000-1.030); Urobilinogen Urine Negative (Negative)
[2018-04-16] MEDS ORDERED: cephALEXin 500 MG CAP PO STA (20:09)
--- NOTE | 2018-04-16 20:19 | Emergency Department Note ---
Entered by Omid Gonzalez acting as a scribe for John Ornelas MD History of Present Illness General Chief complaint: Illness Time Seen by Provider: 04/16/18 17:06 Source: patient History of Present Illness Provider complaint: weakness Onset (ago): day(s) (few days ago) Location: head (general) Pain Consistency: + other (worsening) Quality: + other (weakness) Associated symptoms: + denies other symptoms (diarrhea, dysuria, congestion) and + nausea/vomiting (+ nausea, - vomiting); no cough The patient is an 82 year old female who presents to the Emergency Room with complaints of worsening generalized weakness that started a few days ago. Per nursing, the patient has not had any recent fevers. The patient admits to occasionally being nauseous, but denies any vomiting, diarrhea, dysuria, cough, or congestion. The patient states she typically becomes short of breath when she is walking, but this is normal for her. The patient denies any history of COPD, asthma, or heart attacks. She admits to being a former smoker who quit four years ago. The patient denies being on any blood thinners or water pills. Home Medications Home Medications Medication Instructions Recorded Confirmed Type amlodipine 10 mg PO DAILY 01/29/18 04/16/18 History aspirin [Aspir-81] 81 mg PO DAILY 01/29/18 04/16/18 History buspirone 5 mg PO BID 01/29/18 04/16/18 History celecoxib 100 mg PO BID 01/29/18 04/16/18 History cholecalciferol (vitamin D3) 1,000 unit PO DAILY 01/29/18 04/16/18 History [Vitamin D3] duloxetine 20 mg PO DAILY 01/29/18 04/16/18 History duloxetine 60 mg PO DAILY 01/29/18 04/16/18 History folic acid 1 mg PO DAILY 01/29/18 04/16/18 History levothyroxine 50 mg PO DAILY 01/29/18 04/16/18 History olanzapine [Zyprexa] 15 mg PO HS 01/29/18 04/16/18 History trazodone 50 mg PO HS 01/29/18 04/16/18 History levofloxacin [Levaquin] 750 mg PO Q48H #2 tab 01/31/18 04/16/18 Rx Allergies Allergy/AdvReac Type Severity Reaction Status Date / Time No Known Allergies Allergy Unknown Verified 04/16/18 17:47 Past Med/Surg History Medical History HTN (hypertension) (Chronic) Chronic hepatitis C (Chronic) ANÍBAL (generalized anxiety disorder) (Chronic) MDD (major depressive disorder) (Chronic) CKD (chronic kidney disease), stage III (Chronic) Hypothyroidism (Chronic) History of alcohol abuse (Resolved) Acute bronchitis Surgical History History of appendectomy (Resolved) Hx of cholecystectomy (Resolved) Family History Other Cancer Social History marital status: / Current Living Situation: Family Current Living Situation Comment: son Other Information That Helps Us Care for You: No Feels Safe at Home: Yes Safety Concerns: Feels Safe At This Time Smoking Status: Former smoker Cigarettes per Day: quit 25 years ago Hx Alcohol Use: Yes Alcohol type: beer Alcohol Intake Frequency: holidays/ special occasions only Hx Substance Use: No Beliefs That Will Affect Care: None Communication Ability: Effective Review of Systems See HPI for pertinent positives & negatives. and A total of 10 systems reviewed and were otherwise negative Physical Exam Vital Signs Vital Signs - 24 hr 04/16/18 16:48 04/16/18 17:12 04/16/18 18:41 Temperature 37.4 C Temperature Source Oral Sepsis Recent Fever Within 48 Hours No Sepsis New/Unexplained Change in Mental Status No Sepsis Action Taken by Nursing No Action Required Pulse Rate 97 H 80 Pulse Rate [Left Finger] 108 H Pulse Rhythm Regular Regular Pulse Rhythm [Left Finger] Regular Pulse Strength Normal Pulse Strength [Left Finger] Normal Respiratory Rate 20 20 20 Respiratory Effort / Characteristics Non-Labored Spontaneous Non-Labored Spontaneous Respiratory Depth Normal Normal Respiratory Pattern Regular Regular Blood Pressure 168/86 H Blood Pressure [Right Arm] 132/95 Blood Pressure Mean 113 Blood Pressure Mean [Right Arm] 107 Blood Pressure Position Sitting Blood Pressure Position [Right Arm] Sitting Pulse Oximetry 94 97 97 Oxygen Delivery Method Room Air Room Air Room Air 04/16/18 19:00 04/16/18 20:48 04/16/18 21:46 Temperature Temperature Source Sepsis Recent Fever Within 48 Hours Sepsis New/Unexplained Change in Mental Status Sepsis Action Taken by Nursing Pulse Rate Pulse Rate [Left Finger] 87 97 H 91 H Pulse Rhythm Pulse Rhythm [Left Finger] Pulse Strength Pulse Strength [Left Finger] Respiratory Rate 18 18 18 Respiratory Effort / Characteristics Respiratory Depth Respiratory Pattern Blood Pressure Blood Pressure [Right Arm] 131/65 152/77 H 174/88 H Blood Pressure Mean Blood Pressure Mean [Right Arm] 87 102 116 Blood Pressure Position Blood Pressure Position [Right Arm] Pulse Oximetry 98 98 97 Oxygen Delivery Method 04/16/18 22:00 04/16/18 23:51 04/17/18 07:57 Temperature 36.7 C 36.8 C 36.7 C Temperature Source Oral Oral Oral Sepsis Recent Fever Within 48 Hours Sepsis New/Unexplained Change in Mental Status Sepsis Action Taken by Nursing Pulse Rate Pulse Rate [Left Finger] 90 86 58 L Pulse Rhythm Pulse Rhythm [Left Finger] Pulse Strength Pulse Strength [Left Finger] Respiratory Rate 24 20 16 Respiratory Effort / Characteristics SOB on Exertion Respiratory Depth Normal Respiratory Pattern Blood Pressure Blood Pressure [Right Arm] 133/90 115/65 101/63 Blood Pressure Mean Blood Pressure Mean [Right Arm] 104 81 75 Blood Pressure Position Blood Pressure Position [Right Arm] Lying Lying Pulse Oximetry 95 94 95 Oxygen Delivery Method Room Air Room Air 04/17/18 08:15 04/17/18 15:00 04/17/18 16:23 Temperature 37.1 C 36.8 C Temperature Source Oral Oral Sepsis Recent Fever Within 48 Hours Sepsis New/Unexplained Change in Mental Status Sepsis Action Taken by Nursing Pulse Rate Pulse Rate [Left Finger] 77 106 H Pulse Rhythm Pulse Rhythm [Left Finger] Pulse Strength Pulse Strength [Left Finger] Respiratory Rate 18 18 Respiratory Effort / Characteristics Non-Labored Spontaneous Respiratory Depth Normal Respiratory Pattern Regular Blood Pressure Blood Pressure [Right Arm] 108/60 159/82 H Blood Pressure Mean Blood Pressure Mean [Right Arm] 76 107 Blood Pressure Position Blood Pressure Position [Right Arm] Lying Left Lateral Pulse Oximetry 96 93 Oxygen Delivery Method Room Air Room Air Room Air GENERAL: Awake, alert, fatigued appearing, in no distress HENT: Normocephalic, atraumatic. Oropharynx with dry mucous membranes and otherwise unremarkable. EYES: Normal conjunctiva. Sclera non-icteric. NECK: Supple. No nuchal rigidity. FROM. No JVD. RESPIRATORY: Clear to auscultation. Diminished breath sounds at base. Scant wheezing, but otherwise clear. CARDIAC: Regular rate, normal rhythm. Extremities warm and well perfused. Pulses equal. ABDOMEN: Soft, non-distended. No tenderness to palpation. No rebound or guarding. No masses. RECTAL: Deferred. MUSCULOSKELETAL: Chest examination reveals no tenderness. The back is symmetrical on inspection without obvious abnormality. There is no CVA tenderness to palpation. No joint edema. LOWER EXTREMITIES: Calves are equal size bilaterally and non-tender. Scant lower extremity edema. No discoloration. NEURO: Normal sensorium. No sensory or motor deficits noted. SKIN: No rash or jaundice noted. Course 1705: Past medical records reviewed. The patient was evaluated in room C1B, and a complete history and physical examination were performed. 2015: I checked in on the patient and she states she still feels very weak and unsteady. She is agreeable to going into rehab placement. If not successful, she is agreeable with being admitted. 2031: I reviewed the patient's case with Dr. Fermin [facility] Hospitalist. He will evaluate the patient for further management. Consultations Consultation #1: [facility] Time: 20:32 Administered Medications Amlodipine Besylate (Norvasc) 10 mg PO DAILY [facility] Stop: 05/17/18 08:59 Last Admin: 04/17/18 07:55 Dose: 10 mg Aspirin (Ecotrin Ectab) 81 mg PO DAILY [facility] Stop: 05/17/18 08:59 Last Admin: 04/17/18 07:55 Dose: 81 mg Buspirone HCl (Buspar) 5 mg PO BID [facility] Stop: 05/16/18 22:18 Last Admin: 04/17/18 07:55 Dose: 5 mg Admin: 04/16/18 23:29 Dose: 5 mg Duloxetine HCl (Cymbalta) 80 mg PO DAILY [facility] Stop: 05/17/18 08:59 Last Admin: 04/17/18 07:55 Dose: 80 mg Enoxaparin Sodium (Lovenox) 30 mg SQ QAM [facility] Stop: 05/17/18 08:59 Last Admin: 04/17/18 10:06 Dose: 30 mg Folic Acid (Folvite) 1 mg PO QAM [facility] Stop: 05/17/18 08:59 Last Admin: 04/17/18 07:55 Dose: 1 mg Thiamine HCl 100 mg/ Syringe 10 mls @ 2 mls/min IV QAM [facility] Stop: 05/17/18 08:59 Last Admin: 04/17/18 07:57 Dose: 2 mls/min Levothyroxine Sodium (Synthroid) 50 mcg PO DAILYBB [facility] Stop: 05/17/18 06:29 Last Admin: 04/17/18 07:54 Dose: 50 mcg Multivitamins (Multivitamin Tab) 1 tab PO QAM [facility] Stop: 05/17/18 08:59 Last Admin: 04/17/18 10:06 Dose: 1 tab Olanzapine (Zyprexa) 15 mg PO HS [facility] Stop: 05/16/18 22:18 Last Admin: 04/16/18 23:29 Dose: 15 mg Discontinued Medications Albuterol (Duoneb) 3 ml NEB NOW STA Stop: 04/16/18 17:14 Last Admin: 04/16/18 17:35 Dose: 3 ml Cephalexin HCl (Keflex) 500 mg PO NOW STA Stop: 04/16/18 20:10 Last Admin: 04/16/18 20:26 Dose: 500 mg Cephalexin HCl (Keflex) Confirm Administered Dose 500 mg PO .STK-MED ONE Stop: 04/16/18 20:25 Last Admin: 04/16/18 20:25 Dose: Not Given Sodium Chloride (Nss) 500 mls @ 999 mls/hr IV .Q31M [facility] Stop: 04/16/18 17:45 Last Infusion: 04/16/18 18:10 Dose: Admin: 04/16/18 17:35 Dose: 999 mls/hr Sodium Chloride (Nss 1000ml) 500 mls @ 999 mls/hr IV .Q31M ONE Stop: 04/16/18 19:17 Last Infusion: 04/16/18 20:09 Dose: 0 mls/hr Admin: 04/16/18 19:01 Dose: 999 mls/hr Influenza Virus Vaccine (Fluzone High-Dose Pf) 0.5 ml IM .ONCE ONE Stop: 04/17/18 00:31 Last Admin: 04/17/18 08:07 Dose: Not Given Pneumococcal Polyvalent Vaccine (Pneumovax-23) 25 mcg IM .ONCE ONE Stop: 04/17/18 00:31 Last Admin: 04/17/18 08:08 Dose: Not Given Medical Decision Making Differential Diagnosis Differential diagnosis: Etiologies such as metabolic, infection, hypo/hyperglycemia, electrolyte abnormalities, cardiac sources, intracerebral event, toxicologic, neurologic, as well as others were entertained. Medical Records Attestation: I reviewed the patient's medical records. Home Medications Current Medication List: was personally reviewed by me Laboratory Data Attestation: I reviewed the patient's lab results. Result diagrams: 04/17/18 05:19 04/16/18 17:13 Lab Results 04/16/18 04/16/18 04/16/18 Range/Units 17:13 17:13 17:30 WBC 10.29 (4.8-10.8) K/uL RBC 4.46 (4.2-5.4) M/uL Hgb 14.1 (12.0-16.0) g/dL Hct 41.6 (37-47) % MCV 93.3 (80-100) fL MCH 31.6 (25-34) pg MCHC 33.9 (32-36) g/dL RDW Std Deviation 48.1 H (36.4-46.3) fL RDW Coeff of Lázaro 14.3 (11.5-14.5) % Plt Count 256 (130-400) K/uL MPV 10.9 H (7.4-10.4) fL Immature Gran % (Auto) 0.2 % Neut % (Auto) 67.8 % Lymph % (Auto) 23.6 % Hale % (Auto) 6.2 % Eos % (Auto) 1.8 % Baso % (Auto) 0.4 % Immature Gran # (Auto) 0.02 (0.00-0.02) K/uL Neut # (Auto) 6.97 H (1.4-6.5) K/uL Lymph # (Auto) 2.43 (1.2-3.4) K/uL Hale # (Auto) 0.64 H (0.11-0.59) K/uL Eos # (Auto) 0.19 (0-0.5) K/uL Baso # (Auto) 0.04 (0-0.2) K/uL PT (9.0-12.0) Seconds INR (0.9-1.1) Sodium 138 (136-145) mmol/L Potassium 3.5 (3.5-5.1) mmol/L Chloride 103 (98-107) mmol/L Carbon Dioxide 25 (21-32) mmol/L Anion Gap 10.0 (3-11) BUN 20 H (7-18) mg/dl Creatinine 1.11 (0.6-1.2) mg/dl Est Cr Clr Drug Dosing 29.8 ml/min Est GFR ( Amer) 52.8 Est GFR (Non-Af Amer) 45.6 BUN/Creatinine Ratio 18.0 (10-20) Glucose 96 (70-99) mg/dl Calcium 9.5 (8.5-10.1) mg/dl Phosphorus 3.2 (2.5-4.9) mg/dl Magnesium 2.0 (1.8-2.4) mg/dl Total Bilirubin 0.6 (0.2-1) mg/dl AST 36 (15-37) U/L ALT 41 (12-78) U/L Alkaline Phosphatase 92 (45-117) U/L Troponin I < 0.015 (0-0.045) ng/ml NT-Pro-B Natriuret Pep 74 (0-1800) pg/ml Total Protein 8.1 (6.4-8.2) gm/dl Albumin 3.8 (3.4-5.0) gm/dl Globulin 4.3 H (2.5-4.0) gm/dl Albumin/Globulin Ratio 0.9 (0.9-2) Lipase 163 (73-393) U/L TSH 1.350 (0.300-4.500) uIu/ml Urine Color Urine Appearance (Clear) Urine pH (4.5-7.5) Ur Specific Bayard (1.000-1.030) Urine Protein (Negative) Urine Glucose (UA) (Negative) Urine Ketones (Negative) Urine Blood (Negative) Urine Nitrite (Negative) Urine Bilirubin (Negative) Urine Urobilinogen (Negative) Ur Leukocyte Esterase (Negative) Urine WBC (Auto) (0-5) /hpf Urine RBC (Auto) (0-4) /hpf U Hyaline Cast (Auto) (0-5) /lpf U Epithel Cells (Auto) (0-5) /lpf Urine Bacteria (Auto) (Negative) Ethyl Alcohol mg/dL (0-3) mg/dl Influenza Type A (PCR) Neg for Influ A (Neg) Influenza Type B (PCR) Neg for Influ B (Neg) 04/16/18 04/16/18 04/17/18 Range/Units 17:34 19:39 05:19 WBC 8.05 (4.8-10.8) K/uL RBC 4.02 L (4.2-5.4) M/uL Hgb 12.5 (12.0-16.0) g/dL Hct 37.5 (37-47) % MCV 93.3 (80-100) fL MCH 31.1 (25-34) pg MCHC 33.3 (32-36) g/dL RDW Std Deviation 48.5 H (36.4-46.3) fL RDW Coeff of Lázaro 14.3 (11.5-14.5) % Plt Count 220 (130-400) K/uL MPV 10.7 H (7.4-10.4) fL Immature Gran % (Auto) 0.2 % Neut % (Auto) 52.3 % Lymph % (Auto) 34.8 % Hale % (Auto) 8.9 % Eos % (Auto) 3.4 % Baso % (Auto) 0.4 % Immature Gran # (Auto) 0.02 (0.00-0.02) K/uL Neut # (Auto) 4.21 (1.4-6.5) K/uL Lymph # (Auto) 2.80 (1.2-3.4) K/uL Hale # (Auto) 0.72 H (0.11-0.59) K/uL Eos # (Auto) 0.27 (0-0.5) K/uL Baso # (Auto) 0.03 (0-0.2) K/uL PT (9.0-12.0) Seconds INR (0.9-1.1) Sodium (136-145) mmol/L Potassium (3.5-5.1) mmol/L Chloride (98-107) mmol/L Carbon Dioxide (21-32) mmol/L Anion Gap (3-11) BUN (7-18) mg/dl Creatinine (0.6-1.2) mg/dl Est Cr Clr Drug Dosing ml/min Est GFR ( Amer) Est GFR (Non-Af Amer) BUN/Creatinine Ratio (10-20) Glucose (70-99) mg/dl Calcium (8.5-10.1) mg/dl Phosphorus (2.5-4.9) mg/dl Magnesium (1.8-2.4) mg/dl Total Bilirubin (0.2-1) mg/dl AST (15-37) U/L ALT (12-78) U/L Alkaline Phosphatase (45-117) U/L Troponin I (0-0.045) ng/ml NT-Pro-B Natriuret Pep (0-1800) pg/ml Total Protein (6.4-8.2) gm/dl Albumin (3.4-5.0) gm/dl Globulin (2.5-4.0) gm/dl Albumin/Globulin Ratio (0.9-2) Lipase (73-393) U/L TSH (0.300-4.500) uIu/ml Urine Color Yellow Urine Appearance Clear (Clear) Urine pH 7.0 (4.5-7.5) Ur Specific Bayard 1.011 (1.000-1.030) Urine Protein Negative (Negative) Urine Glucose (UA) Negative (Negative) Urine Ketones 1+ H (Negative) Urine Blood Negative (Negative) Urine Nitrite Negative (Negative) Urine Bilirubin Negative (Negative) Urine Urobilinogen Negative (Negative) Ur Leukocyte Esterase 2+ H (Negative) Urine WBC (Auto) 10-30 H (0-5) /hpf Urine RBC (Auto) 0-4 (0-4) /hpf U Hyaline Cast (Auto) 1-5 (0-5) /lpf U Epithel Cells (Auto) 10-20 H (0-5) /lpf Urine Bacteria (Auto) Negative (Negative) Ethyl Alcohol mg/dL < 3.0 (0-3) mg/dl Influenza Type A (PCR) (Neg) Influenza Type B (PCR) (Neg) 04/17/18 Range/Units 05:19 WBC (4.8-10.8) K/uL RBC (4.2-5.4) M/uL Hgb (12.0-16.0) g/dL Hct (37-47) % MCV (80-100) fL MCH (25-34) pg MCHC (32-36) g/dL RDW Std Deviation (36.4-46.3) fL RDW Coeff of Lázaro (11.5-14.5) % Plt Count (130-400) K/uL MPV (7.4-10.4) fL Immature Gran % (Auto) % Neut % (Auto) % Lymph % (Auto) % Hale % (Auto) % Eos % (Auto) % Baso % (Auto) % Immature Gran # (Auto) (0.00-0.02) K/uL Neut # (Auto) (1.4-6.5) K/uL Lymph # (Auto) (1.2-3.4) K/uL Hale # (Auto) (0.11-0.59) K/uL Eos # (Auto) (0-0.5) K/uL Baso # (Auto) (0-0.2) K/uL PT 10.8 (9.0-12.0) Seconds INR 1.1 (0.9-1.1) Sodium (136-145) mmol/L Potassium (3.5-5.1) mmol/L Chloride (98-107) mmol/L Carbon Dioxide (21-32) mmol/L Anion Gap (3-11) BUN (7-18) mg/dl Creatinine (0.6-1.2) mg/dl Est Cr Clr Drug Dosing ml/min Est GFR ( Amer) Est GFR (Non-Af Amer) BUN/Creatinine Ratio (10-20) Glucose (70-99) mg/dl Calcium (8.5-10.1) mg/dl Phosphorus (2.5-4.9) mg/dl Magnesium (1.8-2.4) mg/dl Total Bilirubin (0.2-1) mg/dl AST (15-37) U/L ALT (12-78) U/L Alkaline Phosphatase (45-117) U/L Troponin I (0-0.045) ng/ml NT-Pro-B Natriuret Pep (0-1800) pg/ml Total Protein (6.4-8.2) gm/dl Albumin (3.4-5.0) gm/dl Globulin (2.5-4.0) gm/dl Albumin/Globulin Ratio (0.9-2) Lipase (73-393) U/L TSH (0.300-4.500) uIu/ml Urine Color Urine Appearance (Clear) Urine pH (4.5-7.5) Ur Specific Bayard (1.000-1.030) Urine Protein (Negative) Urine Glucose (UA) (Negative) Urine Ketones (Negative) Urine Blood (Negative) Urine Nitrite (Negative) Urine Bilirubin (Negative) Urine Urobilinogen (Negative) Ur Leukocyte Esterase (Negative) Urine WBC (Auto) (0-5) /hpf Urine RBC (Auto) (0-4) /hpf U Hyaline Cast (Auto) (0-5) /lpf U Epithel Cells (Auto) (0-5) /lpf Urine Bacteria (Auto) (Negative) Ethyl Alcohol mg/dL (0-3) mg/dl Influenza Type A (PCR) (Neg) Influenza Type B (PCR) (Neg) Imaging Data Radiologist's Impression: Radiology results as stated below per my review and the radiologist's interpretation: SINGLE VIEW CHEST CLINICAL HISTORY: Atypical chest pain. FINDINGS: An AP, portable, upright chest radiograph is compared to study dated 01/29/2018. The examination is degraded by portable technique and patient rotation. The cardiomediastinal silhouette is unremarkable, noting atherosclerotic calcification of the thoracic aorta. The mitral annulus is densely calcified. A calcified granuloma is noted at the right lung base. Chronic interstitial thickening is similar to previous. No airspace consolidation or large pleural effusion is identified. No pneumothorax is seen. The skeletal structures are osteopenic. There are healed right-sided rib fractures. Cholecystectomy clips are identified in the right upper quadrant. IMPRESSION: No active disease in the chest. Electronically signed by: Miguel Mann M.D. 04/16/2018 5:30 PM ECG Data Attestation: I personally reviewed and interpreted this ECG as follows: Indication: weakness Rate (beats per minute): 79 Rhythm: normal sinus Findings: + other (normal axis); no nonspecific-ST abn (laterally) and no acute ischemic change Comparison ECG Date: from (01/29/18) Change: no significant change Blood Pressure Blood Pressure Findings: Normal blood pressure Blood Pressure Disposition: did not require urgent referral MDM Narrative The patient is a pleasant 82-year-old woman with a past medical history of anxiety and depression, CKD stage III, hypothyroidism who presents emergency department with generalized weakness over the past several days per hpi. On arrival the patient is fatigued appearing but no acute distress, afebrile stable vital signs. Patient appears clinically dry. She has a scant intermittent wheeze but lungs are otherwise clear. She is neuro intact. EKG similar to prior without acute ischemia. Chest x-ray negative. WBC, H/H, platelets within normal limits. Chemistry without acidosis. BUN 20 consistent with the patient's clinically dry appearance. Electrolytes unremarkable. Troponin negative in the setting of days of symptoms. UA with 1+ ketones again consistent with the patient's dehydration. Additionally with LE 2+ and 10-30 WBCs suggestive of UTI. Given afebrile without leukocytosis we will treat for uncomplicated UTI with Keflex. Patient feeling improved after IV fluid hydration however still feeling weak and unsteady and does not feel like she could go home. Given the patient's workup is otherwise reassuring admission is not necessarily required. However will attempt rehab placement if possible. Patient agreeable with rehab or admission. Rehab placement not possible from ED / insurance. Case d/w Dr. Fermin, [facility] hospitalist, who will evaluate the patient for admission. Impression & Plan Acute UTI (urinary tract infection), Generalized weakness Discharge Plan Visit Data *Final* Discharge Date/Time: 04/16/18 21:55 Chief Complaint: Illness ED Provider: John Ornelas Discharge Problem: Acute UTI (urinary tract infection), Generalized weakness Patient Disposition: Admitted As Inpatient Discharge Instructions Interventions: ED Discharge Assessment Last Done: 04/16/18 21:55 The scribe's documentation has been prepared under my direction and personally reviewed by me in its entirety. I confirm that the note above accurately reflects all work, treatment, procedures, and medical decision making performed by me.
[2018-04-16] MEDS ORDERED: cephALEXin 250 MG CAP PO ONE (20:24)
--- NOTE | 2018-04-16 21:34 | History & Physical Report ---
Date of Service April 16, 2018 Assessment & Plan (1) Generalized weakness: Some signs of clinical dehydration with ketonuria and hemoconcentration. Asymptomatic pyuria, related specimen no sepsis hypertension, slightly elevated secondary to patient agitation hypothyroidism, euthyroid as of today's TSH anxiety/mood disorder, at baseline hx HCV as per records Past tobacco/alcohol abuse as per records OBS GMF IVF follow urine cultures, hold off on antibiotics for now PT OT eval DT precautions Social service RE discharge planning DNR Attempted to contact patient's son Mr. Silvestre Ram thru [phone]. No answer. Will reattempt to contact in a.m. to discuss plan of care for patient. History of Present Illness Chief Complaint: Generalized weakness Primary Care Provider: Cesar Parra History obtained from patient and records. Medical history significant hypertension, hypothyroidism, anxiety/mood disorder , hx HCV, Past tobacco/alcohol abuse as per records. Recent confinement January 2018 for acute bronchitis. Few days history of worsening generalized weakness. Usual shortness of breath on exertion. Denies chest pain. Denies abdominal pain, dysuria, diarrhea. No fever, no chills. Usual depression denies suicidality. Keflex given at the ER for possible UTI. Allergies Allergy/AdvReac Type Severity Reaction Status Date / Time No Known Allergies Allergy Unknown Verified 04/16/18 17:47 Home Medications Home Medications Medication Instructions Recorded Confirmed Type amlodipine 10 mg PO DAILY 01/29/18 04/16/18 History aspirin [Aspir-81] 81 mg PO DAILY 01/29/18 04/16/18 History buspirone 5 mg PO BID 01/29/18 04/16/18 History celecoxib 100 mg PO BID 01/29/18 04/16/18 History cholecalciferol (vitamin D3) 1,000 unit PO DAILY 01/29/18 04/16/18 History [Vitamin D3] duloxetine 20 mg PO DAILY 01/29/18 04/16/18 History duloxetine 60 mg PO DAILY 01/29/18 04/16/18 History folic acid 1 mg PO DAILY 01/29/18 04/16/18 History levothyroxine 50 mg PO DAILY 01/29/18 04/16/18 History olanzapine [Zyprexa] 15 mg PO HS 01/29/18 04/16/18 History trazodone 50 mg PO HS 01/29/18 04/16/18 History levofloxacin [Levaquin] 750 mg PO Q48H #2 tab 01/31/18 04/16/18 Rx Past Med/Surg History Medical History HTN (hypertension) (Chronic) Chronic hepatitis C (Chronic) ANÍBAL (generalized anxiety disorder) (Chronic) MDD (major depressive disorder) (Chronic) CKD (chronic kidney disease), stage III (Chronic) Hypothyroidism (Chronic) History of alcohol abuse (Resolved) Acute bronchitis Surgical History History of appendectomy (Resolved) Hx of cholecystectomy (Resolved) Family History Other Cancer Social History marital status: / Current Living Situation: Family Current Living Situation Comment: son Other Information That Helps Us Care for You: No Feels Safe at Home: Yes Safety Concerns: Feels Safe At This Time Smoking Status: Former smoker Cigarettes per Day: quit 25 years ago Hx Alcohol Use: Yes Alcohol type: beer Alcohol Intake Frequency: holidays/ special occasions only Hx Substance Use: No Beliefs That Will Affect Care: None Communication Ability: Effective Review of Systems As per HPI, all 10 systems reviewed, all other ROS negative Physical Exam 2 Vital Signs (Past 24 Hours): Last Vital Signs Temp 37.4 C 04/16/18 16:48 Pulse 97 H 04/16/18 20:48 Resp 18 04/16/18 20:48 BP 152/77 H 04/16/18 20:48 Pulse Ox 98 04/16/18 20:48 Physical Exam: GENERAL: uncomfortable, anxious, hard of hearing, no respiratory distress SKIN: Normal color, warm HEENT: Orr palpebral conjunctivae, no ptosis, dry buccal mucosa NECK : Supple, short, no tenderness CHEST : Decreased breath sounds, no tenderness HEART : RRR, no obvious murmurs ABDOMEN: Some distention, nontender EXTREMITIES : No LE swelling/tenderness, no other conspicuous deformities noted NEUROLOGIC : Coherent, no facial asymmetry, no other gross focality except for hearing impairment, gait and stance not assessed Results & Data Laboratory Results Laboratory Results WBC 10.29 K/uL (4.8-10.8) 04/16/18 17:13 RBC 4.46 M/uL (4.2-5.4) 04/16/18 17:13 Hgb 14.1 g/dL (12.0-16.0) 04/16/18 17:13 Hct 41.6 % (37-47) 04/16/18 17:13 MCV 93.3 fL (80-100) 04/16/18 17:13 MCH 31.6 pg (25-34) 04/16/18 17:13 MCHC 33.9 g/dL (32-36) 04/16/18 17:13 RDW Std Deviation 48.1 fL (36.4-46.3) H 04/16/18 17:13 RDW Coeff of Lázaro 14.3 % (11.5-14.5) 04/16/18 17:13 Plt Count 256 K/uL (130-400) 04/16/18 17:13 MPV 10.9 fL (7.4-10.4) H 04/16/18 17:13 Immature Gran % (Auto) 0.2 % 04/16/18 17:13 Neut % (Auto) 67.8 % 04/16/18 17:13 Lymph % (Auto) 23.6 % 04/16/18 17:13 Greer % (Auto) 6.2 % 04/16/18 17:13 Eos % (Auto) 1.8 % 04/16/18 17:13 Baso % (Auto) 0.4 % 04/16/18 17:13 Immature Gran # (Auto) 0.02 K/uL (0.00-0.02) 04/16/18 17:13 Neut # (Auto) 6.97 K/uL (1.4-6.5) H 04/16/18 17:13 Lymph # (Auto) 2.43 K/uL (1.2-3.4) 04/16/18 17:13 Greer # (Auto) 0.64 K/uL (0.11-0.59) H 04/16/18 17:13 Eos # (Auto) 0.19 K/uL (0-0.5) 04/16/18 17:13 Baso # (Auto) 0.04 K/uL (0-0.2) 04/16/18 17:13 Sodium 138 mmol/L (136-145) 04/16/18 17:13 Potassium 3.5 mmol/L (3.5-5.1) 04/16/18 17:13 Chloride 103 mmol/L (98-107) 04/16/18 17:13 Carbon Dioxide 25 mmol/L (21-32) 04/16/18 17:13 Anion Gap 10.0 (3-11) 04/16/18 17:13 BUN 20 mg/dl (7-18) H 04/16/18 17:13 Creatinine 1.11 mg/dl (0.6-1.2) 04/16/18 17:13 Est Cr Clr Drug Dosing 29.8 ml/min 04/16/18 17:13 Est GFR ( Amer) 52.8 04/16/18 17:13 Est GFR (Non-Af Amer) 45.6 04/16/18 17:13 BUN/Creatinine Ratio 18.0 (10-20) 04/16/18 17:13 Glucose 96 mg/dl (70-99) 04/16/18 17:13 Calcium 9.5 mg/dl (8.5-10.1) 04/16/18 17:13 Phosphorus 3.2 mg/dl (2.5-4.9) 04/16/18 17:13 Magnesium 2.0 mg/dl (1.8-2.4) 04/16/18 17:13 Total Bilirubin 0.6 mg/dl (0.2-1) 04/16/18 17:13 AST 36 U/L (15-37) 04/16/18 17:13 ALT 41 U/L (12-78) 04/16/18 17:13 Alkaline Phosphatase 92 U/L (45-117) 04/16/18 17:13 Troponin I < 0.015 ng/ml (0-0.045) 04/16/18 17:13 NT-Pro-B Natriuret Pep 74 pg/ml (0-1800) 04/16/18 17:13 Total Protein 8.1 gm/dl (6.4-8.2) 04/16/18 17:13 Albumin 3.8 gm/dl (3.4-5.0) 04/16/18 17:13 Globulin 4.3 gm/dl (2.5-4.0) H 04/16/18 17:13 Albumin/Globulin Ratio 0.9 (0.9-2) 04/16/18 17:13 Lipase 163 U/L (73-393) 04/16/18 17:13 TSH 1.350 uIu/ml (0.300-4.500) 04/16/18 17:13 Urine Color Yellow 04/16/18 19:39 Urine Appearance Clear (Clear) 04/16/18 19:39 Urine pH 7.0 (4.5-7.5) 04/16/18 19:39 Ur Specific [place] 1.011 (1.000-1.030) 04/16/18 19:39 Urine Protein Negative (Negative) 04/16/18 19:39 Urine Glucose (UA) Negative (Negative) 04/16/18 19:39 Urine Ketones 1+ (Negative) H 04/16/18 19:39 Urine Blood Negative (Negative) 04/16/18 19:39 Urine Nitrite Negative (Negative) 04/16/18 19:39 Urine Bilirubin Negative (Negative) 04/16/18 19:39 Urine Urobilinogen Negative (Negative) 04/16/18 19:39 Ur Leukocyte Esterase 2+ (Negative) H 04/16/18 19:39 Urine WBC (Auto) 10-30 /hpf (0-5) H 04/16/18 19:39 Urine RBC (Auto) 0-4 /hpf (0-4) 04/16/18 19:39 U Hyaline Cast (Auto) 1-5 /lpf (0-5) 04/16/18 19:39 U Epithel Cells (Auto) 10-20 /lpf (0-5) H 04/16/18 19:39 Urine Bacteria (Auto) Negative (Negative) 04/16/18 19:39 Ethyl Alcohol mg/dL < 3.0 mg/dl (0-3) 04/16/18 17:34 Influenza Type A (PCR) Neg for Influ A (Neg) 04/16/18 17:30 Influenza Type B (PCR) Neg for Influ B (Neg) 04/16/18 17:30 Diagnostic Findings Chest x-ray: No active disease
[2018-04-16] MEDS ORDERED: PROCHLORPERAZINE 5 MG in SYRINGE 4 ML IV PRN (22:19)
[2018-04-16] MEDS ORDERED: ACETAMINOPHEN 325 MG TAB PO PRN (22:19)
[2018-04-16] MEDS: OLANZapine 5 MG TABLET PO SCH (23:29)
[2018-04-17] MEDS ORDERED: PNEUMOCOCCAL ADMINISTRATION CHARGE ONE (00:30)
[2018-04-17] MEDS ORDERED: PNEUMOCOCCAL POLYSACCHARIDES 25 MCG/0.5 ML VIAL/SYR IM ONE (00:30)
[2018-04-17] MEDS ORDERED: INFLUENZA ADMINISTRATION CHARGE ONE (00:30)
[2018-04-17] MEDS ORDERED: INFLUENZA VACCINE HIGH DOSE 65+ 0.5 ML SYR IM ONE (00:30)
[2018-04-17 05:44] LABS: Basophils # (auto) 0.03 K/uL (0-0.2); Basophils % (auto) 0.4 %; Eosinophils # (auto) 0.27 K/uL (0-0.5); Eosinophils % (auto) 3.4 %; Hematocrit (blood only) 37.5 % (37-47); Hemoglobin 12.5 g/dL (12.0-16.0); Immature Granulocytes # (auto) 0.02 K/uL (0.00-0.02); Immature Granulocytes % (auto) 0.2 %; Lymphocytes % (auto) 34.8 %; Mean Corpuscular Hgb Conc 33.3 g/dL (32-36); Mean Corpuscular Volume 93.3 fL (80-100); Mean Platelet Volume 10.7 fL (7.4-10.4); Monocytes # (auto) 0.72 K/uL (0.11-0.59); Monocytes % (auto) 8.9 %; Neutrophils # (auto) 4.21 K/uL (1.4-6.5); Neutrophils % (auto) 52.3 %; Platelet Count 220 K/uL (130-400); RDW Coefficient of Variation 14.3 % (11.5-14.5); RDW Standard Deviation 48.5 fL (36.4-46.3); Red Blood Count 4.02 M/uL (4.2-5.4); White Blood Count 8.05 K/uL (4.8-10.8)
[2018-04-17 06:08] LABS: INR 1.1 (0.9-1.1); Prothrombin Time 10.8 Seconds (9.0-12.0)
[2018-04-17] MEDS: LEVOTHYROXINE SODIUM 50 MCG TABLET PO SCH (07:54)
[2018-04-17] MEDS: ASPIRIN 81 MG ECTAB PO SCH (07:55)
[2018-04-17] MEDS: FOLIC ACID 1 MG TAB PO SCH (07:55)
[2018-04-17] MEDS: DULOXETINE HCL 20 MG CAP PO SCH (07:55)
[2018-04-17] MEDS: AMLODIPINE BESYLATE 5 MG TAB PO SCH (07:55)
[2018-04-17] MEDS: THIAMINE HCL 100 MG in SYRINGE 9 ML IV SCH (07:57)
[2018-04-17] MEDS ORDERED: DULOXETINE HCL 60 MG CAP PO SCH (09:00)
[2018-04-17] MEDS ORDERED: FOLIC ACID 1 MG TAB PO SCH (09:00)
[2018-04-17] MEDS: MULTIVITAMIN TAB PO SCH (10:06)
[2018-04-17] MEDS: ENOXAPARIN INJ 30 MG/0.3 ML SYR SQ SCH (10:06)
--- NOTE | 2018-04-17 13:33 | Hospitalist Progress Note ---
Date of Service April 17, 2018 Assessment & Plan (1) Generalized weakness: Continue PT/OT fall precaution Waiting for placement to rehab (2) HTN (hypertension): BP stable continue amlodipine (3) CKD (chronic kidney disease), stage III: Creatinine stable (4) Hypothyroidism: Continue levothyroxine Abnormal UA UA only positive for Leukocytes denies any urinary symptoms Afebrile and no leukocytosis Received 1 dose of Keflex in the ER Will hold for any additional abx at this time Urine cx pending DVT px on Lovenox CODE STATUS DNR Subjective Pt was seen and examined Lying in bed with no distress Pt said that she feels fine Her strength improves Denies any urinary symptoms Denies any chest pain, palpitation, dizziness and SOB Physical Exam 2 Vital Signs (Past 24 Hours): Last Vital Signs Temp 36.7 C 04/17/18 07:57 Pulse 58 L 04/17/18 07:57 Resp 16 04/17/18 07:57 BP 101/63 04/17/18 07:57 Pulse Ox 95 04/17/18 07:57 Physical Exam: General- No acute distress Head- atraumatic Eyes- PERRL, EOMI, ENT- oropharynx clear, decrease hearing function Neck- supple, no JVD Lungs- clear to auscultation Heart- regular rhythm Abdomen- normal bowel sounds, soft, nontender Extremities- no calf tenderness Neuro- alert, oriented x 3; PERRL, EOMI; no facial palsy; no dysarthria Skin- warm & dry
[2018-04-17] MEDS: TRAZODONE HCL 50 MG TAB PO SCH (21:21)
[2018-04-17] MEDS: OLANZapine 5 MG TABLET PO SCH (21:22)
[2018-04-18] MEDS: LEVOTHYROXINE SODIUM 50 MCG TABLET PO SCH (06:15)
[2018-04-18] MEDS: AMLODIPINE BESYLATE 5 MG TAB PO SCH (09:09)
[2018-04-18] MEDS: FOLIC ACID 1 MG TAB PO SCH (09:09)
[2018-04-18] MEDS: MULTIVITAMIN TAB PO SCH (09:09)
[2018-04-18] MEDS: DULOXETINE HCL 20 MG CAP PO SCH (09:09)
[2018-04-18] MEDS: ASPIRIN 81 MG ECTAB PO SCH (09:10)
[2018-04-18] MEDS: ENOXAPARIN INJ 30 MG/0.3 ML SYR SQ SCH (09:10)
[2018-04-18] MEDS: THIAMINE HCL 100 MG in SYRINGE 9 ML IV SCH (09:11)
--- NOTE | 2018-04-18 18:39 | Hospitalist Progress Note ---
Date of Service April 18, 2018 Assessment & Plan (1) Generalized weakness: Continue PT/OT fall precaution Waiting for placement to rehab Son OK with Home health with PT/OT if patient does not qualify for inpatient rehab (2) HTN (hypertension): BP stable continue amlodipine Monitor BP (3) CKD (chronic kidney disease), stage III: Creatinine stable (4) Hypothyroidism: Continue levothyroxine Abnormal UA UA only positive for Leukocytes denies any urinary symptoms Afebrile and no leukocytosis Received 1 dose of Keflex in the ER Will hold for any additional abx at this time Urine cx no growth DVT px on Lovenox CODE STATUS DNR Disposition waiting for placement to rehab Can be discharge tomorrow with PT/OT Subjective Pt was seen and examined Lying in bed with no distress Pt said that she feels fine spoke to son over the phone about pt might not qualify for rehab I explained to son that the next option will be home health services with PT/OT Son will be OK with PT/OT if pt does not qualify for inpatient rehab Denies any chest pain, palpitation, dizziness and SOB Physical Exam 2 Vital Signs (Past 24 Hours): Last Vital Signs Temp 37.3 C 04/18/18 15:12 Pulse 78 04/18/18 15:12 Resp 16 04/18/18 15:12 BP 91/53 L 04/18/18 15:12 Pulse Ox 96 04/18/18 15:12 Physical Exam: General- No acute distress Head- atraumatic Eyes- PERRL, EOMI, ENT- oropharynx clear, decrease hearing function Neck- supple, no JVD Lungs- clear to auscultation Heart- regular rhythm Abdomen- normal bowel sounds, soft, nontender Extremities- no calf tenderness Neuro- alert, oriented x 3; PERRL, EOMI; no facial palsy; no dysarthria Skin- warm & dry
[2018-04-18] MEDS: TRAZODONE HCL 50 MG TAB PO SCH (20:21)
[2018-04-18] MEDS: OLANZapine 5 MG TABLET PO SCH (20:21)
[2018-04-19 06:32] LABS: Hematocrit (blood only) 40.3 % (37-47); Hemoglobin 13.5 g/dL (12.0-16.0); Mean Corpuscular Hgb Conc 33.5 g/dL (32-36); Mean Corpuscular Volume 93.3 fL (80-100); Mean Platelet Volume 10.7 fL (7.4-10.4); Platelet Count 222 K/uL (130-400); RDW Coefficient of Variation 14.4 % (11.5-14.5); RDW Standard Deviation 48.1 fL (36.4-46.3); Red Blood Count 4.32 M/uL (4.2-5.4)
[2018-04-19] MEDS: LEVOTHYROXINE SODIUM 50 MCG TABLET PO SCH (06:41)
[2018-04-19 07:02] LABS: Creatinine Clr Calc Pharmacy 38.5 ml/min; Est GFR (African American) 76.2; Est GFR (Non-African American) 65.7
[2018-04-19] MEDS: ASPIRIN 81 MG ECTAB PO SCH (08:25)
[2018-04-19] MEDS: AMLODIPINE BESYLATE 5 MG TAB PO SCH (08:25)
[2018-04-19] MEDS: MULTIVITAMIN TAB PO SCH (08:28)
[2018-04-19] MEDS: ENOXAPARIN INJ 30 MG/0.3 ML SYR SQ SCH (08:29)
[2018-04-19] MEDS: DULOXETINE HCL 20 MG CAP PO SCH (08:29)
[2018-04-19] MEDS: FOLIC ACID 1 MG TAB PO SCH (08:30)
[2018-04-19] MEDS: THIAMINE HCL 100 MG in SYRINGE 9 ML IV SCH (08:30)
--- NOTE | 2018-04-19 13:02 | Hospitalist Progress Note ---
Date of Service April 19, 2018 Assessment & Plan (1) Generalized weakness: symptoms has resolved appreciate PT/OT eval pt refuses to go to SNF walking in room independently wants to return home does not want Home Health (2) HTN (hypertension): BP stable continue amlodipine (3) CKD (chronic kidney disease), stage III: Creatinine stable (4) Hypothyroidism: Continue levothyroxine Abnormal UA UA only positive for Leukocytes denies any urinary symptoms Afebrile and no leukocytosis Received 1 dose of Keflex in the ER Will hold for any additional abx at this time Urine cx no growth DVT px on Lovenox DISPOSITION : discharge home today CODE STATUS DNR Disposition waiting for placement to rehab Can be discharge tomorrow with PT/OT Subjective feels fine denies of any weakness or fatigue ambulating independently in room no fever or chills very eager to be discharged home Physical Exam 2 Vital Signs (Past 24 Hours): Last Vital Signs Temp 37.4 C 04/18/18 23:35 Pulse 102 H 04/19/18 08:25 Resp 16 04/19/18 08:25 BP 157/87 H 04/19/18 08:25 Pulse Ox 96 04/19/18 08:25 Physical Exam: GENERAL: No sign of distress, HEENT: Sclera nonicteric, pink-purple bilateral equal reactive to light extraocular muscle intact Normal oral mucosa, neck: No JVD, no thyromegaly, trachea midline Lungs: Clear to auscultate, no wheeze or rales Cardiovascular: Regular S1 and S2, no murmur or gallop, no JVD, no lower extremity edema Abdomen: Soft, nontender, bowel sounds active, no hepatosplenomegaly Extremities: No rash or deformity, normal joint, Neuro: No focal neurological deficit, no dysarthria, no facial droop Psych: Alert awake oriented x3: Euthymic Skin: No rash LYMPH NODES: No cervical lymphadenopathy
--- NOTE | 2018-04-20 14:23 | Discharge Summary ---
Date of Service April 20, 2018 Admission HPI Per Admitting Provider History obtained from patient and records. Medical history significant hypertension, hypothyroidism, anxiety/mood disorder , hx HCV, Past tobacco/alcohol abuse as per records. Recent confinement January 2018 for acute bronchitis. Few days history of worsening generalized weakness. Usual shortness of breath on exertion. Denies chest pain. Denies abdominal pain, dysuria, diarrhea. No fever, no chills. Usual depression denies suicidality. Keflex given at the ER for possible UTI. Principal Diagnosis GENERALIZED WEAKNESS Discharge Exam GENERAL: No sign of distress, HEENT: Sclera nonicteric, pink-purple bilateral equal reactive to light extraocular muscle intact Normal oral mucosa, neck: No JVD, no thyromegaly, trachea midline Lungs: Clear to auscultate, no wheeze or rales Cardiovascular: Regular S1 and S2, no murmur or gallop, no JVD, no lower extremity edema Abdomen: Soft, nontender, bowel sounds active, no hepatosplenomegaly Extremities: No rash or deformity, normal joint, Neuro: No focal neurological deficit, no dysarthria, no facial droop Psych: Alert awake oriented x3: Euthymic Skin: No rash LYMPH NODES: No cervical lymphadenopathy Discharge Data Allergies Allergy/AdvReac Type Severity Reaction Status Date / Time No Known Allergies Allergy Unknown Verified 04/16/18 17:47 Consultations 04/16/18 20:32 ED Decision to Admit Stat 04/16/18 22:19 Consult Case Management - Discharge Planning Routine Hospital Course (1) Generalized weakness: symptoms has resolved appreciate PT/OT eval pt refuses to go to SNF walking in room independently wants to return home does not want Home Health (2) HTN (hypertension): BP stable continue amlodipine (3) CKD (chronic kidney disease), stage III: Creatinine stable (4) Hypothyroidism: Continue levothyroxine Abnormal UA UA only positive for Leukocytes denies any urinary symptoms Afebrile and no leukocytosis Received 1 dose of Keflex in the ER Will hold for any additional abx at this time Urine cx no growth DVT px on Lovenox DISPOSITION : discharge home today CODE STATUS DNR Disposition waiting for placement to rehab Can be discharge tomorrow with PT/OT Total Time Total Time Spent Total Time Spent (In Minutes): 35 mins Total Time Includes: Discharge Planning and Medication Reconciliation Discharge Plan Discharge Items Patient Disposition: Home - Self-Care Reason For Visit: WEAKNESS Discharge Diagnosis: Weakness/ Discharge Goals: Decrease discomfort, Improve disease control, Improve function and Increase independence Activity: Resume your previous activity Non-emergency contact: Primary Care Provider Call non-emergency contact if: you have any medication questions Follow-up/Referrals: Cesar Santoro [Primary Care Provider] - 04/21/18 12:45 pm Diet: Heart Healthy Addtl Provider Instructions: Follow up with your primary care provider within 1 week Continue physical and occupational therapy Fall precaution DR SANTORO FOLLOW UP FOR ON Tuesday04/21/18 YOUR 05/02/18 APPOINTMENT IS CANCELLED Prescriptions: Continue buspirone 5 mg tablet 5 mg PO BID RF: 0 trazodone 50 mg tablet 50 mg PO HS RF: 0 amlodipine 10 mg tablet 10 mg PO DAILY RF: 0 levothyroxine 50 mcg tablet 50 mg PO DAILY RF: 0 folic acid 1 mg tablet 1 mg PO DAILY RF: 0 duloxetine 20 mg capsule,delayed release(DR/EC) 20 mg PO DAILY RF: 0 duloxetine 60 mg capsule,delayed release(DR/EC) 60 mg PO DAILY RF: 0 aspirin [Aspir-81] 81 mg Tablet,Delayed Release (Dr/Ec) 81 mg PO DAILY RF: 0 celecoxib 100 mg capsule 100 mg PO BID RF: 0 cholecalciferol (vitamin D3) [Vitamin D3] 1,000 unit Tablet 1,000 unit PO DAILY RF: 0 olanzapine [Zyprexa] 15 mg Tablet 15 mg PO HS RF: 0 Discontinued levofloxacin [Levaquin] 750 mg tablet 750 mg PO Q48H Qty: 2 RF: 0 Stand-Alone Forms: [facility] Discharge Orders: Discharge Order (Routine); Ordered 04/19/18 Ordered By: Leah Cortez Admission Data Admit Date/Time: 04/16/18 21:31 Attending Provider: Leah Cortez Admit Provider: Vonnie Tse Primary Care Provider: Cesar Santoro Other Providers: Margarito Fermin Wilkerson Service: Medical Other Interventions: Discharge Summary Assessment (RN) Last Done: 04/19/18 13:24 DC Date/Time DO NOT enter until pt leaves facility: 04/19/18 14:17
== END 2018-04-19 14:17 | disposition home or self-care (01) ==
LOC: 4E 17:04 → ED 17:04 → SUATTDRO 21:31 → 4E 21:55

== ENCOUNTER 2018-04-23 16:55 | Inpatient (IN) ==
[2018-04-23] MEDS ORDERED: ONDANSETRON INJ 2 MG/ML 2 ML VIAL IV STA (17:09)
[2018-04-23] MEDS ORDERED: SODIUM CHLORIDE 0.9% 1000ML 1,000 ML IV SCH (17:15)
[2018-04-23 17:44] LABS: Basophils # (auto) 0.02 K/uL (0-0.2); Basophils % (auto) 0.2 %; Eosinophils # (auto) 0.04 K/uL (0-0.5); Eosinophils % (auto) 0.4 %; Hemoglobin 14.2 g/dL (12.0-16.0); Immature Granulocytes # (auto) 0.04 K/uL (0.00-0.02); Immature Granulocytes % (auto) 0.4 %; Lymphocytes # (auto) 1.91 K/uL (1.2-3.4); Lymphocytes % (auto) 17.9 %; Mean Corpuscular Hgb Conc 34.6 g/dL (32-36); Mean Corpuscular Volume 90.7 fL (80-100); Mean Platelet Volume 10.6 fL (7.4-10.4); Monocytes # (auto) 0.81 K/uL (0.11-0.59); Monocytes % (auto) 7.6 %; Neutrophils # (auto) 7.86 K/uL (1.4-6.5); Neutrophils % (auto) 73.5 %; Platelet Count 285 K/uL (130-400); RDW Coefficient of Variation 14.3 % (11.5-14.5); RDW Standard Deviation 46.3 fL (36.4-46.3); Red Blood Count 4.52 M/uL (4.2-5.4); White Blood Count 10.68 K/uL (4.8-10.8)
[2018-04-23 18:03] LABS: BUN Creatinine Ratio 18.9 (10-20); Calcium 8.8 mg/dl (8.5-10.1); Creatinine Clr Calc Pharmacy 26.8 ml/min; Est GFR (Non-African American) 42.3; Potassium 3.6 mmol/L (3.5-5.1)
[2018-04-23 18:06] LABS: Bilirubin,Total 0.7 mg/dl (0.2-1); Globulin 3.9 gm/dl (2.5-4.0); Total Protein 7.9 gm/dl (6.4-8.2)
--- NOTE | 2018-04-23 18:33 | Emergency Department Note ---
Entered by Mor Brink acting as a scribe for History of Present Illness General Chief complaint: GI Assessment Stated complaint: AB PAIN, DIARRHEA, NAUSEA Time Seen by Provider: 04/23/18 16:58 Source: patient History of Present Illness Onset (ago): day(s) 4 Location: abdomen Pain Consistency: + other (persistent) Quality: + other (diarrhea) Associated symptoms: + other (Positive for nausea, vomiting, and abdominal pain. ) The patient is an 82 year old female who presents to the emergency department with complaints of persistent diarrhea beginning four days ago. The patient states that she has been having around ten episodes of diarrhea a day for the last four days. She notes that her diarrhea has been becoming water. She also complains of nausea, vomiting, and intermittent abdominal pain, but she denies any current pain. She reports that she had an episode of vomiting three days ago. The patient denies any recent antibiotic use, recent travel, bad foods, and known sick contacts. She states that she does not take a blood thinner. She notes that she has a history of hypertension but does not have a history of diabetes, cancer, heart attacks, and strokes. Home Medications Home Medications Medication Instructions Recorded Confirmed Type amlodipine 10 mg PO DAILY 01/29/18 04/23/18 History aspirin [Aspir-81] 81 mg PO DAILY 01/29/18 04/23/18 History buspirone 5 mg PO BID 01/29/18 04/23/18 History celecoxib 100 mg PO BID 01/29/18 04/23/18 History cholecalciferol (vitamin D3) 1,000 unit PO DAILY 01/29/18 04/23/18 History [Vitamin D3] duloxetine 20 mg PO DAILY 01/29/18 04/23/18 History duloxetine 60 mg PO DAILY 01/29/18 04/23/18 History folic acid 1 mg PO DAILY 01/29/18 04/23/18 History levothyroxine 50 mg PO DAILY 01/29/18 04/23/18 History olanzapine [Zyprexa] 15 mg PO HS 01/29/18 04/23/18 History trazodone 1 dose PO UD 04/23/18 04/23/18 History vancomycin 125 mg PO Q6H 10 Days #40 cap 04/23/18 Rx Allergies Allergy/AdvReac Type Severity Reaction Status Date / Time No Known Allergies Allergy Unknown Verified 04/23/18 17:36 Past Med/Surg History Social History marital status: / Current Living Situation: Family Current Living Situation Comment: son Feels Safe at Home: Yes Smoking Status: Never smoker Cigarettes per Day: quit 25 years ago Hx Alcohol Use: Yes Alcohol type: beer Alcohol Intake Frequency: holidays/ special occasions only Hx Substance Use: No Beliefs That Will Affect Care: None Preferred Language: Icelandic Review of Systems See HPI for pertinent positives & negatives. and A total of 10 systems reviewed and were otherwise negative Physical Exam Vital Signs Vital Signs - 24 hr 04/23/18 17:03 Temperature 37 C Temperature Source Oral Sepsis Recent Fever Within 48 Hours No Sepsis New/Unexplained Change in Mental Status No Sepsis Action Taken by Nursing No Action Required Pulse Rate 95 H Pulse Rhythm Regular Pulse Strength Normal Respiratory Rate 19 Respiratory Effort / Characteristics Non-Labored Respiratory Depth Normal Respiratory Pattern Regular Blood Pressure 139/85 Blood Pressure Mean 103 Blood Pressure Position Lying Pulse Oximetry 92 Oxygen Delivery Method Room Air CONSTITUTIONAL/VITAL SIGNS: Reviewed / noted above. GENERAL: Non-toxic in appearance. INTEGUMENTARY: Warm, dry, and [place]. HEAD: Normocephalic. EYES: without scleral icterus or trauma. ENT/OROPHARYNX: clear. Smell of ketones on breath. Tongue slightly dry. LYMPHADENOPATHY/NECK: Is supple without lymphadenopathy or meningismus. RESPIRATORY: Lungs clear and equal. CARDIOVASCULAR: Regular rate and rhythm. GI/ABDOMEN: Soft and nontender. No organomegaly or pulsatile mass. No rebound or guarding. Normal bowel sounds. EXTREMITIES: Warm and well perfused. BACK: No CVA tenderness. NEUROLOGICAL: Intact without focal deficits. PSYCHIATRIC: normal affect. MUSCULOSKELETAL: Normally developed with good muscle tone. Course 1701: Past medical records reviewed. The patient was evaluated in room C12, and a complete history and physical examination were performed. 183: I reevaluated and updated the patient. She states that she would like to be evaluated and would not like to leave. 1904: Upon reevaluation, the patient is stable. I discussed the results and treatment plan with the patient. She verbalizes understanding and agreement. I discussed the patient's case with [facility], Niki SAWYER. The patient will be evaluated for further management and care. Consultations Consultation #1: I reviewed the patient's case with [facility], Niki SAWYER. She will evaluate the patient for further management. Time: 19:05 Administered Medications Discontinued Medications Sodium Chloride (Nss 1000ml) 1,000 mls @ 999 mls/hr IV .Q1H1M HELADIO Stop: 04/23/18 18:15 Last Infusion: 04/23/18 18:59 Dose: 0 mls/hr Admin: 04/23/18 17:51 Dose: 999 mls/hr Ondansetron HCl (Zofran) 4 mg IV NOW STA Stop: 04/23/18 17:10 Last Admin: 04/23/18 17:51 Dose: 4 mg Medical Decision Making Differential Diagnosis Differential diagnosis: Etiologies such as gastroenteritis, food borne illness, infections, appendicitis , diverticulitis, inflammatory bowel disease, obstruction, GI bleed, biliary pathology, cardiac process, intracranial process, as well as others were entertained. Medical Records Attestation: I reviewed the patient's medical records. Home Medications Current Medication List: was personally reviewed by me Laboratory Data Attestation: I reviewed the patient's lab results. Result diagrams: 04/23/18 17:35 04/23/18 17:35 Lab Results 04/23/18 04/23/18 04/23/18 Range/Units 17:20 17:35 17:35 WBC 10.68 (4.8-10.8) K/uL RBC 4.52 (4.2-5.4) M/uL Hgb 14.2 (12.0-16.0) g/dL Hct 41.0 (37-47) % MCV 90.7 (80-100) fL MCH 31.4 (25-34) pg MCHC 34.6 (32-36) g/dL RDW Std Deviation 46.3 (36.4-46.3) fL RDW Coeff of Lázaro 14.3 (11.5-14.5) % Plt Count 285 (130-400) K/uL MPV 10.6 H (7.4-10.4) fL Immature Gran % (Auto) 0.4 % Neut % (Auto) 73.5 % Lymph % (Auto) 17.9 % [place] % (Auto) 7.6 % Eos % (Auto) 0.4 % Baso % (Auto) 0.2 % Immature Gran # (Auto) 0.04 H (0.00-0.02) K/uL Neut # (Auto) 7.86 H (1.4-6.5) K/uL Lymph # (Auto) 1.91 (1.2-3.4) K/uL [place] # (Auto) 0.81 H (0.11-0.59) K/uL Eos # (Auto) 0.04 (0-0.5) K/uL Baso # (Auto) 0.02 (0-0.2) K/uL Sodium 133 L (136-145) mmol/L Potassium 3.6 (3.5-5.1) mmol/L Chloride 102 (98-107) mmol/L Carbon Dioxide 20 L (21-32) mmol/L Anion Gap 11.0 (3-11) BUN 22 H (7-18) mg/dl Creatinine 1.18 (0.6-1.2) mg/dl Est Cr Clr Drug Dosing 26.8 ml/min Est GFR ( Amer) 49.0 Est GFR (Non-Af Amer) 42.3 BUN/Creatinine Ratio 18.9 (10-20) Glucose 105 H (70-99) mg/dl Calcium 8.8 (8.5-10.1) mg/dl Total Bilirubin 0.7 (0.2-1) mg/dl AST 49 H (15-37) U/L ALT 57 (12-78) U/L Alkaline Phosphatase 82 (45-117) U/L Total Protein 7.9 (6.4-8.2) gm/dl Albumin 4.0 (3.4-5.0) gm/dl Globulin 3.9 (2.5-4.0) gm/dl Albumin/Globulin Ratio 1.0 (0.9-2) Stl C. diff Tox B Gene Pos C.diff Toxin B A* (Neg) Blood Pressure Blood Pressure Findings: Elevated blood pressure Blood Pressure Disposition: elevated BP felt to be situational MDM Narrative This is an 82-year-old female who presents to the ED with a chief complaint of watery diarrhea for the past 4 days. She states that she is going anywhere from 10-18 times a day. Associated nausea and one episode of vomiting about 3 days ago. The patient denies any recent antibiotics or recent travel. She denies having any abdominal discomfort at this time but there is occasional abdominal pains with her symptoms. Her vital signs are stable. Physical exam did not reveal any abdominal tenderness. She does appear to be clinically dry with some ketones on her breath and a slightly dry tongue. The patient's laboratory studies including a CBC and chemistry panel were unremarkable. The BUN was 20. C. difficile test was positive. The patient was given IV fluids as well as IV Zofran. She was treated with p.o. vancomycin. She will be discharged on this for 10 days. She did not feel comfortable going home. She does not feel like she can take care of herself. She will be seen by the hospitalist for evaluation. Impression & Plan C. difficile diarrhea Discharge Plan Visit Data Chief Complaint: GI Assessment Stated Complaint: AB PAIN, DIARRHEA, NAUSEA ED Provider: Chencho Garcia Discharge Problem: C. difficile diarrhea Patient Disposition: Being Evaluated by Hospitalist Condition: Good Discharge Instructions [place]/Other Patient Handouts: Clostridium Difficile Toxin Stool Activity Restrictions/Additional Instructions: Vancomycin 4 times daily for 10 days. Follow-up with your doctor for further care and evaluation in 1-2 days. Return to the emergency department for worsening or new symptoms or any concerns. You have been examined and treated today on an emergency basis only. This is not a substitute for, or an effort to provide, complete comprehensive medical care. It is impossible to recognize and treat all injuries or illnesses in a single emergency department visit. It is therefore important that you follow up closely with your doctor. Call as soon as possible for an appointment. Forms Stand Alone Forms: My [facility], Important Visit Information Prescriptions Prescriptions: New vancomycin 125 mg capsule 125 mg PO Q6H 10 Days Qty: 40 RF: 0 No Action buspirone 5 mg tablet 5 mg PO BID RF: 0 amlodipine 10 mg tablet 10 mg PO DAILY RF: 0 levothyroxine 50 mcg tablet 50 mg PO DAILY RF: 0 folic acid 1 mg tablet 1 mg PO DAILY RF: 0 duloxetine 20 mg capsule,delayed release(DR/EC) 20 mg PO DAILY RF: 0 duloxetine 60 mg capsule,delayed release(DR/EC) 60 mg PO DAILY RF: 0 aspirin [Aspir-81] 81 mg Tablet,Delayed Release (Dr/Ec) 81 mg PO DAILY RF: 0 celecoxib 100 mg capsule 100 mg PO BID RF: 0 cholecalciferol (vitamin D3) [Vitamin D3] 1,000 unit Tablet 1,000 unit PO DAILY RF: 0 olanzapine [Zyprexa] 15 mg Tablet 15 mg PO HS RF: 0 trazodone 100 mg tablet 1 dose PO UD RF: 0 Referrals Referrals: Cesar Parra [Primary Care Provider] - The scribe's documentation has been prepared under my direction and personally reviewed by me in its entirety. I confirm that the note above accurately reflects all work, treatment, procedures, and medical decision making performed by me.
[2018-04-23] MEDS ORDERED: ONDANSETRON INJ 2 MG/ML 2 ML VIAL IV PRN (20:50)
[2018-04-23] MEDS ORDERED: ACETAMINOPHEN 325 MG TAB PO PRN (20:50)
--- NOTE | 2018-04-23 21:07 | History and Physical Report ---
DATE OF ADMISSION: 04/23/2018 CHIEF COMPLAINT: Diarrhea, abdominal pain. HISTORY OF PRESENT ILLNESS: This is an 82-year-old female with past medical history significant for hypothyroidism, chronic kidney disease stage III, depression, alcohol dependence, chronic hepatitis C, general anxiety disorder, hypertension. Presents with several episodes of diarrhea and found to have C. diff in the ER. ER tried to send her home, but patient does not feel safe to go home, so we are called for admission. The patient is currently resting comfortably, hemodynamically stable. She says that she is having multiple episodes of diarrhea since last few days. No blood in the stools, they were brownish color. Poor appetite and vomited once and also having lower abdominal pain, moderate in severity. Denies any fever, chills, no recent antibiotic use. Patient recently was in the hospital for weakness. At that time, there was recommendation for placement, but patient refused and she was ambulating, walking in the room and she was discharged home as she wanted to go home. The patient says at home she lives with her son and she is ambulating okay without any help. Denies any headaches, no earaches, no sore throat, no difficulty swallowing. No chest pain. Says she is always somewhat short of breath, no cough. ALLERGIES: No known drug allergies. PAST MEDICAL HISTORY: As mentioned above. PAST SURGICAL HISTORY: Colonoscopy with biopsy, laparoscopic cholecystectomy. MEDICATIONS: The patient on levothyroxine 50 mcg p.o. daily, Zyprexa 50 mg p.o. at bedtime, Celebrex 100 mg p.o. b.i.d. p.r.n., amlodipine 10 mg p.o. daily, trazodone 100 mg p.o. at bedtime, Cymbalta 80 mg p.o. daily, BuSpar 5 mg p.o. b.i.d., folic acid 1 mg p.o. daily, multivitamin with minerals 1 tablet daily, aspirin 81 mg p.o. daily, vitamin D 1000 units p.o. daily. FAMILY HISTORY: No family history on file. SOCIAL HISTORY: Currently lives with son. Quit smoking in . Alcohol, 1 beer every 2 months. No drug use. REVIEW OF SYMPTOMS: As per HPI. Rest of review of systems negative. PHYSICAL EXAMINATION: GENERAL: The patient is old and frail, not in acute distress. VITAL SIGNS: Temperature 37, respiratory rate 16, pulse 95, blood pressure 150/75, oxygen 95% room air. HEENT: No pallor, no icterus. Pupils equal, round, and reactive to light. NECK: No JVD, no neck masses, no carotid bruit. CARDIOVASCULAR: S1, S2 heard, regular rate and rhythm, no murmur, no gallop. RESPIRATORY SYSTEM: Normal AP diameter. No accessory muscle use. No wheezing, no crackles. ABDOMEN: Soft, bowel sounds present. No distention. Mild discomfort. No guarding, no rigidity. CENTRAL NERVOUS SYSTEM: Cranial nerves II-XII grossly intact. Nonfocal. EXTREMITIES: Trace pedal edema present. No erythema seen. LABORATORIES: WBC 10.6, hemoglobin 14.2, hematocrit 41, platelets 285. Sodium 133, potassium 3.6, chloride 102, CO2 of 20, BUN 22, creatinine 1.1, serum glucose 105, calcium 8.8, total bilirubin 0.7, AST 49, ALT 57, alkaline phosphatase 87. Stool for C. diff positive. ASSESSMENT AND PLAN: This is an 82-year-old female who presents with multiple episodes of diarrhea and abdominal discomfort and found to be C. diff positive. 1. C. diff, multiple episodes of diarrhea going on for the last 2 days. Denies any recent antibiotic use. She has poor oral intake and also had 1 episode of vomiting. We will observe on medical floor. IV fluids with normal saline at 125 mL per hour. Follow the labs. P.O. vancomycin 125 mg q. 6 hours and also probiotics and follow the response, and PT/OT when patient is more stable. 2. History of hypertension. Continue amlodipine. We will monitor the blood pressure. 3. History of chronic kidney stage III, creatinine is 1.1. Seems stable. Will follow the labs. 4. Hypothyroidism. Continue Synthroid. 5. Depression. Continue home medications. 6. Deep venous thrombosis prophylaxis. Sequential compression devices for now. 7. Disposition: PT and OT prior to discharge. Social service to help with discharge planning. Level 1 full code. MTDD
[2018-04-23] MEDS: OLANZapine 5 MG TABLET PO SCH (21:34)
[2018-04-23] MEDS: TRAZODONE HCL 100 MG TAB PO SCH (21:35)
[2018-04-23] MEDS: SODIUM CHLORIDE 0.9% 1000ML 1,000 ML IV SCH (21:36)
[2018-04-24] MEDS: VANCOMYCIN HCL 125 MG/2.5ML SOLN PO SCH ×5 (01:40→23:25)
[2018-04-24] MEDS: RASPBERRY SYRUP 5 ML UDP PO SCH ×5 (01:40→23:25)
[2018-04-24 05:35] LABS: Basophils # (auto) 0.03 K/uL (0-0.2); Basophils % (auto) 0.3 %; Eosinophils % (auto) 1.9 %; Hematocrit (blood only) 36.4 % (37-47); Hemoglobin 12.3 g/dL (12.0-16.0); Immature Granulocytes # (auto) 0.04 K/uL (0.00-0.02); Immature Granulocytes % (auto) 0.4 %; Lymphocytes # (auto) 2.01 K/uL (1.2-3.4); Lymphocytes % (auto) 19.3 %; Mean Corpuscular Hgb Conc 33.8 g/dL (32-36); Mean Corpuscular Volume 92.2 fL (80-100); Mean Platelet Volume 10.4 fL (7.4-10.4); Monocytes # (auto) 1.07 K/uL (0.11-0.59); Monocytes % (auto) 10.3 %; Neutrophils # (auto) 7.07 K/uL (1.4-6.5); Neutrophils % (auto) 67.8 %; Platelet Count 222 K/uL (130-400); RDW Coefficient of Variation 14.3 % (11.5-14.5); RDW Standard Deviation 48.3 fL (36.4-46.3); Red Blood Count 3.95 M/uL (4.2-5.4); White Blood Count 10.42 K/uL (4.8-10.8)
[2018-04-24] MEDS: SODIUM CHLORIDE 0.9% 1000ML 1,000 ML IV SCH ×2 (05:43→14:19)
[2018-04-24 06:07] LABS: BUN Creatinine Ratio 14.1 (10-20); Calcium 7.6 mg/dl (8.5-10.1); Creatinine Clr Calc Pharmacy 35.1 ml/min; Est GFR (African American) 68.1; Est GFR (Non-African American) 58.7; Magnesium 1.7 mg/dl (1.8-2.4); Phosphorus 2.7 mg/dl (2.5-4.9); Potassium 3.3 mmol/L (3.5-5.1)
[2018-04-24] MEDS: LEVOTHYROXINE SODIUM 50 MCG TABLET PO SCH (06:17)
[2018-04-24] MEDS: LACTOBACILLUS ACIDOPHILUS 1 GM PACK PO SCH ×3 (08:09→17:50)
[2018-04-24] MEDS: ASPIRIN 81 MG ECTAB PO SCH (08:10)
[2018-04-24] MEDS: CHOLECALCIFEROL 1,000 UNITS TAB PO SCH (08:10)
[2018-04-24] MEDS: DULOXETINE HCL 60 MG CAP PO SCH (08:10)
[2018-04-24] MEDS: AMLODIPINE BESYLATE 5 MG TAB PO SCH (08:11)
[2018-04-24] MEDS: FOLIC ACID 1 MG TAB PO SCH (08:11)
[2018-04-24] MEDS: CEROVITE ADV FORMULA TAB PO SCH (08:11)
[2018-04-24] MEDS: DULOXETINE HCL 20 MG CAP PO SCH (08:11)
--- NOTE | 2018-04-24 11:29 | Hospitalist Progress Note ---
Date of Service April 24, 2018 Assessment & Plan (1) C. difficile diarrhea: Oral vancomycin 125 p.o. every 6 for 10 days Will DC when abdominal pain guarding diarrhea stops Positive C. difficile toxin on sample (2) Acute UTI (urinary tract infection): Start Rocephin (3) Generalized weakness: Treat the underlying cause (4) HTN (hypertension): Continue Norvasc and monitor blood pressure excellent (5) ANÍBAL (generalized anxiety disorder): Controlled on duloxetine BuSpar (6) MDD (major depressive disorder): Continue duloxetine Continue BuSpar (7) CKD (chronic kidney disease), stage III: Monitor renal function Avoid nephrotoxic medications (8) Hypothyroidism: Levoxyl (9) Chronic hepatitis C: We will monitor LFTs (10) Hypokalemia: Replete (11) Hypomagnesemia: Replete Dispositionwe will discharge patient when abdominal pain is gone, and diarrhea stops DVT prophylaxis with subcu heparin and SCDs Subjective This is an 82-year-old female with past medical history significant for hypothyroidism, chronic kidney disease stage III, depression, alcohol dependence , chronic hepatitis C, general anxiety disorder, hypertension. Presents with several episodes of diarrhea and found to have C. diff in the ER. ER tried to send her home, but patient does not feel safe to go home, so we are called for admission. The patient is currently resting comfortably, hemodynamically stable. She says that she is having multiple episodes of diarrhea since last few days. No blood in the stools, they were brownish color. Poor appetite and vomited once and also having lower abdominal pain, moderate in severity. Denies any fever, chills, no recent antibiotic use. Patient recently was in the hospital for weakness. At that time, there was recommendation for placement, but patient refused and she was ambulating, walking in the room and she was discharged home as she wanted to go home. The patient says at home she lives with her son and she is ambulating okay without any help. Denies any headaches , no earaches, no sore throat, no difficulty swallowing. No chest pain. Says she is always somewhat short of breath, no cough. Patient says that she is having frequent diarrhea, and abdominal pain that is intermittent. ROS-No Headache, No Visual Changes, No Fever, No Chills, No Neck Pain or Stiffness, No Chest Pain, No Palpitations, No SOB, No KAUFFMAN, No Cough, No Sputum, No Wheezing, positive abdominal Pain, positive diarrhea, No Hematemesis, No Hemoptysis, No Unexpected Weight Loss, No Flank pain, No Melena, No Hematochezia , No Frequency, No Urgency, No Burning, No Hematuria, No Rashes, No Diaphoresis. Appetite is Normal Physical Exam Gen-AAO x 3, NAD, Afebrile, pleasant Head-NCAT, EOMI, PERRLA, Anicteric Sclera, No Posterior Pharyngeal Erythema Neck-Supple, No JVD, No Thyromegaly, No Masses, No LAD, No Bruits Lungs-Clear to Auscultation Bilaterally, No Rales, No Rhonchi, No Wheezing, No Crepitus Chest-No S4, +S1, +S2, No S3, No Murmurs, No Rubs, No Gallops, No Ectopy Abdomen-Soft, Bowel Sounds Present, sore, Non Distended, No Hepatomegaly, No Splenomegaly, No Palpable Masses, No Rebound, No Rigidity, No Guarding Musculoskeletal-Full Range of Motion Bilaterally, No CVAT Extremities-No Cyanosis, No Clubbing, No Edema Nuero-Cranial Nerves II-XII grossly intact, Motor WNL, DTRs WNL, Strength WNL, No Focal Psych-Normal Mood Physical Exam 2 Vital Signs (Past 24 Hours): Last Vital Signs Temp 37.2 C 04/24/18 07:21 Pulse 86 04/24/18 07:21 Resp 20 04/24/18 07:21 BP 108/63 04/24/18 07:21 Pulse Ox 92 04/24/18 07:21 Results & Data Laboratory Results Allergies No Known Allergies Allergy (Unknown, Verified 04/23/18 17:36) Height/Weight/Isolation Height 5 ft 1 in Weight 48.2 kg Isolation Type Contact Precautions Chemistry 04/23/18 04/24/18 17:35 05:14 Sodium 133 L 140 D Potassium 3.6 3.3 L Chloride 102 111 H Carbon Dioxide 20 L 19 L Anion Gap 11.0 10.0 BUN 22 H 13 Creatinine 1.18 0.90 Glucose 105 H 83 Microbiology 04/23/18 17:20 Stool Escherichia coli Shiga Toxins - Preliminary 04/23/18 17:20 Stool Stool Culture - Preliminary No Salmonella isolated to date, No Shigella isolated to date, No Campylobacter jejuni isolated to date. C. difficile toxin positive
[2018-04-24] MEDS: cefTRIAXone SODIUM 1,000 MG in DEXTROSE 5% 50 ML IV SCH (12:21)
[2018-04-24] MEDS: MAGNESIUM SULFATE / D5W 1 GM/100 ML BAG IV SCH ×2 (13:03→15:12)
[2018-04-24] MEDS: SACCHAROMYCES BOULARDII 250 MG CAP PO SCH (14:14)
[2018-04-24] MEDS: POTASSIUM CHLORIDE / WTR 10 MEQ/100 ML PLCT IV SCH ×4 (14:15→19:35)
[2018-04-24] MEDS ORDERED: VANCOMYCIN HCL 125 MG/2.5ML SOLN PO ONE (18:28)
[2018-04-24] MEDS ORDERED: RASPBERRY SYRUP 5 ML UDP PO ONE (18:28)
[2018-04-24] MEDS: ZOLPIDEM TARTRATE 5 MG TAB PO PRN (20:40)
[2018-04-24] MEDS: TRAZODONE HCL 100 MG TAB PO SCH (20:41)
[2018-04-24] MEDS: OLANZapine 5 MG TABLET PO SCH (20:42)
[2018-04-25] MEDS: SODIUM CHLORIDE 0.9% 1000ML 1,000 ML IV SCH ×4 (01:42→20:18)
[2018-04-25] MEDS: VANCOMYCIN HCL 125 MG/2.5ML SOLN PO SCH ×3 (06:00→18:16)
[2018-04-25] MEDS: RASPBERRY SYRUP 5 ML UDP PO SCH ×3 (06:00→18:16)
[2018-04-25] MEDS: LEVOTHYROXINE SODIUM 50 MCG TABLET PO SCH (06:01)
[2018-04-25] MEDS: ASPIRIN 81 MG ECTAB PO SCH (08:58)
[2018-04-25] MEDS: DULOXETINE HCL 20 MG CAP PO SCH (08:58)
[2018-04-25] MEDS: AMLODIPINE BESYLATE 5 MG TAB PO SCH (08:58)
[2018-04-25] MEDS: CHOLECALCIFEROL 1,000 UNITS TAB PO SCH (08:58)
[2018-04-25] MEDS: SACCHAROMYCES BOULARDII 250 MG CAP PO SCH (08:58)
[2018-04-25] MEDS: CEROVITE ADV FORMULA TAB PO SCH (08:58)
[2018-04-25] MEDS: DULOXETINE HCL 60 MG CAP PO SCH (08:58)
[2018-04-25] MEDS: FOLIC ACID 1 MG TAB PO SCH (08:59)
[2018-04-25] MEDS: LACTOBACILLUS ACIDOPHILUS 1 GM PACK PO SCH ×3 (08:59→16:57)
[2018-04-25] MEDS: cefTRIAXone SODIUM 1,000 MG in DEXTROSE 5% 50 ML IV SCH (12:10)
--- NOTE | 2018-04-25 13:02 | Hospitalist Progress Note ---
Date of Service April 25, 2018 Assessment & Plan (1) C. difficile diarrhea: Oral vancomycin 125 p.o. every 6 for 10 days Will DC when abdominal pain and diarrhea stops Positive C. difficile toxin on sample, change to inpatient status (2) Acute UTI (urinary tract infection): Continue Rocephin (3) Generalized weakness: Treat the underlying cause (4) HTN (hypertension): Continue Norvasc and monitor blood pressure excellent (5) ANÍBAL (generalized anxiety disorder): Controlled on duloxetine BuSpar (6) MDD (major depressive disorder): Continue duloxetine Continue BuSpar (7) CKD (chronic kidney disease), stage III: Monitor renal function Avoid nephrotoxic medications (8) Hypothyroidism: Levoxyl (9) Chronic hepatitis C: We will monitor LFTs as warranted (10) Hypokalemia: Replete (11) Hypomagnesemia: Replete Dispositionwe will discharge patient when abdominal pain is gone, and diarrhea stops DVT prophylaxis with subcu heparin and SCDs Subjective This is an 82-year-old female with past medical history significant for hypothyroidism, chronic kidney disease stage III, depression, alcohol dependence , chronic hepatitis C, general anxiety disorder, hypertension. Presents with several episodes of diarrhea and found to have C. diff in the ER. ER tried to send her home, but patient does not feel safe to go home, so we are called for admission. The patient is currently resting comfortably, hemodynamically stable. She says that she is having multiple episodes of diarrhea since last few days. No blood in the stools, they were brownish color. Poor appetite and vomited once and also having lower abdominal pain, moderate in severity. Denies any fever, chills, no recent antibiotic use. Patient recently was in the hospital for weakness. At that time, there was recommendation for placement, but patient refused and she was ambulating, walking in the room and she was discharged home as she wanted to go home. The patient says at home she lives with her son and she is ambulating okay without any help. Denies any headaches , no earaches, no sore throat, no difficulty swallowing. No chest pain. Says she is always somewhat short of breath, no cough. Patient says that she is having frequent diarrhea, and abdominal pain that is intermittent. No change from yesterday ROS-No Headache, No Visual Changes, No Fever, No Chills, No Neck Pain or Stiffness, No Chest Pain, No Palpitations, No SOB, No KAUFFMAN, No Cough, No Sputum, No Wheezing, positive abdominal Pain, but improving, still with positive diarrhea, No Hematemesis, No Hemoptysis, No Unexpected Weight Loss, No Flank pain, No Melena, No Hematochezia, No Frequency, No Urgency, No Burning, No Hematuria, No Rashes, No Diaphoresis. Appetite is Normal Physical Exam Gen-AAO x 3, NAD, Afebrile, pleasant Head-NCAT, EOMI, PERRLA, Anicteric Sclera, No Posterior Pharyngeal Erythema Neck-Supple, No JVD, No Thyromegaly, No Masses, No LAD, No Bruits Lungs-Clear to Auscultation Bilaterally, No Rales, No Rhonchi, No Wheezing, No Crepitus Chest-No S4, +S1, +S2, No S3, No Murmurs, No Rubs, No Gallops, No Ectopy Abdomen-Soft, Bowel Sounds Present, sore, Non Distended, No Hepatomegaly, No Splenomegaly, No Palpable Masses, No Rebound, No Rigidity, No Guarding Musculoskeletal-Full Range of Motion Bilaterally, No CVAT Extremities-No Cyanosis, No Clubbing, No Edema Nuero-Cranial Nerves II-XII grossly intact, Motor WNL, DTRs WNL, Strength WNL, No Focal Psych-Normal Mood Physical Exam 2 Vital Signs (Past 24 Hours): Last Vital Signs Temp 37.2 C 04/25/18 07:30 Pulse 75 04/25/18 07:30 Resp 16 04/25/18 07:30 BP 106/56 L 04/25/18 07:30 Pulse Ox 93 04/25/18 07:30 Results & Data Laboratory Results Current Diagnoses Enterocolitis due to Clostridium difficile, not specified as recurrent (04/23/18 ) Chronic viral hepatitis C (04/23/18) Hypothyroidism, unspecified (04/23/18) Hypomagnesemia (04/23/18) Hypokalemia (04/23/18) Major depressive disorder, single episode, unspecified (04/23/18) Generalized anxiety disorder (04/23/18) Essential (primary) hypertension (04/23/18) Chronic kidney disease, stage 3 (moderate) (04/23/18) Urinary tract infection, site not specified (04/23/18) Weakness (04/23/18) Allergies No Known Allergies Allergy (Unknown, Verified 04/23/18 17:36) Height/Weight/Isolation Height 5 ft 1 in Weight 48.2 kg Isolation Type Contact Precautions Chemistry 04/23/18 04/24/18 17:35 05:14 Sodium 133 L 140 D Potassium 3.6 3.3 L Chloride 102 111 H Carbon Dioxide 20 L 19 L Anion Gap 11.0 10.0 BUN 22 H 13 Creatinine 1.18 0.90 Glucose 105 H 83 Microbiology 04/23/18 17:20 Stool Escherichia coli Shiga Toxins - Preliminary 04/23/18 17:20 Stool Stool Culture - Preliminary No Salmonella isolated to date, No Shigella isolated to date, No Campylobacter jejuni isolated to date.
[2018-04-25] MEDS: OLANZapine 5 MG TABLET PO SCH (20:14)
[2018-04-25] MEDS: TRAZODONE HCL 100 MG TAB PO SCH (20:15)
[2018-04-26] MEDS: VANCOMYCIN HCL 125 MG/2.5ML SOLN PO SCH ×4 (00:46→17:56)
[2018-04-26] MEDS: RASPBERRY SYRUP 5 ML UDP PO SCH ×4 (00:46→17:57)
[2018-04-26] MEDS: SODIUM CHLORIDE 0.9% 1000ML 1,000 ML IV SCH (04:22)
[2018-04-26 05:52] LABS: Hematocrit (blood only) 36.4 % (37-47); Hemoglobin 12.5 g/dL (12.0-16.0); Mean Corpuscular Hgb Conc 34.3 g/dL (32-36); Mean Corpuscular Volume 90.8 fL (80-100); Mean Platelet Volume 10.5 fL (7.4-10.4); Platelet Count 231 K/uL (130-400); RDW Coefficient of Variation 14.3 % (11.5-14.5); RDW Standard Deviation 47.3 fL (36.4-46.3); Red Blood Count 4.01 M/uL (4.2-5.4); White Blood Count 8.15 K/uL (4.8-10.8)
[2018-04-26 06:29] LABS: Calcium 7.4 mg/dl (8.5-10.1); Creatinine Clr Calc Pharmacy 43.3 ml/min; Est GFR (African American) 87.7; Est GFR (Non-African American) 75.6; Potassium 2.6 mmol/L (3.5-5.1)
[2018-04-26] MEDS: LEVOTHYROXINE SODIUM 50 MCG TABLET PO SCH (06:38)
[2018-04-26 06:39] LABS: BUN Creatinine Ratio 1.5 (10-20)
[2018-04-26] MEDS ORDERED: POTASSIUM CHLORIDE 20 MEQ TABCR PO STA (07:52)
[2018-04-26] MEDS ORDERED: POTASSIUM CHLORIDE / WTR 10 MEQ/100 ML PLCT IV ONE (08:00)
[2018-04-26] MEDS: SACCHAROMYCES BOULARDII 250 MG CAP PO SCH (08:46)
[2018-04-26] MEDS: CEROVITE ADV FORMULA TAB PO SCH (08:46)
[2018-04-26] MEDS: LACTOBACILLUS ACIDOPHILUS 1 GM PACK PO SCH ×3 (08:46→16:51)
[2018-04-26] MEDS: FOLIC ACID 1 MG TAB PO SCH (08:47)
[2018-04-26] MEDS: DULOXETINE HCL 60 MG CAP PO SCH (08:47)
[2018-04-26] MEDS: CHOLECALCIFEROL 1,000 UNITS TAB PO SCH (08:47)
[2018-04-26] MEDS: ASPIRIN 81 MG ECTAB PO SCH (08:47)
[2018-04-26] MEDS: DULOXETINE HCL 20 MG CAP PO SCH (08:47)
[2018-04-26] MEDS: AMLODIPINE BESYLATE 5 MG TAB PO SCH (08:57)
[2018-04-26] MEDS ORDERED: POTASSIUM CHLORIDE 40 MEQ, MAGNESIUM SULFATE 50% 4 GM in SODIUM CHLORIDE 0.9% 500 ML IV SCH (09:45)
--- NOTE | 2018-04-26 11:54 | Hospitalist Progress Note ---
Date of Service April 26, 2018 Assessment & Plan (1) C. difficile diarrhea: Oral vancomycin 125 p.o. every 6 for 10 days, day 3 of 10 Positive C. difficile toxin on sample -avoid antibiotics if able -florastor daily -discontinue continuous IVF, patient tolerated PO intake -advance diet as tolerated -continue cdiff precautions (2) Hypokalemia: -most likely secondary to GI Loss, 1500ml stool output from rectal tube -replete with 40mg po tid -IV KCL 40meq in 500ml NS with +2gMagSulfate -repeat bmp 1400 and in a.m. (3) Hypomagnesemia: -give 2g Mag sulfate along with KCL supplementation in 500ml NS -repeat mag in a.m. (4) Acute UTI (urinary tract infection): urine from 04/16 culture grew mixed skin jennifer -given current cdiff will d/c rocephin, doubt active infection -discontinue cruz cath (5) Generalized weakness: Treat the underlying cause consult PT/OT prior to discharge (6) HTN (hypertension): -Bp controlled on Norvasc, monitor (7) ANÍBAL (generalized anxiety disorder): Controlled on duloxetine and BuSpar (8) MDD (major depressive disorder): Continue duloxetine mood is stable (9) CKD (chronic kidney disease), stage III: -renal fx at baseline, cr 0.73 Avoid nephrotoxic medications (10) Hypothyroidism: -continue Levoxyl (11) Chronic hepatitis C: We will monitor LFTs as warranted (12) DVT prophylaxis: -SCDS -consult PT/OT Disposition: D/C to home, initally felt placement would benefit patient; however she has refused and plan is to D/C home when medically able Follow up: with PCP Dr. Rivera upon discharge Patient was seen in collaboration with Dr. Horowitz, please see addendum Supervising Physician Co-Signing Physician Notes I have seen and examined the patient and have discussed the case with the provider above. I agree with the assessment and plan as stated. Rectal tube in place for comfort with excessive diarrhea. Cont lyte replacement as above. Cont Vanc PO for c-diff. She is tolerating PO so IVF were stopped although will have a low threshold to restart if dehydration becomes apparent. Rocephin was stopped as no symptoms are reported, no sample was collected this admission and previous recent outpatient UCx did not reveal an infection. DO Babar Horowitz Patient was seen and evaluated in room 403. F/U Cdiff. Patient lying in bed, "I don't want to get up yet." Answers questions approp but is short. Denies f/c/s, chest pain, sob, n/v, abdominal pain. Per nursing tolerated clear liquid diet and will advance for lunch. Continues with stool output via rectal tube, 1500ml 3-11pm last evening. Physical Exam 2 Vital Signs (Past 24 Hours): Last Vital Signs Temp 37.0 C 04/26/18 07:48 Pulse 87 04/26/18 08:57 Resp 16 04/26/18 07:48 BP 123/70 04/26/18 08:57 Pulse Ox 91 04/26/18 07:48 Physical Exam: Gen: Thin, petite, F, lying in lateral decub position, NAD, resting, A&O x3 HEENT: Normocephalic, atraumatic, conjunctivae moist, sclerae anicteric, mucous membranes moist. Lung: Clear to Auscultation bilaterally, no wheezes/rales/rhonchi Heart: Regular rate, regular rhythm, no murmurs, rubs, or gallops Abdomen: Soft, NT, ND +BS x 4 Extremities: No edema Skin: Warm, no rash, negative turgor. : +rectal tube with stool output, +cruz with yellow urine output Results & Data Laboratory Results Short CBC 04/24/18 04/26/18 04/26/18 Range/Units 05:14 05:17 05:17 WBC 8.15 (4.8-10.8) K/uL Hgb 12.5 (12.0-16.0) g/dL Hct 36.4 L (37-47) % Plt Count 231 (130-400) K/uL Magnesium 1.7 L 1.6 L (1.8-2.4) mg/dl BMP 04/26/18 05:17 Sodium 142 Potassium 2.6 L Chloride 111 H Carbon Dioxide 26 BUN 1 L Creatinine 0.73 Glucose 84 Calcium 7.4 L
[2018-04-26] MEDS: cefTRIAXone SODIUM 1,000 MG in DEXTROSE 5% 50 ML IV SCH (12:33)
[2018-04-26] MEDS ORDERED: POTASSIUM CHLORIDE 20 MEQ TABCR PO SCH (14:00)
[2018-04-26] MEDS: POTASSIUM CHLORIDE 20 MEQ TABCR PO SCH ×2 (14:20→16:52)
[2018-04-26 14:45] LABS: BUN Creatinine Ratio 1.9 (10-20); Calcium 7.9 mg/dl (8.5-10.1); Est GFR (African American) 79.7; Est GFR (Non-African American) 68.7; Potassium 3.7 mmol/L (3.5-5.1)
[2018-04-26] MEDS: TRAZODONE HCL 100 MG TAB PO SCH (21:32)
[2018-04-26] MEDS: OLANZapine 5 MG TABLET PO SCH (21:33)
[2018-04-27] MEDS: VANCOMYCIN HCL 125 MG/2.5ML SOLN PO SCH ×5 (00:41→23:42)
[2018-04-27] MEDS: RASPBERRY SYRUP 5 ML UDP PO SCH ×5 (00:41→23:42)
[2018-04-27 06:00] LABS: Hematocrit (blood only) 37.3 % (37-47); Hemoglobin 12.6 g/dL (12.0-16.0); Mean Corpuscular Hgb Conc 33.8 g/dL (32-36); Mean Corpuscular Volume 91.4 fL (80-100); Mean Platelet Volume 10.7 fL (7.4-10.4); Platelet Count 265 K/uL (130-400); RDW Coefficient of Variation 14.7 % (11.5-14.5); RDW Standard Deviation 48.8 fL (36.4-46.3); Red Blood Count 4.08 M/uL (4.2-5.4); White Blood Count 9.37 K/uL (4.8-10.8)
[2018-04-27] MEDS: LEVOTHYROXINE SODIUM 50 MCG TABLET PO SCH (06:34)
[2018-04-27 06:36] LABS: BUN Creatinine Ratio 5.4 (10-20); Creatinine Clr Calc Pharmacy 41.6 ml/min; Est GFR (African American) 83.5; Phosphorus 1.6 mg/dl (2.5-4.9); Potassium 3.9 mmol/L (3.5-5.1)
--- NOTE | 2018-04-27 07:42 | Hospitalist Progress Note ---
Date of Service April 27, 2018 Assessment & Plan (1) C. difficile diarrhea: -Oral vancomycin 125 p.o. every 6 for 10 days, day 4 of 10 -Positive C. difficile toxin on sample -continue rectal tube, stool output slowing to 300ml -avoid antibiotics if able -florastor daily -continues to tolerate po intake -advance diet as tolerated -continue cdiff precautions (2) Hypokalemia: -most likely secondary to GI Loss, -K today 3.9 -will decrease supplementation to 40meq daily as well as add Eosuwf-P-Rkam for phosphate repletion QID -repeat bmp in a.m. (3) Hypomagnesemia: -repleted, mag 2.0 -monitor (4) Hypophosphatemia: -replete, check phos in a.m. (5) Acute UTI (urinary tract infection): -urine from 04/16 culture grew mixed skin jennifer -given current cdiff will d/c rocephin, doubt active infection -discontinue cruz cath (6) Generalized weakness: -improving, PT/OT consulted eval patient and she is independent of activities (7) HTN (hypertension): -Bp controlled on Norvasc, monitor (8) ANÍBAL (generalized anxiety disorder): -Controlled on duloxetine and BuSpar (9) MDD (major depressive disorder): -Continue duloxetine mood is stable (10) CKD (chronic kidney disease), stage III: -renal fx at baseline, cr 0.76 -Avoid nephrotoxic medications (11) Hypothyroidism: -continue Levoxyl (12) Chronic hepatitis C: -monitor LFTs as warranted (13) DVT prophylaxis: -SCDS -consult PT/OT Disposition: D/C to home with Son and mother in law Follow up: with PCP Dr. Rivera upon discharge Patient was seen in collaboration with Dr. Horowitz, please see addendum Supervising Physician Co-Signing Physician Notes I have seen and examined the patient and have discussed the case with the provider above. I agree with the assessment and plan as stated. Pt declines inpatient rehab. Feeling better, stool forming up. Abdomen less painful with no TTP or guarding on exam today. Continues to tolerate PO. Likely dc to home in next 1-2 days. DO Carlos Manuel Subjective Patient was seen and evaluated in room 403. F/U Cdiff. Patient lying in bed, "I peed myself I couldn't hold it." Otherwise feels okay this morning. Denies f/c/s, chest pain, sob, n/v, abdominal pain, dysuria, hematuria, increased freq with urination. She is tolerating advanced diet. Per nursing patient independent of ADLs, but needs assistance given rectal tube and IV. Worked with PT/OT and remains mostly independent. Nursing further notes rectal tube fell out yesterday, patient had episode of incontinent stool and requested tube be replaced. Nursing feels stool freq is slowing. Physical Exam 2 Vital Signs (Past 24 Hours): Last Vital Signs Temp 37.5 C 04/27/18 07:39 Pulse 86 04/27/18 07:39 Resp 18 04/27/18 07:39 BP 112/65 04/27/18 07:39 Pulse Ox 93 04/27/18 07:39 Physical Exam: Gen: Thin, petite, F, lying in bed, NAD, resting, A&O x3 HEENT: Normocephalic, atraumatic, conjunctivae moist, sclerae anicteric, mucous membranes moist. Lung: Clear to Auscultation bilaterally, no wheezes/rales/rhonchi Heart: Regular rate, regular rhythm, no murmurs, rubs, or gallops Abdomen: Soft, NT, ND +BS x 4 Extremities: No edema Skin: Warm, no rash, negative turgor. : +rectal tube with stool output, Results & Data Laboratory Results Short CBC 04/27/18 Range/Units 05:33 WBC 9.37 (4.8-10.8) K/uL Hgb 12.6 (12.0-16.0) g/dL Hct 37.3 (37-47) % Plt Count 265 (130-400) K/uL BMP 04/26/18 04/27/18 13:47 05:33 Sodium 143 142 Potassium 3.7 D 3.9 Chloride 114 H 110 H Carbon Dioxide 28 26 BUN 1 L 4 L Creatinine 0.79 0.76 Glucose 112 H 109 H Calcium 7.9 L 8.0 L Medications Administered Current Inpatient Medications Acetaminophen (Tylenol) 650 mg PO Q4H PRN PRN Reason: pain/fever Stop: 05/23/18 20:49 Last Admin: 04/24/18 19:53 Dose: 650 mg Amlodipine Besylate (Norvasc) 10 mg PO DAILY HELADIO Stop: 05/24/18 08:59 Last Admin: 04/26/18 08:57 Dose: 10 mg Aspirin (Ecotrin Ectab) 81 mg PO DAILY HELADIO Stop: 05/24/18 08:59 Last Admin: 04/26/18 08:47 Dose: 81 mg Buspirone HCl (Buspar) 5 mg PO BID HELADIO Stop: 05/23/18 20:59 Last Admin: 04/26/18 21:33 Dose: 5 mg Duloxetine HCl (Cymbalta) 20 mg PO DAILY HELADIO Stop: 05/24/18 08:59 Last Admin: 04/26/18 08:47 Dose: 20 mg Duloxetine HCl (Cymbalta) 60 mg PO DAILY HELADIO Stop: 05/24/18 08:59 Last Admin: 04/26/18 08:47 Dose: 60 mg Folic Acid (Folvite) 1 mg PO DAILY HELADIO Stop: 05/24/18 08:59 Last Admin: 04/26/18 08:47 Dose: 1 mg Lactobacillus Acidophilus (Floranex Granules/Powder Packet) 1 gm PO TIDM HELADIO Stop: 05/24/18 07:59 Last Admin: 04/26/18 16:51 Dose: 1 gm Levothyroxine Sodium (Synthroid) 50 mcg PO DAILYBB HELADIO Stop: 05/24/18 06:29 Last Admin: 04/27/18 06:34 Dose: 50 mcg Multivitamins/Minerals (Multivitamin W/ Minerals Tab) 1 tab PO QAM HELADIO Stop: 05/24/18 08:59 Last Admin: 04/26/18 08:46 Dose: 1 tab Olanzapine (Zyprexa) 15 mg PO HS HELADIO Stop: 05/23/18 20:59 Last Admin: 04/26/18 21:33 Dose: 15 mg Ondansetron HCl (Zofran) 4 mg IV Q6H PRN PRN Reason: Nausea Stop: 05/23/18 20:49 Potassium Chloride (Klor-Con M20) 40 meq PO TIDM HELADIO Stop: 05/26/18 13:59 Last Admin: 04/26/18 16:52 Dose: 40 meq Raspberry (Raspberry) 5 ml PO Q6 HELADIO Stop: 05/08/18 00:00 Last Admin: 04/27/18 06:34 Dose: 5 ml Saccharomyces Boulardii (Florastor) 250 mg PO DAILY HELADIO Stop: 05/24/18 11:44 Last Admin: 04/26/18 08:46 Dose: 250 mg Trazodone HCl (Desyrel) 100 mg PO HS HELADIO Stop: 05/23/18 20:59 Last Admin: 04/26/18 21:32 Dose: 100 mg Vancomycin HCl (Vancomycin Hcl) 125 mg PO Q6 HELADIO Stop: 05/04/18 00:00 Last Admin: 04/27/18 06:34 Dose: 125 mg Vitamin D (Vitamin D3) 1,000 units PO DAILY HELADIO Stop: 05/24/18 08:59 Last Admin: 04/26/18 08:47 Dose: 1,000 units Zolpidem Tartrate (Ambien) 5 mg PO HS PRN PRN Reason: Sleep Stop: 05/24/18 19:57 Last Admin: 04/24/18 20:40 Dose: 5 mg _ (1) MDD (major depressive disorder) Active/Remission status: remission status unspecified Major depression recurrence: unspecified whether recurrent Qualified Code(s): F32.9 - Major depressive disorder, single episode, unspecified (2) Chronic hepatitis C Hepatic coma status: without hepatic coma Qualified Code(s): B18.2 - Chronic viral hepatitis C (3) Hypothyroidism Hypothyroidism type: unspecified Qualified Code(s): E03.9 - Hypothyroidism, unspecified (4) HTN (hypertension) Hypertension type: essential hypertension Qualified Code(s): I10 - Essential (primary) hypertension
[2018-04-27] MEDS ORDERED: POTASSIUM CHLORIDE 20 MEQ TABCR PO SCH (09:00)
[2018-04-27] MEDS: AMLODIPINE BESYLATE 5 MG TAB PO SCH (09:23)
[2018-04-27] MEDS: CHOLECALCIFEROL 1,000 UNITS TAB PO SCH (09:23)
[2018-04-27] MEDS: POT PHOSPHATE MONOBASIC W/ SOD TAB PO SCH ×4 (09:24→20:42)
[2018-04-27] MEDS: ASPIRIN 81 MG ECTAB PO SCH (09:24)
[2018-04-27] MEDS: DULOXETINE HCL 20 MG CAP PO SCH (09:24)
[2018-04-27] MEDS: DULOXETINE HCL 60 MG CAP PO SCH (09:24)
[2018-04-27] MEDS: FOLIC ACID 1 MG TAB PO SCH (09:24)
[2018-04-27] MEDS: LACTOBACILLUS ACIDOPHILUS 1 GM PACK PO SCH ×3 (09:24→17:31)
[2018-04-27] MEDS: CEROVITE ADV FORMULA TAB PO SCH (09:24)
[2018-04-27] MEDS: POTASSIUM CHLORIDE 20 MEQ TABCR PO SCH (09:25)
[2018-04-27] MEDS: SACCHAROMYCES BOULARDII 250 MG CAP PO SCH (09:25)
[2018-04-27] MEDS: ZOLPIDEM TARTRATE 5 MG TAB PO PRN (20:38)
[2018-04-27] MEDS: TRAZODONE HCL 100 MG TAB PO SCH (20:38)
[2018-04-27] MEDS: OLANZapine 5 MG TABLET PO SCH (20:42)
[2018-04-28] MEDS: VANCOMYCIN HCL 125 MG/2.5ML SOLN PO SCH ×3 (06:17→17:41)
[2018-04-28] MEDS: RASPBERRY SYRUP 5 ML UDP PO SCH ×3 (06:18→17:41)
[2018-04-28] MEDS: LEVOTHYROXINE SODIUM 50 MCG TABLET PO SCH (06:18)
[2018-04-28 06:22] LABS: BUN Creatinine Ratio 8.3 (10-20); Calcium 8.7 mg/dl (8.5-10.1); Creatinine Clr Calc Pharmacy 45.1 ml/min; Est GFR (African American) 92.2; Est GFR (Non-African American) 79.6; Magnesium 1.8 mg/dl (1.8-2.4)
[2018-04-28 06:24] LABS: Phosphorus 4.2 mg/dl (2.5-4.9)
[2018-04-28] MEDS: DULOXETINE HCL 60 MG CAP PO SCH (08:43)
[2018-04-28] MEDS: SACCHAROMYCES BOULARDII 250 MG CAP PO SCH (08:43)
[2018-04-28] MEDS: AMLODIPINE BESYLATE 5 MG TAB PO SCH (08:43)
[2018-04-28] MEDS: CHOLECALCIFEROL 1,000 UNITS TAB PO SCH (08:43)
[2018-04-28] MEDS: LACTOBACILLUS ACIDOPHILUS 1 GM PACK PO SCH ×3 (08:43→17:40)
[2018-04-28] MEDS: CEROVITE ADV FORMULA TAB PO SCH (08:43)
[2018-04-28] MEDS: ASPIRIN 81 MG ECTAB PO SCH (08:44)
[2018-04-28] MEDS: FOLIC ACID 1 MG TAB PO SCH (08:44)
[2018-04-28] MEDS: DULOXETINE HCL 20 MG CAP PO SCH (08:44)
[2018-04-28] MEDS: POTASSIUM CHLORIDE 20 MEQ TABCR PO SCH (08:44)
--- NOTE | 2018-04-28 08:53 | Hospitalist Progress Note ---
Addendum entered and electronically signed by Alessia Mckinley PA-C 12:29: Addendum (Blank) Addendum April 28, 2018 12:27 Unfortunately patient had turn of events since evaluated this morning, developed 4 loose BM, one incontinent. Due to increase freq in stool feel it is best to keep patient in house for further monitoring. Patient and son notified d/c is being placed on hold. Discussed with attending Dr. Horowitz. Addendum entered and electronically signed by Alessia Mckinley PA-C 12:00: Addendum (Blank) Addendum April 28, 2018 11:56 Update: PT/OT notes reviewed from 04/26 and 04/27. Per OT: recommendations are to return home, patient independent of ADL Per PT: recommendation is rehab, amb distance ~ 100ft with supervision, assist 1 , per PT this is a slight decline from prior visit. Gait is slowed and shuffled. Patient refused and declined rehab and will be discharged home today. Discussed with patients son regarding patient being discharged home. Son and daughter in law assist patient with ADL and are comfortable with her returning home. Addendum entered and electronically signed by Alessia Mckinley PA-C 10:12: Addendum (Blank) Addendum April 28, 2018 10:12 Discussed patient case with son Silvestre regarding her current progress being made as well as her ability to be discharged later today. Patient will be returning to live with her son. He agrees with the below assessment and treatment plan. Original Note: Date of Service April 28, 2018 Assessment & Plan (1) C. difficile diarrhea: -Oral vancomycin 125 p.o. every 6 for 10 days, day 5 of 10 -Positive C. difficile toxin on sample -stool frequent diminishing, rectal tube removed -avoid antibiotics if able -florastor daily -continues to tolerate po intake -advance diet as tolerated -continue cdiff precautions (2) Hypokalemia: -most likely secondary to GI Loss, -K today 4.0 -will discontinue K supplementation (3) Hypomagnesemia: -repleted, mag 1.8 (4) Hypophosphatemia: -repleted, phos 4.2 (5) Acute UTI (urinary tract infection): -urine from 04/16 culture grew mixed skin jennifer -given current cdiff will d/c rocephin, doubt active infection (6) Generalized weakness: -improving, PT/OT consulted eval patient and she is independent of activities (7) HTN (hypertension): -Bp controlled on Norvasc, monitor (8) ANÍBAL (generalized anxiety disorder): -Controlled on duloxetine and BuSpar (9) MDD (major depressive disorder): -Continue duloxetine mood is stable (10) CKD (chronic kidney disease), stage III: -renal fx at baseline, cr 0.76 -Avoid nephrotoxic medications (11) Hypothyroidism: -continue Levoxyl (12) Chronic hepatitis C: -monitor LFTs as warranted (13) DVT prophylaxis: -SCDS Disposition: Plan is to D/C to home with Son today 04/28/18 Follow up: with PCP Dr. Rivera upon discharge 05/03/18 @ 1:05pm Patient was seen in collaboration with Dr. Horowitz, please see addendum Supervising Physician Co-Signing Physician Notes I have seen and examined the patient and have discussed the case with the provider above. I agree with the assessment and plan as stated. Pt was going to be discharged but developed multiple loose episodes of stool and was incontinent of stool and urine. Cont supportive care in the hospital. DO Babar Horowitz Patient was seen and evaluated in room 403. F/U Cdiff. Patient lying in bed, unpleasant, "what do you want?" Denies f/c/s, chest pain , sob, n/v, abdominal pain. Rectal tube removed yesterday. Had 1 stool last night, per nursing starting to form. Appetite is improving, PO intake has improved. No nursing concerns. Physical Exam 2 Vital Signs (Past 24 Hours): Last Vital Signs Temp 36.9 C 04/28/18 08:00 Pulse 85 04/28/18 08:00 Resp 18 04/28/18 08:00 BP 106/68 04/28/18 08:00 Pulse Ox 91 04/28/18 08:00 Physical Exam: Gen: Thin, petite, F, lying in lateral decub position, NAD, resting, A&O x3 HEENT: Normocephalic, atraumatic, conjunctivae moist, sclerae anicteric, mucous membranes moist. Lung: Clear to Auscultation bilaterally, no wheezes/rales/rhonchi Heart: Regular rate, regular rhythm, no murmurs, rubs, or gallops Abdomen: Soft, NT, ND +BS x 4 Extremities: No edema Skin: Warm, no rash, negative turgor. Results & Data Laboratory Results [facility] 04/28/18 05:31 Sodium 140 Potassium 4.0 Chloride 110 H Carbon Dioxide 29 BUN 6 L Creatinine 0.70 Glucose 83 Calcium 8.7 _ (1) MDD (major depressive disorder) Active/Remission status: remission status unspecified Major depression episode severity: Major depression recurrence: unspecified whether recurrent Psychotic features: Qualified Code(s): F32.9 - Major depressive disorder, single episode, unspecified (2) Chronic hepatitis C Hepatic coma status: without hepatic coma Qualified Code(s): B18.2 - Chronic viral hepatitis C (3) Hypothyroidism Hypothyroidism type: unspecified Qualified Code(s): E03.9 - Hypothyroidism, unspecified (4) HTN (hypertension) Hypertension type: essential hypertension Qualified Code(s): I10 - Essential (primary) hypertension
--- NOTE | 2018-04-28 10:13 | Discharge Summary ---
"Date of Service April 28, 2018 Admission HPI Per Admitting Provider HISTORY OF PRESENT ILLNESS: This is an 82-year-old female with past medical history significant for hypothyroidism, chronic kidney disease stage III, depression, alcohol dependence, chronic hepatitis C, general anxiety disorder, hypertension. Presents with several episodes of diarrhea and found to have C. diff in the ER. ER tried to send her home, but patient does not feel safe to go home, so we are called for admission. The patient is currently resting comfortably, hemodynamically stable. She says that she is having multiple episodes of diarrhea since last few days. No blood in the stools, they were brownish color. Poor appetite and vomited once and also having lower abdominal pain, moderate in severity. Denies any fever, chills, no recent antibiotic use. Patient recently was in the hospital for weakness. At that time, there was recommendation for placement, but patient refused and she was ambulating, walking in the room and she was discharged home as she wanted to go home. The patient says at home she lives with her son and she is ambulating okay without any help. Denies any headaches, no earaches, no sore throat, no difficulty swallowing. No chest pain. Says she is always somewhat short of breath, no cough. Admission Exam Per Admitting Provider PHYSICAL EXAMINATION: GENERAL: The patient is old and frail, not in acute distress. VITAL SIGNS: Temperature 37, respiratory rate 16, pulse 95, blood pressure 150/75, oxygen 95% room air. HEENT: No pallor, no icterus. Pupils equal, round, and reactive to light. NECK: No JVD, no neck masses, no carotid bruit. CARDIOVASCULAR: S1, S2 heard, regular rate and rhythm, no murmur, no gallop. RESPIRATORY SYSTEM: Normal AP diameter. No accessory muscle use. No wheezing, no crackles. ABDOMEN: Soft, bowel sounds present. No distention. Mild discomfort. No guarding, no rigidity. CENTRAL NERVOUS SYSTEM: Cranial nerves II-XII grossly intact. Nonfocal. EXTREMITIES: Trace pedal edema present. No erythema seen. LABORATORIES: WBC 10.6, hemoglobin 14.2, hematocrit 41, platelets 285. Sodium 133, potassium 3.6, chloride 102, CO2 of 20, BUN 22, creatinine 1.1, serum glucose 105, calcium 8.8, total bilirubin 0.7, AST 49, ALT 57, alkaline phosphatase 87. Stool for C. diff positive. Principal Diagnosis C difficle infection Electrolyte abnormalities including hypokalemia, hypomagnesemia, hypophosphatemia Generalized Weakness Discharge Exam Gen: Thin, petite, F, lying in lateral decub position, NAD, resting, A&O x3 HEENT: Normocephalic, atraumatic, conjunctivae moist, sclerae anicteric, mucous membranes moist. Lung: Clear to Auscultation bilaterally, no wheezes/rales/rhonchi Heart: Regular rate, regular rhythm, no murmurs, rubs, or gallops Abdomen: Soft, NT, ND +BS x 4 Extremities: No edema Skin: Warm, no rash, negative turgor. Discharge Data Allergies Allergy/AdvReac Type Severity Reaction Status Date / Time No Known Allergies Allergy Unknown Verified 04/23/18 17:36 Consultations 04/23/18 19:54 ED Decision to Admit Stat 04/23/18 20:50 Consult Case Management - Discharge Planning Routine Ordered Studies Laboratory Results - last 72 hr 04/26/18 04/26/18 04/26/18 05:17 05:17 05:17 WBC 8.15 RBC 4.01 L Hgb 12.5 Hct 36.4 L MCV 90.8 MCH 31.2 MCHC 34.3 RDW Std Deviation 47.3 H RDW Coeff of Lázaro 14.3 Plt Count 231 MPV 10.5 H Sodium 142 Potassium 2.6 L Chloride 111 H Carbon Dioxide 26 Anion Gap 5.0 BUN 1 L Creatinine 0.73 Est Cr Clr Drug Dosing 43.3 Est GFR ( Amer) 87.7 Est GFR (Non-Af Amer) 75.6 BUN/Creatinine Ratio 1.5 L Glucose 84 Calcium 7.4 L Phosphorus Magnesium 1.6 L 04/26/18 04/27/18 04/27/18 13:47 05:33 05:33 WBC 9.37 RBC 4.08 L Hgb 12.6 Hct 37.3 MCV 91.4 MCH 30.9 MCHC 33.8 RDW Std Deviation 48.8 H RDW Coeff of Lázaro 14.7 H Plt Count 265 MPV 10.7 H Sodium 143 142 Potassium 3.7 D 3.9 Chloride 114 H 110 H Carbon Dioxide 28 26 Anion Gap 1.0 L 6.0 BUN 1 L 4 L Creatinine 0.79 0.76 Est Cr Clr Drug Dosing 40.0 41.6 Est GFR ( Amer) 79.7 83.5 Est GFR (Non-Af Amer) 68.7 72.0 BUN/Creatinine Ratio 1.9 L 5.4 L Glucose 112 H 109 H Calcium 7.9 L 8.0 L Phosphorus 1.6 L Magnesium 2.0 04/28/18 05:31 WBC RBC Hgb Hct MCV MCH MCHC RDW Std Deviation RDW Coeff of Lázaro Plt Count MPV Sodium 140 Potassium 4.0 Chloride 110 H Carbon Dioxide 29 Anion Gap 1.0 L BUN 6 L Creatinine 0.70 Est Cr Clr Drug Dosing 45.1 Est GFR ( Amer) 92.2 Est GFR (Non-Af Amer) 79.6 BUN/Creatinine Ratio 8.3 L Glucose 83 Calcium 8.7 Phosphorus 4.2 D Magnesium 1.8 Ordered: Cdif Tox B PCR* Test Result Flag Reference Site Cdiff Tox B PCR | Pos C.diff Toxin B | CV | Neg | Hospital Course (1) C. difficile diarrhea: (2) Hypokalemia: (3) Hypomagnesemia: (4) Hypophosphatemia: (5) Acute UTI (urinary tract infection): (6) Generalized weakness: (7) HTN (hypertension): (8) ANÍBAL (generalized anxiety disorder): (9) MDD (major depressive disorder): (10) CKD (chronic kidney disease), stage III: (11) Hypothyroidism: (12) Chronic hepatitis C: (13) DVT prophylaxis: Total Time Total Time Spent Total Time Spent (In Minutes): >35 minutes spent Total Time Includes: Examination of the Patient, Discharge Planning, Medication Reconciliation and Communication With Other Providers Discharge Plan Discharge Items Patient Disposition: Home - Self-Care Reason For Visit: DIARRHEA, C DIFF Discharge Diagnosis: C Difficle infection Low Potassium Low Magnesium Low Phosphorus Condition: Good Discharge Goals: Decrease discomfort, Improve disease control, Improve function , Increase independence and Prevent disease Activity: Resume your previous activity Lifting: Gradually increase as tolerated Bathing: No limitations Non-emergency contact: Primary Care Provider and Hospitalist Call non-emergency contact if: you have any medication questions, your symptoms worsen, your pain is not controlled, you have a fever and your temperature is above 100.5 Follow-up/Referrals: Cesar Parra [Primary Care Provider] - 05/03/18 1:05 pm Diet: Regular Other Ambulatory Orders: Basic Metabolic Panel (Routine) Timeframe: 20180503 Location: Determined by Patient Ordered By: Alessia Mckinley Magnesium (Routine) Timeframe: 20180503 Location: Determined by Patient Ordered By: Alessia Mckinley Phosphorous (Routine) Timeframe: 20180503 Location: Determined by Patient Ordered By: Alessia Mckinley Addtl Provider Instructions: You were admitted to [facility] on 04/23/18 for Diarrhea. You were diagnosed with an infection in your colon called C Diff. You were placed on antibiotics by mouth called Vancomycin. You will take this antibiotic 4 times a day until completed. You will Finish the antibiotic at the end of the day on 05/03/18. It is very important for you to complete the antibiotic in its entirety. You were further prescribed a pro biotic called Florastor, I recommend taking this daily. Probiotics help restore and protect your normal GI Leti. Also during your hospital stay your potassium, magnesium and phosphorus was low. These electrolyte were replaced both IV and by mouth. Your electrolytes were low due to high volume of stool output. There are prescriptions for you to get lab work done to monitor these electrolytes. Please complete within 5 days of discharge. Cdiff is a very contagious infection and it is important you and your family take appropriate precautions. Do not share bathrooms or showers until your antibiotic is complete and diarrhea has resolved. When cleaning bathroom and house hold items it is important to use clorox bleach products only to appropriately disinfect the areas. If you develop fever, abdominal pain or diarrhea please contact your Family Doctor immediately or return to ED. When returning home it is important to maintain a well balanced diet and stay well hydrated. It was a pleasure taking care of you during your stay at [facility]. If you or your family have any questions please feel free to contact me, my pager number is [phone]. Prescriptions: New Saccharomyces boulardii [Florastor] 250 mg Capsule 250 mg PO DAILY 14 Days Qty: 14 RF: 0 wrevsavgposl-riay-tssmq acid [Certavite-Antioxidant] 18-400 mg-mcg Tablet 1 tab PO QAM 30 Days Qty: 30 RF: 0 vancomycin 125 mg capsule 125 mg PO Q6 6 Days Qty: 22 RF: 0 Continue buspirone 5 mg tablet 5 mg PO BID RF: 0 amlodipine 10 mg tablet 10 mg PO DAILY RF: 0 levothyroxine 50 mcg tablet 50 mcg PO DAILY RF: 0 folic acid 1 mg tablet 1 mg PO DAILY RF: 0 duloxetine 20 mg capsule,delayed release(DR/EC) 20 mg PO DAILY RF: 0 duloxetine 60 mg capsule,delayed release(DR/EC) 60 mg PO DAILY RF: 0 aspirin [Aspir-81] 81 mg Tablet,Delayed Release (Dr/Ec) 81 mg PO DAILY RF: 0 celecoxib 100 mg capsule 100 mg PO BID RF: 0 cholecalciferol (vitamin D3) [Vitamin D3] 1,000 unit Tablet 1,000 unit PO DAILY RF: 0 olanzapine [Zyprexa] 15 mg Tablet 15 mg PO HS RF: 0 trazodone 100 mg tablet 1 dose PO UD RF: 0 Visit Report Forms: My [facility] [employer] [facility] Stand-Alone Forms: My [facility] [employer] Krames/Other Patient Handouts: Infec Clostridium Difficile Admission Data Admit Date/Time: 04/25/18 14:02 Attending Provider: Angela Horowitz Admit Provider: Felipe Parker Primary Care Provider: Cesar Parra Other Providers: Samuel Montenegro ; Ron Bermeo Service: Medical Other Pending Studies at Discharge: No"
[2018-04-28] MEDS: TRAZODONE HCL 100 MG TAB PO SCH (20:08)
[2018-04-28] MEDS: OLANZapine 5 MG TABLET PO SCH (20:09)
[2018-04-29] MEDS: VANCOMYCIN HCL 125 MG/2.5ML SOLN PO SCH ×5 (01:40→23:25)
[2018-04-29] MEDS: RASPBERRY SYRUP 5 ML UDP PO SCH ×5 (01:40→23:25)
[2018-04-29] MEDS: LEVOTHYROXINE SODIUM 50 MCG TABLET PO SCH (06:11)
[2018-04-29] MEDS: FOLIC ACID 1 MG TAB PO SCH (08:44)
[2018-04-29] MEDS: DULOXETINE HCL 20 MG CAP PO SCH (08:44)
[2018-04-29] MEDS: LACTOBACILLUS ACIDOPHILUS 1 GM PACK PO SCH ×3 (08:44→18:09)
[2018-04-29] MEDS: POTASSIUM CHLORIDE 20 MEQ TABCR PO SCH (08:44)
[2018-04-29] MEDS: ASPIRIN 81 MG ECTAB PO SCH (08:45)
[2018-04-29] MEDS: AMLODIPINE BESYLATE 5 MG TAB PO SCH (08:45)
[2018-04-29] MEDS: CEROVITE ADV FORMULA TAB PO SCH (08:45)
[2018-04-29] MEDS: SACCHAROMYCES BOULARDII 250 MG CAP PO SCH (08:45)
[2018-04-29] MEDS: DULOXETINE HCL 60 MG CAP PO SCH (08:46)
[2018-04-29] MEDS: CHOLECALCIFEROL 1,000 UNITS TAB PO SCH (08:46)
--- NOTE | 2018-04-29 14:27 | Hospitalist Progress Note ---
Date of Service April 29, 2018 Assessment & Plan (1) C. difficile diarrhea: Vanc PO, continues to have loose freq BMs, 6 BMs in first half of day. Luis Manuel PO Afebrile and no abdominal TTP. (2) HTN (hypertension): -Bp controlled on Norvasc, monitor (3) MDD (major depressive disorder): -Continue duloxetine mood is stable (4) CKD (chronic kidney disease), stage III: -renal fx at baseline, cr 0.76 -Avoid nephrotoxic medications (5) Hypothyroidism: -continue synthroid (6) Chronic hepatitis C: (7) DVT prophylaxis: -SCDS/heparin Full Disop-to home in 1-2 days Angela Horowitz DO [facility] Hospitalist Subjective 82 yo F with C-diff diarrhea. She is tolerating PO, afebrile and are without abdominal pain. 6 loose BMs per nursing today. Physical Exam 2 Vital Signs (Past 24 Hours): Last Vital Signs Temp 36.8 C 04/29/18 07:35 Pulse 88 04/29/18 07:35 Resp 18 04/29/18 07:35 BP 101/57 L 04/29/18 07:35 Pulse Ox 95 04/29/18 07:35 CONSTITUTIONAL: WNWD, vitals as above, generally well-appearing EYES: normal conjuctivae, no scleral icterus ENT: MMM RESPIRATORY: clear to auscultation bilaterally, no crackles, rales or wheezes, normal respiratory effort CARDIOVASCULAR: regular rate and rhythm, S1 and 2 heard without murmurs, gallops or rubs, no JVD, no peripheral edema GASTROINTESTINAL: soft, nontender, non-distended MUSCULOSKELETAL: no gross focal defecits. SKIN: warm and dry NEUROLOGIC: no gross focal deficits. Results & Data Medications Administered Current Inpatient Medications Acetaminophen (Tylenol) 650 mg PO Q4H PRN PRN Reason: pain/fever Stop: 05/23/18 20:49 Last Admin: 04/24/18 19:53 Dose: 650 mg Amlodipine Besylate (Norvasc) 10 mg PO DAILY [facility] Stop: 05/24/18 08:59 Last Admin: 04/29/18 08:45 Dose: 10 mg Aspirin (Ecotrin Ectab) 81 mg PO DAILY [facility] Stop: 05/24/18 08:59 Last Admin: 04/29/18 08:45 Dose: 81 mg Buspirone HCl (Buspar) 5 mg PO BID [facility] Stop: 05/23/18 20:59 Last Admin: 04/29/18 20:48 Dose: 5 mg Duloxetine HCl (Cymbalta) 20 mg PO DAILY [facility] Stop: 05/24/18 08:59 Last Admin: 04/29/18 08:44 Dose: 20 mg Duloxetine HCl (Cymbalta) 60 mg PO DAILY [facility] Stop: 05/24/18 08:59 Last Admin: 04/29/18 08:46 Dose: 60 mg Folic Acid (Folvite) 1 mg PO DAILY [facility] Stop: 05/24/18 08:59 Last Admin: 04/29/18 08:44 Dose: 1 mg Heparin Sodium (Porcine) (Heparin Sodium (Porcine)) 5,000 units SQ Q8 [facility] Stop: 05/30/18 05:59 Lactobacillus Acidophilus (Floranex Granules/Powder Packet) 1 gm PO TIDM [facility] Stop: 05/24/18 07:59 Last Admin: 04/29/18 18:09 Dose: 1 gm Levothyroxine Sodium (Synthroid) 50 mcg PO DAILYBB [facility] Stop: 05/24/18 06:29 Last Admin: 04/29/18 06:11 Dose: 50 mcg Multivitamins/Minerals (Multivitamin W/ Minerals Tab) 1 tab PO QAM [facility] Stop: 05/24/18 08:59 Last Admin: 04/29/18 08:45 Dose: 1 tab Olanzapine (Zyprexa) 15 mg PO HS [facility] Stop: 05/23/18 20:59 Last Admin: 04/29/18 20:49 Dose: 15 mg Ondansetron HCl (Zofran) 4 mg IV Q6H PRN PRN Reason: Nausea Stop: 05/23/18 20:49 Potassium Chloride (Klor-Con M20) 40 meq PO DAILY [facility] Stop: 05/27/18 08:59 Last Admin: 04/29/18 08:44 Dose: 40 meq Raspberry (Raspberry) 5 ml PO Q6 [facility] Stop: 05/08/18 00:00 Last Admin: 04/29/18 18:09 Dose: 5 ml Saccharomyces Boulardii (Florastor) 250 mg PO DAILY [facility] Stop: 05/24/18 11:44 Last Admin: 04/29/18 08:45 Dose: 250 mg Trazodone HCl (Desyrel) 100 mg PO HS [facility] Stop: 05/23/18 20:59 Last Admin: 04/29/18 20:48 Dose: 100 mg Vancomycin HCl (Vancomycin Hcl) 125 mg PO Q6 [facility] Stop: 05/04/18 00:00 Last Admin: 04/29/18 18:08 Dose: 125 mg Vitamin D (Vitamin D3) 1,000 units PO DAILY [facility] Stop: 05/24/18 08:59 Last Admin: 04/29/18 08:46 Dose: 1,000 units Zolpidem Tartrate (Ambien) 5 mg PO HS PRN PRN Reason: Sleep Stop: 05/24/18 19:57 Last Admin: 04/27/18 20:38 Dose: 5 mg _ (1) MDD (major depressive disorder) Active/Remission status: remission status unspecified Major depression episode severity: Major depression recurrence: unspecified whether recurrent Psychotic features: Qualified Code(s): F32.9 - Major depressive disorder, single episode, unspecified (2) Chronic hepatitis C Hepatic coma status: without hepatic coma Qualified Code(s): B18.2 - Chronic viral hepatitis C (3) Hypothyroidism Hypothyroidism type: unspecified Qualified Code(s): E03.9 - Hypothyroidism, unspecified (4) HTN (hypertension) Hypertension type: essential hypertension Qualified Code(s): I10 - Essential (primary) hypertension
[2018-04-29] MEDS: TRAZODONE HCL 100 MG TAB PO SCH (20:48)
[2018-04-29] MEDS: OLANZapine 5 MG TABLET PO SCH (20:49)
[2018-04-29] MEDS: ZOLPIDEM TARTRATE 5 MG TAB PO PRN (23:25)
[2018-04-30] MEDS: LEVOTHYROXINE SODIUM 50 MCG TABLET PO SCH (06:38)
[2018-04-30] MEDS: RASPBERRY SYRUP 5 ML UDP PO SCH ×3 (06:38→17:38)
[2018-04-30] MEDS: VANCOMYCIN HCL 125 MG/2.5ML SOLN PO SCH ×3 (06:38→17:41)
[2018-04-30 06:49] LABS: Prothrombin Time 10.5 Seconds (9.0-12.0)
[2018-04-30] MEDS: POTASSIUM CHLORIDE 20 MEQ TABCR PO SCH (07:58)
[2018-04-30] MEDS: SACCHAROMYCES BOULARDII 250 MG CAP PO SCH (07:58)
[2018-04-30] MEDS: FOLIC ACID 1 MG TAB PO SCH (07:58)
[2018-04-30] MEDS: CEROVITE ADV FORMULA TAB PO SCH (07:58)
[2018-04-30] MEDS: DULOXETINE HCL 20 MG CAP PO SCH (07:58)
[2018-04-30] MEDS: AMLODIPINE BESYLATE 5 MG TAB PO SCH (07:58)
[2018-04-30] MEDS: LACTOBACILLUS ACIDOPHILUS 1 GM PACK PO SCH ×3 (07:59→17:38)
[2018-04-30] MEDS: DULOXETINE HCL 60 MG CAP PO SCH (07:59)
[2018-04-30] MEDS: CHOLECALCIFEROL 1,000 UNITS TAB PO SCH (07:59)
[2018-04-30] MEDS: ASPIRIN 81 MG ECTAB PO SCH (08:07)
[2018-04-30 09:45] LABS: BUN Creatinine Ratio 15.1 (10-20); Creatinine Clr Calc Pharmacy 36.3 ml/min; Est GFR (African American) 70.9; Est GFR (Non-African American) 61.2; Magnesium 1.9 mg/dl (1.8-2.4)
[2018-04-30] MEDS: HEPARIN SOD 5,000 UNIT/0.5 ML VIAL SQ SCH ×3 (12:05→20:49)
--- NOTE | 2018-04-30 19:15 | Hospitalist Progress Note ---
Date of Service April 30, 2018 Assessment & Plan (1) C. difficile diarrhea: Vanc PO, Stool frequency and consistency is imporving. Luis Manuel PO Afebrile and no abdominal TTP. (2) HTN (hypertension): -Bp controlled on Norvasc, monitor (3) MDD (major depressive disorder): -Continue duloxetine mood is stable (4) CKD (chronic kidney disease), stage III: -renal fx at baseline, cr 0.76 -Avoid nephrotoxic medications (5) Hypothyroidism: -continue synthroid (6) Chronic hepatitis C: (7) DVT prophylaxis: SCDS/heparin Full Disop-to home in 1-2 days Angela Horowitz DO [facility] Hospitalist Subjective feeling better today but not back to baseline 1 BM so far this morning. tolerating PO denies abdominal pain Physical Exam 2 Vital Signs (Past 24 Hours): Last Vital Signs Temp 36.6 C 04/30/18 15:42 Pulse 86 04/30/18 15:42 Resp 18 04/30/18 15:42 BP 110/70 04/30/18 15:42 Pulse Ox 93 04/30/18 15:42 CONSTITUTIONAL: WNWD, vitals as above, generally well-appearing EYES: normal conjuctivae, no scleral icterus ENT: MMM RESPIRATORY: clear to auscultation bilaterally, no crackles, rales or wheezes, normal respiratory effort CARDIOVASCULAR: regular rate and rhythm, S1 and 2 heard without murmurs, gallops or rubs, no JVD, no peripheral edema GASTROINTESTINAL: soft, nontender, non-distended MUSCULOSKELETAL: no gross focal defecits. SKIN: warm and dry NEUROLOGIC: no gross focal deficits. Results & Data Laboratory Results [facility] 04/30/18 05:25 Sodium 138 Potassium 4.0 Chloride 104 Carbon Dioxide 29 BUN 13 D Creatinine 0.87 Glucose 85 Calcium 9.0 Medications Administered Current Inpatient Medications Acetaminophen (Tylenol) 650 mg PO Q4H PRN PRN Reason: pain/fever Stop: 05/23/18 20:49 Last Admin: 04/24/18 19:53 Dose: 650 mg Amlodipine Besylate (Norvasc) 10 mg PO DAILY [facility] Stop: 05/24/18 08:59 Last Admin: 04/30/18 07:58 Dose: 10 mg Aspirin (Ecotrin Ectab) 81 mg PO DAILY [facility] Stop: 05/24/18 08:59 Last Admin: 04/30/18 08:07 Dose: 81 mg Buspirone HCl (Buspar) 5 mg PO BID [facility] Stop: 05/23/18 20:59 Last Admin: 04/30/18 07:58 Dose: 5 mg Duloxetine HCl (Cymbalta) 20 mg PO DAILY [facility] Stop: 05/24/18 08:59 Last Admin: 04/30/18 07:58 Dose: 20 mg Duloxetine HCl (Cymbalta) 60 mg PO DAILY [facility] Stop: 05/24/18 08:59 Last Admin: 04/30/18 07:59 Dose: 60 mg Folic Acid (Folvite) 1 mg PO DAILY [facility] Stop: 05/24/18 08:59 Last Admin: 04/30/18 07:58 Dose: 1 mg Heparin Sodium (Porcine) (Heparin Sodium (Porcine)) 5,000 units SQ Q8 [facility] Stop: 05/30/18 07:14 Last Admin: 04/30/18 13:16 Dose: Not Given Lactobacillus Acidophilus (Floranex Granules/Powder Packet) 1 gm PO TIDM [facility] Stop: 05/24/18 07:59 Last Admin: 04/30/18 17:38 Dose: 1 gm Levothyroxine Sodium (Synthroid) 50 mcg PO DAILYBB [facility] Stop: 05/24/18 06:29 Last Admin: 04/30/18 06:38 Dose: 50 mcg Multivitamins/Minerals (Multivitamin W/ Minerals Tab) 1 tab PO QAM [facility] Stop: 05/24/18 08:59 Last Admin: 04/30/18 07:58 Dose: 1 tab Olanzapine (Zyprexa) 15 mg PO HS [facility] Stop: 05/23/18 20:59 Last Admin: 04/29/18 20:49 Dose: 15 mg Ondansetron HCl (Zofran) 4 mg IV Q6H PRN PRN Reason: Nausea Stop: 05/23/18 20:49 Potassium Chloride (Klor-Con M20) 40 meq PO DAILY [facility] Stop: 05/27/18 08:59 Last Admin: 04/30/18 07:58 Dose: 40 meq Raspberry (Raspberry) 5 ml PO Q6 [facility] Stop: 05/08/18 00:00 Last Admin: 04/30/18 17:38 Dose: 5 ml Saccharomyces Boulardii (Florastor) 250 mg PO DAILY [facility] Stop: 05/24/18 11:44 Last Admin: 04/30/18 07:58 Dose: 250 mg Trazodone HCl (Desyrel) 100 mg PO HS [facility] Stop: 05/23/18 20:59 Last Admin: 04/29/18 20:48 Dose: 100 mg Vancomycin HCl (Vancomycin Hcl) 125 mg PO Q6 [facility] Stop: 05/04/18 00:00 Last Admin: 04/30/18 17:41 Dose: 125 mg Vitamin D (Vitamin D3) 1,000 units PO DAILY [facility] Stop: 05/24/18 08:59 Last Admin: 04/30/18 07:59 Dose: 1,000 units Zolpidem Tartrate (Ambien) 5 mg PO HS PRN PRN Reason: Sleep Stop: 05/24/18 19:57 Last Admin: 04/29/18 23:25 Dose: 5 mg _ (1) MDD (major depressive disorder) Active/Remission status: remission status unspecified Major depression episode severity: Major depression recurrence: unspecified whether recurrent Psychotic features: Qualified Code(s): F32.9 - Major depressive disorder, single episode, unspecified (2) Chronic hepatitis C Hepatic coma status: without hepatic coma Qualified Code(s): B18.2 - Chronic viral hepatitis C (3) Hypothyroidism Hypothyroidism type: unspecified Qualified Code(s): E03.9 - Hypothyroidism, unspecified (4) HTN (hypertension) Hypertension type: essential hypertension Qualified Code(s): I10 - Essential (primary) hypertension
[2018-04-30] MEDS: TRAZODONE HCL 100 MG TAB PO SCH (20:47)
[2018-04-30] MEDS: OLANZapine 5 MG TABLET PO SCH (20:48)
[2018-04-30] MEDS: ZOLPIDEM TARTRATE 5 MG TAB PO PRN (20:55)
[2018-05-01] MEDS: VANCOMYCIN HCL 125 MG/2.5ML SOLN PO SCH ×3 (00:27→12:36)
[2018-05-01] MEDS: RASPBERRY SYRUP 5 ML UDP PO SCH ×3 (00:27→12:36)
[2018-05-01] MEDS: HEPARIN SOD 5,000 UNIT/0.5 ML VIAL SQ SCH ×2 (05:32→14:15)
[2018-05-01] MEDS: LEVOTHYROXINE SODIUM 50 MCG TABLET PO SCH (05:32)
[2018-05-01] MEDS: LACTOBACILLUS ACIDOPHILUS 1 GM PACK PO SCH ×2 (08:06→12:35)
[2018-05-01] MEDS: FOLIC ACID 1 MG TAB PO SCH (08:06)
[2018-05-01] MEDS: DULOXETINE HCL 60 MG CAP PO SCH (08:06)
[2018-05-01] MEDS: CEROVITE ADV FORMULA TAB PO SCH (08:06)
[2018-05-01] MEDS: AMLODIPINE BESYLATE 5 MG TAB PO SCH (08:06)
[2018-05-01] MEDS: DULOXETINE HCL 20 MG CAP PO SCH (08:06)
[2018-05-01] MEDS: CHOLECALCIFEROL 1,000 UNITS TAB PO SCH (08:06)
[2018-05-01] MEDS: ASPIRIN 81 MG ECTAB PO SCH (08:07)
[2018-05-01] MEDS: SACCHAROMYCES BOULARDII 250 MG CAP PO SCH (08:07)
[2018-05-01] MEDS: POTASSIUM CHLORIDE 20 MEQ TABCR PO SCH (08:08)
[2018-05-01] MEDS ORDERED: SODIUM CHLORIDE 0.9% 1000ML 1,000 ML IV SCH (12:30)
--- NOTE | 2018-05-01 13:29 | Discharge Summary ---
Date of Service May 01, 2018 Admission HPI Per Admitting Provider HISTORY OF PRESENT ILLNESS: This is an 82-year-old female with past medical history significant for hypothyroidism, chronic kidney disease stage III, depression, alcohol dependence, chronic hepatitis C, general anxiety disorder, hypertension. Presents with several episodes of diarrhea and found to have C. diff in the ER. ER tried to send her home, but patient does not feel safe to go home, so we are called for admission. The patient is currently resting comfortably, hemodynamically stable. She says that she is having multiple episodes of diarrhea since last few days. No blood in the stools, they were brownish color. Poor appetite and vomited once and also having lower abdominal pain, moderate in severity. Denies any fever, chills, no recent antibiotic use. Patient recently was in the hospital for weakness. At that time, there was recommendation for placement, but patient refused and she was ambulating, walking in the room and she was discharged home as she wanted to go home. The patient says at home she lives with her son and she is ambulating okay without any help. Denies any headaches, no earaches, no sore throat, no difficulty swallowing. No chest pain. Says she is always somewhat short of breath, no cough. Admission Exam Per Admitting Provider PHYSICAL EXAMINATION: GENERAL: The patient is old and frail, not in acute distress. VITAL SIGNS: Temperature 37, respiratory rate 16, pulse 95, blood pressure 150/75, oxygen 95% room air. HEENT: No pallor, no icterus. Pupils equal, round, and reactive to light. NECK: No JVD, no neck masses, no carotid bruit. CARDIOVASCULAR: S1, S2 heard, regular rate and rhythm, no murmur, no gallop. RESPIRATORY SYSTEM: Normal AP diameter. No accessory muscle use. No wheezing, no crackles. ABDOMEN: Soft, bowel sounds present. No distention. Mild discomfort. No guarding, no rigidity. CENTRAL NERVOUS SYSTEM: Cranial nerves II-XII grossly intact. Nonfocal. EXTREMITIES: Trace pedal edema present. No erythema seen. Principal Diagnosis C Difficle infection Low Potassium Low Magnesium Low Phosphorus Discharge Exam CONSTITUTIONAL: WNWD, vitals as above, generally well-appearing EYES: normal conjuctivae, no scleral icterus ENT: MMM RESPIRATORY: clear to auscultation bilaterally, no crackles, rales or wheezes, normal respiratory effort CARDIOVASCULAR: regular rate and rhythm, S1 and 2 heard without murmurs, gallops or rubs, no JVD, no peripheral edema GASTROINTESTINAL: soft, nontender, non-distended MUSCULOSKELETAL: no gross focal defecits. SKIN: warm and dry NEUROLOGIC: no gross focal deficits. Discharge Data Allergies Allergy/AdvReac Type Severity Reaction Status Date / Time No Known Allergies Allergy Unknown Verified 04/23/18 17:36 Consultations 04/23/18 19:54 ED Decision to Admit Stat 04/23/18 20:50 Consult Case Management - Discharge Planning Routine Hospital Course (1) C. difficile diarrhea: (2) HTN (hypertension): (3) MDD (major depressive disorder): (4) CKD (chronic kidney disease), stage III: (5) Hypothyroidism: (6) Chronic hepatitis C: 82-year-old female presented with diarrhea, vomiting, abdominal pain. Lab work revealed a white count of 10.68, normal H&H, normal platelets, sodium 133, bicarb 20, BUN 22, creatinine 1.18, potassium 3.6. She was admitted to the hospitalist service as she was having 10-18 bowel movements a day and intolerant of p.o. She was started on IV fluids and vancomycin 4 times daily after C. difficile was positive. For C. difficile diarrhea. She was also started on Rocephin for empiric therapy of a acute cystitis. Urine culture ultimately grew mixed skin jennifer and Rocephin was discontinued as well as Shaw catheter in the setting of C. difficile to minimize antibiotic use. Shaw catheter was also discontinued. Over the next several days she continued to require supportive therapy and electrolyte replacement. At time of discharge, approximately 1 week later, diarrhea had improved to more controlled, loose but formed stools. She was hemodynamically stable and afebrile. Physical exam was unremarkable. She was ambulating at baseline and tolerating p.o. She was sent home in stable condition with close primary care follow-up recommended. Total Time Total Time Spent Total Time Spent (In Minutes): 60 Total Time Includes: Examination of the Patient, Discharge Planning, Medication Reconciliation and Communication With Other Providers Discharge Plan Discharge Items Patient Disposition: Home - Self-Care Reason For Visit: DIARRHEA, C DIFF Discharge Diagnosis: C Difficle infection Low Potassium Low Magnesium Low Phosphorus Condition: Good Discharge Goals: Decrease discomfort, Improve disease control, Improve function , Increase independence and Prevent disease Activity: Resume your previous activity Lifting: Gradually increase as tolerated Bathing: No limitations Non-emergency contact: Primary Care Provider and Hospitalist Call non-emergency contact if: you have any medication questions, your symptoms worsen, your pain is not controlled, you have a fever and your temperature is above 100.5 Follow-up/Referrals: Cesar Parra [Primary Care Provider] - 05/03/18 1:05 pm Diet: Regular Other Ambulatory Orders: Basic Metabolic Panel (Routine) Timeframe: 20180503 Location: Determined by Patient Ordered By: Alessia Mckinley Magnesium (Routine) Timeframe: 20180503 Location: Determined by Patient Ordered By: Alessia Mckinley Phosphorous (Routine) Timeframe: 20180503 Location: Determined by Patient Ordered By: Alessia Rosstl Provider Instructions: You were admitted to [facility] on 04/23/18 for Diarrhea. You were diagnosed with an infection in your colon called C Diff. You were placed on antibiotics by mouth called Vancomycin. You will take this antibiotic 4 times a day until completed. You will Finish the antibiotic at the end of the day on 05/03/18. It is very important for you to complete the antibiotic in its entirety. You were further prescribed a pro biotic called Florastor, I recommend taking this daily. Probiotics help restore and protect your normal GI Jennifer. Also during your hospital stay your potassium, magnesium and phosphorus was low. These electrolyte were replaced both IV and by mouth. Your electrolytes were low due to high volume of stool output. There are prescriptions for you to get lab work done to monitor these electrolytes. Please complete within 5 days of discharge. Cdiff is a very contagious infection and it is important you and your family take appropriate precautions. Do not share bathrooms or showers until your antibiotic is complete and diarrhea has resolved. When cleaning bathroom and house hold items it is important to use clorox bleach products only to appropriately disinfect the areas. If you develop fever, abdominal pain or diarrhea please contact your Family Doctor immediately or return to ED. When returning home it is important to maintain a well balanced diet and stay well hydrated. You have the following appointment: 05/03/2018 1:20 PM Provider Cesar Parra MD [facility] It was a pleasure taking care of you! Please call if you have any questions or problems. You can reach a [facility] hospitalist on duty at [facility] 24 hours a day by calling [phone]. Take care of yourself. Angela Horowitz, [facility] Hospitalist Prescriptions: New Saccharomyces boulardii [Florastor] 250 mg Capsule 250 mg PO DAILY 14 Days Qty: 14 RF: 0 [id number] acid [Certavite-Antioxidant] 18-400 mg-mcg Tablet 1 tab PO QAM 30 Days Qty: 30 RF: 0 vancomycin 125 mg capsule 125 mg PO Q6H 5 Days Qty: 20 RF: 0 Continue buspirone 5 mg tablet 5 mg PO BID RF: 0 amlodipine 10 mg tablet 10 mg PO DAILY RF: 0 levothyroxine 50 mcg tablet 50 mcg PO DAILY RF: 0 folic acid 1 mg tablet 1 mg PO DAILY RF: 0 duloxetine 20 mg capsule,delayed release(DR/EC) 20 mg PO DAILY RF: 0 duloxetine 60 mg capsule,delayed release(DR/EC) 60 mg PO DAILY RF: 0 aspirin [Aspir-81] 81 mg Tablet,Delayed Release (Dr/Ec) 81 mg PO DAILY RF: 0 celecoxib 100 mg capsule 100 mg PO BID RF: 0 cholecalciferol (vitamin D3) [Vitamin D3] 1,000 unit Tablet 1,000 unit PO DAILY RF: 0 olanzapine [Zyprexa] 15 mg Tablet 15 mg PO HS RF: 0 trazodone 100 mg tablet 1 dose PO UD RF: 0 Visit Report Forms: My [facility] Portal Stand-Alone Forms: My [facility]/Other Patient Handouts: Infec Clostridium Difficile Discharge Orders: Discharge Order (Routine); Ordered 05/01/18 Ordered By: Angela Horowitz Admission Data Admit Date/Time: 04/25/18 14:02 Attending Provider: Angela Horowitz Admit Provider: Felipe Parker Primary Care Provider: Cesar Parra Other Providers: Samuel Montenegro Gary Service: Medical Other Interventions: Discharge Summary Assessment (RN) Last Done: 05/01/18 13:41 Pending Studies at Discharge: No DC Date/Time DO NOT enter until pt leaves facility: 05/01/18 18:11
== END 2018-05-01 18:11 | disposition home or self-care (01) | DRG 372 ==
LOC: 4E 16:55 → ED 16:55 → SUATTDRO 19:57 → 4E 20:32 → SUATTDRO 04-25 14:02
DX: F32.9 Major depressive disorder, single episode, unspecified; Z79.82 Long term (current) use of aspirin; A04.72 Enterocolitis due to Clostridium difficile, not specified as recurrent; E03.9 Hypothyroidism, unspecified; F10.20 Alcohol dependence, uncomplicated; B18.2 Chronic viral hepatitis C; N18.3 Chronic kidney disease, stage 3 (moderate); I12.9 Hypertensive chronic kidney disease with stage 1 through stage 4 chronic kidney disease, or unspecified chronic kidney disease; E83.39 Other disorders of phosphorus metabolism; Z87.891 Personal history of nicotine dependence; F41.1 Generalized anxiety disorder; E87.6 Hypokalemia; N39.0 Urinary tract infection, site not specified; E83.42 Hypomagnesemia